=== PATIENT | male | born 1975 | race Caucasian/White ===

== ENCOUNTER 2024-06-19 10:54 | Inpatient (IN) ==
[~2024-06-19 10:54] MED LIST: ETOMIDATE 2 MG/ML 20 ML VIAL IV ONE
[2024-06-19] MEDS: SODIUM BICARB 8.4% INJ 50 MEQ/50 ML SYR IV STA (11:08)
[2024-06-19] MEDS: SODIUM CHLORIDE 0.9% 1,000 ML IV ONE ×2 (11:09→11:20)
[2024-06-19] MEDS: SODIUM BICARB 8.4% INJ 50 MEQ/50 ML SYR IV ONE (11:09)
[2024-06-19 11:14] LABS: iSTAT Blood Urea Nitrogen 48 mg/dl (7-18); iSTAT Carbon Dioxide 7 mmol/L (24-31); iSTAT Chloride 98 mmol/L (101-112); iSTAT Creatinine 2.2 mg/dl (0.6-1.3); iSTAT Glucose > 700 mg/dl (70-99); iSTAT Hematocrit 47 % (42-52); iSTAT Ionized Calcium 1.24 mmol/l (1.12-1.32); iSTAT Sodium 121 mmol/L (135-144)
[2024-06-19 11:16] LABS: Oxygen Saturation VBG 80.7 %; PCO2 VBG 52 mmHg (38-50); PO2 VBG 52 mmHg; pH VBG < 7.00 (7.36-7.41)
[2024-06-19] MEDS: LIDOCAINE 2% JELLY 5 ML TUBE EXT ONE ×2 (11:19→11:20)
[2024-06-19] MEDS ORDERED: PHARMACY GLYCEMIC MGMT CONSULT PRN (11:25)
[2024-06-19] MEDS: CEFEPIME 2000MG 2,000 MG/20 ML SYR IV STA (11:28)
--- NOTE | 2024-06-19 11:28 | XRay Report ---
XR chest 1V portable CLINICAL HISTORY: sob COMPARISON STUDY: None FINDINGS: Single view semierect portable chest demonstrates no acute cardiopulmonary process. There i s no evidence of pneumonia or pleural effusion. There is no pneumothorax or atelectasis. There are va telly nodular opacities projected over the right upper lobe. Consider chest CT the appropriate clinical context. Heart size and pulmonary vascularity are unremarkable. IMPRESSION: Vague right upper lobe nodularity. Consider chest CT correlation. ACT 112: Negative or not required by law. Electronically signed by: Brandy Moise M.D. 06/19/2024 11:27 AM
[2024-06-19 11:44] LABS: INR 1.1 (0.9-1.1); Partial Thromboplastin Time 54 Seconds (21-31); Prothrombin Time 11.5 Seconds (9.0-12.0)
[2024-06-19 11:51] LABS: Albumin Level 4.1 gm/dl (3.4-5.0); BUN Creatinine Ratio 20.6 (10-20); Bilirubin,Total 0.4 mg/dl (0.2-1.0); Calcium 9.3 mg/dl (8.6-10.3); Globulin 4.1 gm/dl (2.5-4.0); Magnesium 3.9 mg/dl (1.7-2.4); Total Protein 8.2 gm/dl (6.0-8.3); Troponin I High Sensitivity 36.1 pg/ml (0-20)
[2024-06-19 11:57] LABS: Basophils # (auto) 0.02 K/uL (0.00-0.20); Basophils % (auto) 0.1 %; Eosinophils # (auto) 0.01 K/uL (0.00-0.50); Hematocrit (blood only) 45.3 % (42.0-52.0); Hemoglobin 14.7 g/dl (14.0-18.0); Immature Granulocytes # (auto) 1.16 K/uL (0.01-0.20); Immature Granulocytes % (auto) 4.6 %; Lymphocytes # (auto) 1.87 K/uL (1.20-3.40); Lymphocytes % (auto) 7.5 %; Mean Corpuscular Hemoglobin 31.2 pg (25.0-34.0); Mean Corpuscular Hgb Conc 32.5 g/dL (32.0-36.0); Mean Corpuscular Volume 96.2 fL (80.0-100.0); Mean Platelet Volume 9.5 fL (9.4-12.4); Monocytes # (auto) 2.96 K/uL (0.11-0.59); Monocytes % (auto) 11.8 %; Neutrophils # (auto) 18.97 K/uL (1.40-6.50); Platelet Count 348 K/uL (130-400); RDW Coefficient of Variation 12.3 % (11.5-14.5); RDW Standard Deviation 43.9 fL (36.4-46.3); Red Blood Count 4.71 M/uL (4.70-6.10); White Blood Count 24.99 K/ul (4.8-10.8)
[2024-06-19 11:58] LABS: Appearance Urine Clear (Clear); Bacteria Urine Automated None Seen (None Seen); Bilirubin Urine Negative (Negative); Blood Urine 2+ (Negative); Color Urine Yellow; Epithelial Cell Urine Auto 0-2 /hpf (0-2); Glucose Urine UA 3+ (Negative); Granular Casts Urine Present /lpf (None Prsent); Ketones Urine 3+ (Negative); Leukocyte Esterase Urine Negative (Negative); Nitrite Urine Negative (Negative); Protein Urine 2+ (Negative); RBC Urine Automated 0-2 /hpf (0-2); Specific Gravity Urine 1.022 (1.000-1.030); Urobilinogen Urine Negative (Negative); WBC Urine Automated 0-5 /hpf (0-5)
[2024-06-19 11:59] LABS: Thyroid Stimulating Hormone 0.693 uIu/ml (0.300-4.500)
[2024-06-19] MEDS: NovoLIN-R BOLUS FROM BAG IV ONE (12:14)
[2024-06-19] MEDS: INSULIN REGULAR 250 UNITS in SODIUM CHLORIDE 0.9% 247.5 ML IV SCH (12:14)
[2024-06-19] MEDS: STAT IV Infusion **Titration per Protocol STA ×2 (12:17→13:57)
[2024-06-19 12:19] LABS: Adenovirus PCR Not Detected (NotDetected); Bordetella parapertussis PCR Not Detected (NotDetected); Bordetella pertussis PCR Not Detected (NotDetected); Chlamydia pneumoniae PCR Not Detected (NotDetected); Coronavirus 229E PCR Not Detected (NotDetected); Coronavirus CoV-2 (COVID19)PCR Not Detected (NotDetected); Coronavirus HKU1 PCR Not Detected (NotDetected); Coronavirus NL63 PCR Not Detected (NotDetected); Coronavirus OC43PCR Not Detected (NotDetected); Human Metapneumovirus PCR Not Detected (NotDetected); Influenza A (H1 2009) PCR DETECTED (NotDetected); Influenza B PCR Not Detected (NotDetected); Mycoplasma pneumoniae PCR Not Detected (NotDetected); Parainfluenza Virus 1 PCR Not Detected (NotDetected); Parainfluenza Virus 2 PCR Not Detected (NotDetected); Parainfluenza Virus 3 PCR Not Detected (NotDetected); Parainfluenza Virus 4 PCR Not Detected (NotDetected); Respiratory Syncytial VirusPCR Not Detected (NotDetected); Rhinovirus/Enterovirus PCR Not Detected (NotDetected)
[2024-06-19] MEDS ORDERED: LORazepam 2 MG/1 ML VIAL IV PRN ×3 (12:19)
[2024-06-19] MEDS ORDERED: Ativan IV Alcohol Withdrawal--Active Protocol IV PRN (12:19)
--- NOTE | 2024-06-19 12:21 | CT Scan Report ---
CT OF THE HEAD WITHOUT CONTRAST CLINICAL HISTORY: Altered mental status. Syncope. COMPARISON STUDY: No previous studies for comparison. CT DOSE: 1250.21 mGy.cm TECHNIQUE: Helical axial images of the head were obtained without IV contrast. Automated exposure con trol was utilized for the study. A dose lowering technique was utilized adhering to the principles o f ALARA. FINDINGS: This exam is mildly compromised by motion artifact. No acute intracranial hemorrhage, midli ne shift or mass effect is present. The ventricular system is unremarkable. The basal cisterns are pa tent. No extra-axial collections are present. There are no findings to suggest acute dural sinus thro mbosis or acute territorial infarct. No significant calvarial abnormalities are present. Visualized p ortions of the sinuses and mastoid air cells are clear. IMPRESSION: No acute intracranial findings. Exam mildly compromised by motion artifact. ACT 112: Negative or not required by law. Electronically signed by: Won Max M.D. 06/19/2024 12:20 PM
[2024-06-19] MEDS: SODIUM CHLORIDE 0.9% 500 ML IV ONE ×2 (12:24→22:36)
[2024-06-19 12:27] LABS: BUN Creatinine Ratio 20.9 (10-20); Calcium 8.7 mg/dl (8.6-10.3); Creatinine Clr Calc Pharmacy 38.5 ml/min; Phosphorus 11.1 mg/dl (2.5-4.9)
[2024-06-19] MEDS: PLASMA-LYTE A 1,000 ML IV ONE ×2 (12:27→17:40)
[2024-06-19 12:29] LABS: Amphetamines+Metham, Urine Neg (Neg); Barbiturates, Urine Neg (Neg); Benzodiazepine, Urine Neg (Neg); Cocaine, Urine Neg (Neg); Fentanyl, Urine Neg (Neg); MDMA (Ecstacy), Urine Neg (Neg); Marijuana, Urine Neg (Neg); Methadone, Urine Neg (Neg); Opiate, Urine Neg (Neg); Phencyclidine, Urine Neg (Neg)
[2024-06-19 12:32] LABS: Potassium 5.1 mmol/L (3.5-5.1)
[2024-06-19] MEDS: PLASMA-LYTE A 500 ML IV ONE (12:37)
--- NOTE | 2024-06-19 12:39 | History & Physical Report ---
Date of Service June 19, 2024 Assessment & Plan (1) HHS (hypothenar hammer syndrome): Plan: 49-year-old male with history of type 2 diabetes recently rationing insulin due to cost, alcohol abuse with high risk for withdrawal who presents with acute respiratory failure due to flu A with possible superimposed pneumonia, suspected HHS, and potential early alcohol withdrawal with last drink 2 days prior due to illness. In the ER is profoundly acidotic, was initially observed for improvement following bicarb infusions however likely worsened and with additional concern for alcohol withdrawal, persistent acidosis, and respiratory failure was intubated and admitted to the ICU Acute respiratory failure Influenza A+, suspected superimposed pneumonia -Flu A positive. Tamiflu 75 mg x 1 then 30 twice daily if able to take p.o. or OG -For secondary pneumonia suspected due to x-ray opacities, leukocytosis with left shift cefepime/vancomycin. MRSA nare pending. VBG less than 7/52/52/HCO3 not able to be performed ABG pH 6.7 //6 High risk for respiratory compromise, also with underlying concerns for severe alcohol withdrawal now 2 days out from last drink.Subsequently intubated for respiratory failure Target tidal volume 500, serial gas measurements Received 2 units of push bicarb, additional 3 units were ordered Fluids per [facility] protocol JAMES, prerenal - Baseline creatinine 1.1. Creatinine acutely elevated 2.5 to on admission. Alcohol abuse Hemoglobin 14.7, no evidence of GI bleed. Alcohol is negative on admission Per collateral from family drinks 8 large can alcoholic beverages "hard Mountain Dew "like drinks, when drinking out with friends will drink up to an additional half 5th of liquor, otherwise 1/5 or handle last around a week. No recent alcohol free days High risk for withdrawal Patient subsequently on reevaluation was intubated, switched to propofol for sedation Admitted to ICU [facility] Type II diabetic, no history of HHS/DKA Insulin gtt. adjust per protocol, goal BSG decrease of no more than around 150 -200/h Urine ketones are present, critical metabolic acidosis, pseudohyponatremia, potassium is 5.0 Per last note review patient had been on Ozempic however on talking to family he is not taking this. He switch back to [id number] Novolin 70/30 which he has been rationing out due to cost. 1 L of saline infused by time of evaluation, 2.5 L a total ordered. Switched to Plasma-Lyte Potassium is normal we will continue initial resuscitation with Plasma-Lyte. Switch to D5 LR at glycemic target per protocol BMP/mag/Phos every 4 hours, BSG hourly. Trend VBG Lactate 4.1, downtrending 3.4 on reassessment Right arterial IV stick Patient did have a right AC IV in place during resuscitation. During evaluation and resuscitation was noted to have pulsatile flow. On further evalu ation pulsatile flow into syringe was confirmed consistent with serial IV. IV was subsequently removed with pressure applied for 5 minutes and then wrapped in a dressing. Medications discussed repeated through IV or IV fluids 2 doses of bicarb DVT prophylaxis: Heparin due to renal dysfunction Diet: N.p.o. CODE STATUS: Full code. Surrogate decision maker would be patient's mother. He has no spouse or children Disposition: ICU (2) Influenza A: (3) T2DM (type 2 diabetes mellitus): (4) Alcohol use disorder: History of Present Illness Primary Care Provider: DO Barrett De La Cruz Celestine is a 49-year-old male with past medical history of type II DM, alcohol use disorder with 4-5 drinks per day generally complaint of on prior counseling visit as outpatient Leukocytosis 24.9 with left shift VBG pH less than 7, pCO2 52, HCO3 not able to be performed Bicarb 7 Anion gap [id number] 22 BSG greater than 700 Lactate 4.1 Total bilirubin normal, AST/ALT/alk phos 131/70/157 suspected shock liver Ammonia 128 High sensitive troponin 36.1 UA is not infected appearing, granular casts with profound volume contraction Flu positive Patient unable to give history due to mental status. Collateral collected from family. Was otherwise well until approximately 1 day ago when he developed chills, cough, and bodyaches. Patient is a diabetic and has been rationing his insulin for several weeks due to cost. No longer takes Ozempic, has not in many months. Also drinks round 8 large hard alcohol beverages a day (Mountain Dew hard to drink type beverages) and in addition to liquor. 1/5 to a handle of liquor might last around a week, but when out with a friend will drink around to half liquor a night "and still be going for more ". No alcohol free days and recent memory of family, although patient last drink was around 2 days ago due to feeling acutely ill. No history of heart disease or lung disease No known history of medication allergies Family is not aware of any recreational drug use Full code. Surrogate decision maker would be patient's mother. He has no living children or spouse Allergies Allergy/AdvReac Type Severity Reaction Status Date / Time No Known Allergies Allergy Verified 09/28/23 11:33 Home Medications Medication Instructions Recorded Confirmed Type multivitamin 1 tab PO QAM 06/08/22 06/19/24 History blood-glucose sensor (FreeStyle #2 ea 12/31/23 12/31/23 Rx Valeri 3 Sensor device) albuterol sulfate 90 mcg/actuation 1 puff inhalation DIRECTED PRN 06/19/24 06/19/24 History aerosol inhaler sob atorvastatin 10 mg tablet 10 mg PO UD 06/19/24 06/19/24 History azithromycin 250 mg tablet 250 mg PO DIRECTED 06/19/24 06/19/24 History semaglutide 0.25 mg or 0.5 mg (2 0.5 mg subcut UD 06/19/24 06/19/24 History mg/3 mL) subcutaneous pen injector (Ozempic) valacyclovir 500 mg tablet 500 mg PO UD PRN Outbreak 06/19/24 06/19/24 History Past Med/Surg History Problem List (Updated 06/19/24 @ 13:44 by Rosendo Wang MD) Influenza A HHS (hypothenar hammer syndrome) Encounter for pre-operative examination Alcohol use disorder T2DM (type 2 diabetes mellitus) Medical History Alcohol use disorder DM type 2 (diabetes mellitus, type 2) History of gastroesophageal reflux (GERD) denies current issues. Suspected sleep apnea Surgical History History of ankle surgery Rt History of wisdom tooth extraction Family History (Updated 07/23/22 @ 10:11 by MÓNICA Gaffney) Mother Benign breast neoplasm Breast cancer Father Heart disease Grandfather (Paternal) Myocardial infarction Other No family history of adverse response to anesthesia Denies family history of Ovarian cancer Prostate cancer Diabetes Lung cancer Colorectal cancer Stroke Social History (Updated 07/23/22 @ 10:09 by MÓNICA Gaffney) Smoking Status: Never smoker Tobacco Type: Cigarettes Age Started Using Tobacco: 14; Age Quit Using Tobacco: 45; Second Hand Exposure: No; Do You Dip or Chew Tobacco: No; Hx Alcohol Use: Yes Alcohol type: beer, wine and hard liquor Alcohol Intake Frequency: 4 or More x per/Week Hx Substance Use: Yes Last Used Substance: Days (ago) Preferred Language: Portuguese Communication Ability: Effective Visual Impairment: No Limitations Hearing Ability: Normal Emergency Department Director Required: No Beliefs That Will Affect Care: None marital status: Single Current Living Situation: Significant Other and Other Current Living Situation Comment: room mate current occupational status: employed 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 Somnolent, gradually improves and opens eyes to names but does not follow command. Kussmaul breathing HEENT: Atraumatic, normocephalic. Pulm: Moderate air movement, Kussmaul breathing. No wheezing or rales Cardiac: Regular, tachycardic Abdominal: Nontender, nondistended, soft. BS present. No contusions Extremities: Dry. No contusions. Slight mottling of the lower extremities on initial exam, improved on reexam post fluids Results & Data Results & Data Vital Signs (Past 12 Hours) Vital Signs Pulse Resp BP Pulse Ox O2 Del Method 06/19/24 11:20 93 H 06/19/24 10:58 94 H 23 120/71 97 Room Air PG Care Time/CCT Total # of Minutes Spent Total Time Spent with Patient: Total time spent is greater than 50% in coordination of care (as documented) at patient's floor/unit and/or counseling patient: Coding Level of Care Code 66199 INT INP/OBS CARE MIN Diagnoses HHS (hypothenar hammer syndrome) I73.89 Influenza A J10.1 T2DM (type 2 diabetes mellitus) E11.9 Alcohol use disorder F19.90
[2024-06-19] MEDS: FOLIC ACID 1 MG in SYRINGE 9.8 ML IV ONE (12:51)
--- NOTE | 2024-06-19 13:02 | Emergency Department Note ---
Impression & Plan Altered mental status, Influenza A, Dehydration, DKA (diabetic ketoacidosis), Acute hyperkalemia, Hyperammonemia, Lactic acidosis, Fall ED Provider Note NAME: JALEN NICOLE III AGE: 49 SEX: M : 1975 ARRIVES VIA: Walk-In INFORMANT: [Patient][ems, family] ED PROVIDER(S): [Ricardo Sahu MD] CHIEF COMPLAINT: Altered mental state HISTORY OF PRESENT ILLNESS: The patient is a 49-year-old male who is diabetic. He has a history of alcohol abuse. Apparently, he has been coughing the last few days and had a televisit yesterday and was prescribed Zithromax. This morning, several hours ago, he was found on the floor and was altered and confused. The family felt his blood sugar may be low and they tried to give him some additional sugary foods but, things did not improve. The family brought him here for evaluation, he was brought from the car to room B1. I was called emergently to see the patient. As per the family, the patient has not been consuming alcohol heavily. Other than the cough, he seemed fine yesterday evening. The patient can provide no history given the altered mental state. PMHx/PSHx/Social Hx: See Below PHYSICAL EXAM: GENERAL: Patient is in mild distress. HEENT: No acute trauma, normocephalic atraumatic, mucous membranes markedly dry, no nasal congestion. NECK: No stridor, no adenopathy, no meningismus, trachea is midline. LUNGS: Lungs appear clear although, he has an increased respiratory rate. HEART: Without murmurs gallops or rubs, regular rate and rhythm. ABDOMEN: Soft, nontender, no peritonitis. No distention. EXTREMITIES: No cyanosis, full range of motion of all the joints without pain or difficulty. NEUROLOGIC: Confused, does move all extremities, awakes to loud voice or pain. SKIN: No jaundice, no diaphoresis. DIFFERENTIAL DIAGNOSIS: Sepsis or bacteremia, DKA, acidosis, intracranial bleeding, alcohol abuse, seizure, among others. EMERGENCY DEPARTMENT PROCEDURES: MEDICAL DECISION MAKING: There is a significant leukocytosis of 25,000, this could be consistent with infection or just the stress of his current condition. There is no anemia. There was a normal platelet count. INR was normal however, the PTT was somewhat elevated. Venous blood gas showed a significant acidosis with a pH of less than 7. pCO2 was elevated as well at 52. Renal panel testing shows a hyponatremia at 121, the patient was acidotic with a CO2 of 6. Blood sugar was quite high at over 1000. There was renal failure with a creatinine of 2.5. Lactic acid level was high at over 4. The lactic acid elevation could be secondary to dehydration or potentially infection/sepsis. Liver enzyme elevation was noted although, the bilirubin was not high. Ammonia level was quite high at over 100. Total CK was not elevated making rhabdomyolysis unlikely. ECG showed a normal sinus rhythm, no ischemia. Cardiac enzyme testing x 1 was slightly elevated, this elevation could be secondary to mismatch from his illness or potentially cardiac injury. Urinalysis showed ketones, glucose and some blood, no true findings of infection. Urine tox was negative. Alcohol level was undetectable. Respiratory bio fire was positive for influenza. Chest x-ray showed some potential congestion to the right upper lung. No CHF. No cardiomegaly. Brain CT showed no acute bleed or mass effect. The patient was brought immediately to one of our large rooms. I was called emergently to evaluate the patient. Patient received 2.5 L of IV saline. This should cover for 30 cc/kg of saline per sepsis protocol based on actual body weight. He was placed on an insulin drip. He was given 2 Amps of IV bicarbonate. He received IV cefepime as antibiotic coverage. A Mims catheter was placed to monitor urine output. The patient had a very large amount of urine in his bladder, almost 2000 cc drained. I did call and speak with the ICU attending right after my initial assessment. The patient was quite ill and was going to require an ICU stay. The patient was maintaining his airway despite his mental status change. Given the severe metabolic acidosis, I was hesitant to perform endotracheal intubation. The patient did seem to be a bit more awake and more responsive after his resuscitation. The patient was seen by the ICU staff, after some discussion and more observation, the patient was intubated by the ICU staff. I did speak with the family, the patient is quite ill, he will require further resuscitation/care here at [facility]. He warrants an ICU admission. The patient has influenza, dehydration, DKA and hyperammonemia. He may be septic. His altered mental status is multifactorial. Prior/Outside records/notes reviewed: None ECG per my interpretation: Indication was altered mental state. The ECG shows a normal sinus rhythm with a rate of 95. There is significant baseline artifact. There is no acute ST elevation. There are some slightly peaked T waves. No PVCs. QTc is 487. Continuous Cardiac Monitoring per my interpretation: An order was placed for continuous cardiac monitoring. The monitor shows a rate of 97 with normal sinus rhythm. Imaging/x-ray results per my interpretation: Chest x-ray some potential patchy congestion to the right upper lung, no CHF or pneumothorax. Chronic Medical/Social conditions affecting care: History of alcohol abuse. Care/Management discussed with: ICU attending-Dr. Garg. Case management and the on-call hospitalist. Level of care consideration(s): After review of the information above and other included data: --I believe the patient requires escalation of care to admission Critical Care Note: I have personally spent 65 minutes of critical care time in the direct management of this patient. This includes bedside care, interpretation of diagnostic studies, and testing, discussion with consultants, patient, and family members, and other required patient management activities. This 65 minutes is in excess of all separately billable procedures. DISPOSITION: Admission Past Med/Surg History Problem List (Updated 06/19/24 @ 16:05 by Ricardo Sahu MD) Fall (Acute) Lactic acidosis (Acute) Hyperammonemia (Acute) Acute hyperkalemia (Acute) DKA (diabetic ketoacidosis) (Acute) Dehydration (Acute) Influenza A (Acute) Altered mental status (Acute) Influenza A HHS (hypothenar hammer syndrome) Encounter for pre-operative examination Alcohol use disorder T2DM (type 2 diabetes mellitus) Medical History Alcohol use disorder DM type 2 (diabetes mellitus, type 2) Suspected sleep apnea History of gastroesophageal reflux (GERD) denies current issues. Surgical History History of ankle surgery Rt History of wisdom tooth extraction Family History Mother Benign breast neoplasm Breast cancer Father Heart disease Grandfather (Paternal) Myocardial infarction Other No family history of adverse response to anesthesia Denies family history of Ovarian cancer Prostate cancer Diabetes Lung cancer Colorectal cancer Stroke Social History Smoking Status: Never smoker Tobacco Type: Cigarettes Age Started Using Tobacco: 14; Age Quit Using Tobacco: 45; Second Hand Exposure: No; Do You Dip or Chew Tobacco: No; Hx Alcohol Use: Yes Alcohol type: beer, wine and hard liquor Alcohol Intake Frequency: 4 or More x per/Week Hx Substance Use: Yes Last Used Substance: Days (ago) Preferred Language: Trinidadian Communication Ability: Effective Visual Impairment: No Limitations Hearing Ability: Normal Assistant Professor Of Criminal Justice Required: No Beliefs That Will Affect Care: None marital status: Single Current Living Situation: Significant Other and Other Current Living Situation Comment: room mate current occupational status: employed 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[employer]) How many Children do You have: 0 Feels Safe at Home: Yes Childhood Exposure to Second-Hand Smoke: Yes Diet: diabetic and regular caffeine: Yes Dental Care, Regularly: No Physical Activity Frequency: Does not Exercise Seatbelt Use: always Sunscreen Use: Yes Assistive Devices: None Allergies Allergies Allergy/AdvReac Type Severity Reaction Status Date / Time No Known Allergies Allergy Verified 09/28/23 11:33 Home Meds Home Medications Medication Instructions Recorded Confirmed multivitamin 1 tab PO QAM 06/08/22 06/19/24 albuterol sulfate 90 mcg/actuation 1 puff inhalation DIRECTED PRN 06/19/24 06/19/24 aerosol inhaler sob atorvastatin 10 mg tablet 10 mg PO UD 06/19/24 06/19/24 azithromycin 250 mg tablet 250 mg PO DIRECTED 06/19/24 06/19/24 semaglutide 0.25 mg or 0.5 mg (2 0.5 mg subcut UD 06/19/24 06/19/24 mg/3 mL) subcutaneous pen injector (Ozempic) valacyclovir 500 mg tablet 500 mg PO UD PRN Outbreak 06/19/24 06/19/24 Previous Rx's Medication Instructions Recorded blood-glucose sensor (FreeStyle #2 ea 12/31/23 Valeri 3 Sensor device) Results & Data (ED) Vital Signs Vital Signs - 24 hr 06/19/24 10:58 06/19/24 11:20 06/19/24 11:20 Pulse Rate 94 H 93 H Pulse Rate from SpO2 Sensor Respiratory Rate 23 Respiratory Effort / Characteristics Labored Respiratory Depth Deep Respiratory Pattern Regular Blood Pressure 120/71 105/58 L Blood Pressure Mean 87 87 Blood Pressure Position Lying Pulse Oximetry 97 Oxygen Delivery Method Room Air Oxygen Flow Rate Sepsis Recent Fever Within 48 Hours No Sepsis New/Unexplained Change in Mental Status No Sepsis Action Taken by Nursing No Action Required End-Tidal CO2 06/19/24 11:27 06/19/24 11:27 06/19/24 11:30 Pulse Rate 96 H Pulse Rate from SpO2 Sensor 95 H Respiratory Rate 19 Respiratory Effort / Characteristics Respiratory Depth Respiratory Pattern Blood Pressure 95/58 L 92/65 L Blood Pressure Mean 65 80 Blood Pressure Position Pulse Oximetry 91 Oxygen Delivery Method Room Air Oxygen Flow Rate Sepsis Recent Fever Within 48 Hours Sepsis New/Unexplained Change in Mental Status Sepsis Action Taken by Nursing End-Tidal CO2 06/19/24 11:35 06/19/24 11:36 06/19/24 11:39 Pulse Rate 94 H 91 H Pulse Rate from SpO2 Sensor 94 H Respiratory Rate 23 24 Respiratory Effort / Characteristics Respiratory Depth Respiratory Pattern Blood Pressure 102/61 Blood Pressure Mean 72 Blood Pressure Position Pulse Oximetry 84 L Oxygen Delivery Method Room Air Oxygen Flow Rate Sepsis Recent Fever Within 48 Hours Sepsis New/Unexplained Change in Mental Status Sepsis Action Taken by Nursing End-Tidal CO2 06/19/24 11:40 06/19/24 11:42 06/19/24 11:45 Pulse Rate 90 88 Pulse Rate from SpO2 Sensor 90 Respiratory Rate 18 24 Respiratory Effort / Characteristics Respiratory Depth Respiratory Pattern Blood Pressure 99/57 L Blood Pressure Mean 70 Blood Pressure Position Pulse Oximetry 85 L Oxygen Delivery Method Room Air Oxygen Flow Rate Sepsis Recent Fever Within 48 Hours Sepsis New/Unexplained Change in Mental Status Sepsis Action Taken by Nursing End-Tidal CO2 06/19/24 11:45 06/19/24 12:21 06/19/24 12:24 Pulse Rate 88 90 Pulse Rate from SpO2 Sensor 88 86 Respiratory Rate 26 H 24 Respiratory Effort / Characteristics Respiratory Depth Respiratory Pattern Blood Pressure 102/60 Blood Pressure Mean 75 Blood Pressure Position Pulse Oximetry 94 92 Oxygen Delivery Method Nasal Cannula Nasal Cannula Oxygen Flow Rate 2 2 Sepsis Recent Fever Within 48 Hours Sepsis New/Unexplained Change in Mental Status Sepsis Action Taken by Nursing End-Tidal CO2 06/19/24 12:30 06/19/24 12:33 06/19/24 12:35 Pulse Rate 91 H Pulse Rate from SpO2 Sensor 91 H Respiratory Rate 25 H Respiratory Effort / Characteristics Respiratory Depth Respiratory Pattern Blood Pressure 99/67 L 99/63 L Blood Pressure Mean 89 74 Blood Pressure Position Pulse Oximetry 91 Oxygen Delivery Method Room Air Oxygen Flow Rate Sepsis Recent Fever Within 48 Hours Sepsis New/Unexplained Change in Mental Status Sepsis Action Taken by Nursing End-Tidal CO2 06/19/24 12:39 06/19/24 12:50 06/19/24 12:51 Pulse Rate 90 90 Pulse Rate from SpO2 Sensor 94 H 87 Respiratory Rate 46 H 26 H Respiratory Effort / Characteristics Respiratory Depth Respiratory Pattern Blood Pressure 98/55 L Blood Pressure Mean 66 Blood Pressure Position Pulse Oximetry 90 92 Oxygen Delivery Method Room Air Room Air Oxygen Flow Rate Sepsis Recent Fever Within 48 Hours Sepsis New/Unexplained Change in Mental Status Sepsis Action Taken by Nursing End-Tidal CO2 06/19/24 12:55 06/19/24 13:00 06/19/24 13:00 Pulse Rate 90 Pulse Rate from SpO2 Sensor 91 H Respiratory Rate 26 H Respiratory Effort / Characteristics Respiratory Depth Respiratory Pattern Blood Pressure 94/72 L 101/57 L Blood Pressure Mean 81 77 Blood Pressure Position Pulse Oximetry 86 L Oxygen Delivery Method Room Air Oxygen Flow Rate Sepsis Recent Fever Within 48 Hours Sepsis New/Unexplained Change in Mental Status Sepsis Action Taken by Nursing End-Tidal CO2 06/19/24 13:03 06/19/24 13:05 06/19/24 13:06 Pulse Rate 89 94 H Pulse Rate from SpO2 Sensor 89 92 H Respiratory Rate 24 22 Respiratory Effort / Characteristics Respiratory Depth Respiratory Pattern Blood Pressure 87/63 L Blood Pressure Mean 67 Blood Pressure Position Pulse Oximetry 87 L 87 L Oxygen Delivery Method Room Air Room Air Oxygen Flow Rate Sepsis Recent Fever Within 48 Hours Sepsis New/Unexplained Change in Mental Status Sepsis Action Taken by Nursing End-Tidal CO2 06/19/24 13:15 06/19/24 13:18 06/19/24 13:20 Pulse Rate 93 H Pulse Rate from SpO2 Sensor 93 H Respiratory Rate 24 Respiratory Effort / Characteristics Respiratory Depth Respiratory Pattern Blood Pressure 95/69 L 99/58 L Blood Pressure Mean 75 72 Blood Pressure Position Pulse Oximetry 100 Oxygen Delivery Method Oxymask Oxygen Flow Rate Sepsis Recent Fever Within 48 Hours Sepsis New/Unexplained Change in Mental Status Sepsis Action Taken by Nursing End-Tidal CO2 06/19/24 13:25 06/19/24 13:30 06/19/24 13:35 Pulse Rate Pulse Rate from SpO2 Sensor Respiratory Rate Respiratory Effort / Characteristics Respiratory Depth Respiratory Pattern Blood Pressure 96/55 L 82/59 L 82/57 L Blood Pressure Mean 64 61 63 Blood Pressure Position Pulse Oximetry Oxygen Delivery Method Oxygen Flow Rate Sepsis Recent Fever Within 48 Hours Sepsis New/Unexplained Change in Mental Status Sepsis Action Taken by Nursing End-Tidal CO2 06/19/24 13:36 06/19/24 13:40 06/19/24 13:45 Pulse Rate 92 H Pulse Rate from SpO2 Sensor 92 H Respiratory Rate Respiratory Effort / Characteristics Respiratory Depth Respiratory Pattern Blood Pressure 87/58 L 88/58 L Blood Pressure Mean 68 67 Blood Pressure Position Pulse Oximetry 99 Oxygen Delivery Method Mechanical Vent Oxygen Flow Rate Sepsis Recent Fever Within 48 Hours Sepsis New/Unexplained Change in Mental Status Sepsis Action Taken by Nursing End-Tidal CO2 06/19/24 13:48 06/19/24 13:50 06/19/24 13:51 Pulse Rate 90 91 H Pulse Rate from SpO2 Sensor 90 91 H Respiratory Rate 28 H 19 Respiratory Effort / Characteristics Respiratory Depth Respiratory Pattern Blood Pressure 91/59 L Blood Pressure Mean 68 Blood Pressure Position Pulse Oximetry 100 100 Oxygen Delivery Method Mechanical Vent Mechanical Vent Oxygen Flow Rate Sepsis Recent Fever Within 48 Hours Sepsis New/Unexplained Change in Mental Status Sepsis Action Taken by Nursing End-Tidal CO2 30 29 Home Medications Current Medication List: was personally reviewed by me Laboratory Data Attestation: I reviewed the patient's lab results. 06/19/24 11:00 06/19/24 11:27 Lab Results 06/19/24 06/19/24 06/19/24 Range/Units 11:00 11:02 11:13 WBC 24.99 H (4.8-10.8) K/ul RBC 4.71 (4.70-6.10) M/uL Hgb 14.7 (14.0-18.0) g/dl POC Hgb 16.0 (14.0-18.0) g/dl Hct 45.3 (42.0-52.0) % POC Hct 47 (42-52) % MCV 96.2 (80.0-100.0) fL MCH 31.2 (25.0-34.0) pg MCHC 32.5 (32.0-36.0) g/dL RDW Std Deviation 43.9 (36.4-46.3) fL RDW Coeff of Cj 12.3 (11.5-14.5) % Plt Count 348 (130-400) K/uL MPV 9.5 (9.4-12.4) fL Immature Gran % (Auto) 4.6 % Neut % (Auto) 76.0 % Lymph % (Auto) 7.5 % [place] % (Auto) 11.8 % Eos % (Auto) 0.0 % Baso % (Auto) 0.1 % Neut # (Auto) 18.97 H (1.40-6.50) K/uL Lymph # (Auto) 1.87 (1.20-3.40) K/uL [place] # (Auto) 2.96 H (0.11-0.59) K/uL Eos # (Auto) 0.01 (0.00-0.50) K/uL Baso # (Auto) 0.02 (0.00-0.20) K/uL Immature Gran # (Auto) 1.16 H (0.01-0.20) K/uL PT 11.5 (9.0-12.0) Seconds INR 1.1 (0.9-1.1) APTT 54 H (21-31) Seconds PTT Ratio 2.0 Specimen Type POC pH (7.35-7.45) POC pCO2 (35-46) mmHg POC pO2 (80-95) mmHg POC HCO3 (19-24) rolo/L POC Base Excess (-9-1.8) rolo/L POC ABG O2 Sat (90-95) % VBG pH < 7.00 L (7.36-7.41) VBG pCO2 52 H (38-50) mmHg VBG pO2 52 mmHg VBG HCO3 TNP VBG O2 Saturation 80.7 % VBG Base Excess TNP POC Sodium 121 L (135-144) mmol/L Sodium 122 L (136-145) mmol/L POC Potassium 5.0 (3.3-5.0) mmol/L Potassium 5.0 (3.5-5.1) mmol/L POC Chloride 98 L (101-112) mmol/L Chloride 85 L (98-107) mmol/L Carbon Dioxide 6 L* (21-32) mmol/L POC Total CO2 7 L* (24-31) mmol/L Anion Gap 31 H (3-11) POC Anion Gap 22.0 (16-25) mmol/L POC BUN 48 H (7-18) mg/dl BUN 52 H (6-23) mg/dl Creatinine 2.52 H (0.6-1.4) mg/dl POC Creatinine 2.2 H (0.6-1.3) mg/dl Est Cr Clr Drug Dosing 38.0 ml/min eGFR 30.24 BUN/Creatinine Ratio 20.6 H (10-20) Glucose 1018 H* (70-99(Fasting)) mg/dl POC Glucose (70-99) mg/dl POC Glucose (other) > 700 H* (70-99) mg/dl Lactate 4.1 H* (0.4-2.0) mmol/L Calcium 9.3 (8.6-10.3) mg/dl POC Ioniz Calcium Arie 1.24 (1.12-1.32) mmol/l Phosphorus (2.5-4.9) mg/dl Magnesium 3.9 H (1.7-2.4) mg/dl Total Bilirubin 0.4 (0.2-1.0) mg/dl AST 131 H (13-39) U/L ALT 72 H (7-52) U/L Alkaline Phosphatase 157 H (34-104) U/L Ammonia 128.0 H (18-72) umol/L Total Creatine Kinase 136 (30-223) U/L Troponin I High Sens 36.1 H (0-20) pg/ml Total Protein 8.2 (6.0-8.3) gm/dl Albumin 4.1 (3.4-5.0) gm/dl Globulin 4.1 H (2.5-4.0) gm/dl Albumin/Globulin Ratio 1.0 (0.9-2) TSH 0.693 (0.300-4.500) uIu/ml Urine Color Urine Appearance (Clear) Urine pH (4.5-7.5) Ur Specific Holcomb (1.000-1.030) Urine Protein (Negative) Urine Glucose (UA) (Negative) Urine Ketones (Negative) Urine Blood (Negative) Urine Nitrite (Negative) Urine Bilirubin (Negative) Urine Urobilinogen (Negative) Ur Leukocyte Esterase (Negative) Urine WBC (Auto) (0-5) /hpf Urine RBC (Auto) (0-2) /hpf U Hyaline Cast (Auto) (0-2) /lpf U Epithel Cells (Auto) (0-2) /hpf Urine Bacteria (Auto) (None Seen) Granular Casts (None Prsent) /lpf Urine Opiates Screen (Neg) Ur Methadone, Qual (Neg) Urine Fentanyl Screen (Neg) Urine Barbiturates (Neg) Ur Phencyclidine (PCP) (Neg) U Amphetamin/Meth Scrn (Neg) MDMA (Ecstasy) Screen (Neg) U Benzodiazepines Scrn (Neg) Ur Cocaine Metabolite (Neg) U Marijuana (THC) Screen (Neg) Ethyl Alcohol mg/dL (<10.0) mg/dl 06/19/24 06/19/24 06/19/24 Range/Units 11:16 11:25 11:27 WBC (4.8-10.8) K/ul RBC (4.70-6.10) M/uL Hgb (14.0-18.0) g/dl POC Hgb (14.0-18.0) g/dl Hct (42.0-52.0) % POC Hct (42-52) % MCV (80.0-100.0) fL MCH (25.0-34.0) pg MCHC (32.0-36.0) g/dL RDW Std Deviation (36.4-46.3) fL RDW Coeff of Cj (11.5-14.5) % Plt Count (130-400) K/uL MPV (9.4-12.4) fL Immature Gran % (Auto) % Neut % (Auto) % Lymph % (Auto) % [place] % (Auto) % Eos % (Auto) % Baso % (Auto) % Neut # (Auto) (1.40-6.50) K/uL Lymph # (Auto) (1.20-3.40) K/uL [place] # (Auto) (0.11-0.59) K/uL Eos # (Auto) (0.00-0.50) K/uL Baso # (Auto) (0.00-0.20) K/uL Immature Gran # (Auto) (0.01-0.20) K/uL PT (9.0-12.0) Seconds INR (0.9-1.1) APTT (21-31) Seconds PTT Ratio Specimen Type POC pH (7.35-7.45) POC pCO2 (35-46) mmHg POC pO2 (80-95) mmHg POC HCO3 (19-24) rolo/L POC Base Excess (-9-1.8) rolo/L POC ABG O2 Sat (90-95) % VBG pH < 7.00 L (7.36-7.41) VBG pCO2 (38-50) mmHg VBG pO2 mmHg VBG HCO3 VBG O2 Saturation % VBG Base Excess POC Sodium (135-144) mmol/L Sodium 125 L (136-145) mmol/L POC Potassium (3.3-5.0) mmol/L Potassium 5.1 (3.5-5.1) mmol/L POC Chloride (101-112) mmol/L Chloride 87 L (98-107) mmol/L Carbon Dioxide 9 L* (21-32) mmol/L POC Total CO2 (24-31) mmol/L Anion Gap 29 H (3-11) POC Anion Gap (16-25) mmol/L POC BUN (7-18) mg/dl BUN 52 H (6-23) mg/dl Creatinine 2.49 H (0.6-1.4) mg/dl POC Creatinine (0.6-1.3) mg/dl Est Cr Clr Drug Dosing 38.5 ml/min eGFR 30.68 BUN/Creatinine Ratio 20.9 H (10-20) Glucose 1008 H* (70-99(Fasting)) mg/dl POC Glucose (70-99) mg/dl POC Glucose (other) (70-99) mg/dl Lactate (0.4-2.0) mmol/L Calcium 8.7 (8.6-10.3) mg/dl POC Ioniz Calcium Arie (1.12-1.32) mmol/l Phosphorus 11.1 H (2.5-4.9) mg/dl Magnesium (1.7-2.4) mg/dl Total Bilirubin (0.2-1.0) mg/dl AST (13-39) U/L ALT (7-52) U/L Alkaline Phosphatase (34-104) U/L Ammonia (18-72) umol/L Total Creatine Kinase (30-223) U/L Troponin I High Sens (0-20) pg/ml Total Protein (6.0-8.3) gm/dl Albumin (3.4-5.0) gm/dl Globulin (2.5-4.0) gm/dl Albumin/Globulin Ratio (0.9-2) TSH (0.300-4.500) uIu/ml Urine Color Yellow Urine Appearance Clear (Clear) Urine pH 5.0 (4.5-7.5) Ur Specific [place] 1.022 (1.000-1.030) Urine Protein 2+ H (Negative) Urine Glucose (UA) 3+ H (Negative) Urine Ketones 3+ H (Negative) Urine Blood 2+ H (Negative) Urine Nitrite Negative (Negative) Urine Bilirubin Negative (Negative) Urine Urobilinogen Negative (Negative) Ur Leukocyte Esterase Negative (Negative) Urine WBC (Auto) 0-5 (0-5) /hpf Urine RBC (Auto) 0-2 (0-2) /hpf U Hyaline Cast (Auto) 6-10 H (0-2) /lpf U Epithel Cells (Auto) 0-2 (0-2) /hpf Urine Bacteria (Auto) None Seen (None Seen) Granular Casts Present A (None Prsent) /lpf Urine Opiates Screen Neg (Neg) Ur Methadone, Qual Neg (Neg) Urine Fentanyl Screen Neg (Neg) Urine Barbiturates Neg (Neg) Ur Phencyclidine (PCP) Neg (Neg) U Amphetamin/Meth Scrn Neg (Neg) MDMA (Ecstasy) Screen Neg (Neg) U Benzodiazepines Scrn Neg (Neg) Ur Cocaine Metabolite Neg (Neg) U Marijuana (THC) Screen Neg (Neg) Ethyl Alcohol mg/dL < 10.0 (<10.0) mg/dl 06/19/24 06/19/24 06/19/24 Range/Units 12:51 13:14 13:20 WBC (4.8-10.8) K/ul RBC (4.70-6.10) M/uL Hgb (14.0-18.0) g/dl POC Hgb 11.9 L (14.0-18.0) g/dl Hct (42.0-52.0) % POC Hct 35 L (42-52) % MCV (80.0-100.0) fL MCH (25.0-34.0) pg MCHC (32.0-36.0) g/dL RDW Std Deviation (36.4-46.3) fL RDW Coeff of Cj (11.5-14.5) % Plt Count (130-400) K/uL MPV (9.4-12.4) fL Immature Gran % (Auto) % Neut % (Auto) % Lymph % (Auto) % [place] % (Auto) % Eos % (Auto) % Baso % (Auto) % Neut # (Auto) (1.40-6.50) K/uL Lymph # (Auto) (1.20-3.40) K/uL [place] # (Auto) (0.11-0.59) K/uL Eos # (Auto) (0.00-0.50) K/uL Baso # (Auto) (0.00-0.20) K/uL Immature Gran # (Auto) (0.01-0.20) K/uL PT (9.0-12.0) Seconds INR (0.9-1.1) APTT (21-31) Seconds PTT Ratio Specimen Type Arterial POC pH 6.76 L* (7.35-7.45) POC pCO2 45 (35-46) mmHg POC pO2 68 L (80-95) mmHg POC HCO3 6 L (19-24) rolo/L POC Base Excess -29.0 L (-9-1.8) rolo/L POC ABG O2 Sat 68.0 L (90-95) % VBG pH (7.36-7.41) VBG pCO2 (38-50) mmHg VBG pO2 mmHg VBG HCO3 VBG O2 Saturation % VBG Base Excess POC Sodium 127 L (135-144) mmol/L Sodium (136-145) mmol/L POC Potassium 4.7 (3.3-5.0) mmol/L Potassium (3.5-5.1) mmol/L POC Chloride (101-112) mmol/L Chloride (98-107) mmol/L Carbon Dioxide (21-32) mmol/L POC Total CO2 8 L* (24-31) mmol/L Anion Gap (3-11) POC Anion Gap (16-25) mmol/L POC BUN (7-18) mg/dl BUN (6-23) mg/dl Creatinine (0.6-1.4) mg/dl POC Creatinine (0.6-1.3) mg/dl Est Cr Clr Drug Dosing ml/min eGFR BUN/Creatinine Ratio (10-20) Glucose (70-99(Fasting)) mg/dl POC Glucose > 600 H* (70-99) mg/dl POC Glucose (other) (70-99) mg/dl Lactate 3.4 H* (0.4-2.0) mmol/L Calcium (8.6-10.3) mg/dl POC Ioniz Calcium Arie (1.12-1.32) mmol/l Phosphorus (2.5-4.9) mg/dl Magnesium (1.7-2.4) mg/dl Total Bilirubin (0.2-1.0) mg/dl AST (13-39) U/L ALT (7-52) U/L Alkaline Phosphatase (34-104) U/L Ammonia (18-72) umol/L Total Creatine Kinase (30-223) U/L Troponin I High Sens 34.9 H (0-20) pg/ml Total Protein (6.0-8.3) gm/dl Albumin (3.4-5.0) gm/dl Globulin (2.5-4.0) gm/dl Albumin/Globulin Ratio (0.9-2) TSH (0.300-4.500) uIu/ml Urine Color Urine Appearance (Clear) Urine pH (4.5-7.5) Ur Specific [place] (1.000-1.030) Urine Protein (Negative) Urine Glucose (UA) (Negative) Urine Ketones (Negative) Urine Blood (Negative) Urine Nitrite (Negative) Urine Bilirubin (Negative) Urine Urobilinogen (Negative) Ur Leukocyte Esterase (Negative) Urine WBC (Auto) (0-5) /hpf Urine RBC (Auto) (0-2) /hpf U Hyaline Cast (Auto) (0-2) /lpf U Epithel Cells (Auto) (0-2) /hpf Urine Bacteria (Auto) (None Seen) Granular Casts (None Prsent) /lpf Urine Opiates Screen (Neg) Ur Methadone, Qual (Neg) Urine Fentanyl Screen (Neg) Urine Barbiturates (Neg) Ur Phencyclidine (PCP) (Neg) U Amphetamin/Meth Scrn (Neg) MDMA (Ecstasy) Screen (Neg) U Benzodiazepines Scrn (Neg) Ur Cocaine Metabolite (Neg) U Marijuana (THC) Screen (Neg) Ethyl Alcohol mg/dL (<10.0) mg/dl 06/19/24 Range/Units 13:52 WBC (4.8-10.8) K/ul RBC (4.70-6.10) M/uL Hgb (14.0-18.0) g/dl POC Hgb 12.6 L (14.0-18.0) g/dl Hct (42.0-52.0) % POC Hct 37 L (42-52) % MCV (80.0-100.0) fL MCH (25.0-34.0) pg MCHC (32.0-36.0) g/dL RDW Std Deviation (36.4-46.3) fL RDW Coeff of Cj (11.5-14.5) % Plt Count (130-400) K/uL MPV (9.4-12.4) fL Immature Gran % (Auto) % Neut % (Auto) % Lymph % (Auto) % [place] % (Auto) % Eos % (Auto) % Baso % (Auto) % Neut # (Auto) (1.40-6.50) K/uL Lymph # (Auto) (1.20-3.40) K/uL [place] # (Auto) (0.11-0.59) K/uL Eos # (Auto) (0.00-0.50) K/uL Baso # (Auto) (0.00-0.20) K/uL Immature Gran # (Auto) (0.01-0.20) K/uL PT (9.0-12.0) Seconds INR (0.9-1.1) APTT (21-31) Seconds PTT Ratio Specimen Type Arterial POC pH 6.94 L* (7.35-7.45) POC pCO2 46 (35-46) mmHg POC pO2 397 H (80-95) mmHg POC HCO3 10 L (19-24) rolo/L POC Base Excess -22.0 L (-9-1.8) rolo/L POC ABG O2 Sat 100.0 H (90-95) % VBG pH (7.36-7.41) VBG pCO2 (38-50) mmHg VBG pO2 mmHg VBG HCO3 VBG O2 Saturation % VBG Base Excess POC Sodium 128 L (135-144) mmol/L Sodium (136-145) mmol/L POC Potassium 4.0 (3.3-5.0) mmol/L Potassium (3.5-5.1) mmol/L POC Chloride (101-112) mmol/L Chloride (98-107) mmol/L Carbon Dioxide (21-32) mmol/L POC Total CO2 11 L (24-31) mmol/L Anion Gap (3-11) POC Anion Gap (16-25) mmol/L POC BUN (7-18) mg/dl BUN (6-23) mg/dl Creatinine (0.6-1.4) mg/dl POC Creatinine (0.6-1.3) mg/dl Est Cr Clr Drug Dosing ml/min eGFR BUN/Creatinine Ratio (10-20) Glucose (70-99(Fasting)) mg/dl POC Glucose (70-99) mg/dl POC Glucose (other) (70-99) mg/dl Lactate (0.4-2.0) mmol/L Calcium (8.6-10.3) mg/dl POC Ioniz Calcium Arie (1.12-1.32) mmol/l Phosphorus (2.5-4.9) mg/dl Magnesium (1.7-2.4) mg/dl Total Bilirubin (0.2-1.0) mg/dl AST (13-39) U/L ALT (7-52) U/L Alkaline Phosphatase (34-104) U/L Ammonia (18-72) umol/L Total Creatine Kinase (30-223) U/L Troponin I High Sens (0-20) pg/ml Total Protein (6.0-8.3) gm/dl Albumin (3.4-5.0) gm/dl Globulin (2.5-4.0) gm/dl Albumin/Globulin Ratio (0.9-2) TSH (0.300-4.500) uIu/ml Urine Color Urine Appearance (Clear) Urine pH (4.5-7.5) Ur Specific [place] (1.000-1.030) Urine Protein (Negative) Urine Glucose (UA) (Negative) Urine Ketones (Negative) Urine Blood (Negative) Urine Nitrite (Negative) Urine Bilirubin (Negative) Urine Urobilinogen (Negative) Ur Leukocyte Esterase (Negative) Urine WBC (Auto) (0-5) /hpf Urine RBC (Auto) (0-2) /hpf U Hyaline Cast (Auto) (0-2) /lpf U Epithel Cells (Auto) (0-2) /hpf Urine Bacteria (Auto) (None Seen) Granular Casts (None Prsent) /lpf Urine Opiates Screen (Neg) Ur Methadone, Qual (Neg) Urine Fentanyl Screen (Neg) Urine Barbiturates (Neg) Ur Phencyclidine (PCP) (Neg) U Amphetamin/Meth Scrn (Neg) MDMA (Ecstasy) Screen (Neg) U Benzodiazepines Scrn (Neg) Ur Cocaine Metabolite (Neg) U Marijuana (THC) Screen (Neg) Ethyl Alcohol mg/dL (<10.0) mg/dl Administered Medications Insulin Human Regular 250 (units/ Sodium Chloride) 250 mls @ 7.6 mls/hr IV .Q24H [facility]; Protocol Stop: 07/19/24 11:29 Last Titration: 06/19/24 14:19 Dose: 7.6 units/hr, 7.6 mls/hr Documented By: HUANG Co-signed By: MALACHI Titration: 06/19/24 13:14 Dose: 7.6 units/hr, 7.6 mls/hr Documented By: HUANG Co-signed By: MALACHI Admin: 06/19/24 12:14 Dose: 7.6 units/hr, 7.6 mls/hr Documented By: HUANG Co-signed By: KULDEEP Propofol (Diprivan) 1,000 mg in 100 mls @ 9.192 mls/hr IV .[id number] [facility]; Protocol Stop: 06/22/24 13:44 Last Admin: 06/19/24 13:23 Dose: 50 mcg/kg/min, 23 mls/hr Documented By: HUANG Discontinued Medications Fentanyl Citrate (Fentanyl Citrate Pf 100 Mcg/2 Ml Vial) Confirm Administered Dose 100 mcg .ROUTE .STK-MED ONE Stop: 06/19/24 13:21 Last Admin: 06/19/24 13:56 Dose: Not Given Documented By: HUANG Fentanyl Citrate (Fentanyl Citrate Pf 100 Mcg/2 Ml Vial) 100 mcg IV NOW STA Stop: 06/19/24 13:44 Last Admin: 06/19/24 13:25 Dose: 100 mcg Documented By: HUANG Sodium Chloride (Nss) 1,000 mls @ 999 mls/hr IV .Q1H1M ONE Stop: 06/19/24 11:59 Last Infusion: 06/19/24 12:31 Dose: Infused Documented By: Admin: 06/19/24 11:09 Dose: 999 mls/hr Documented By: CC Sodium Chloride (Nss) 1,000 mls @ 999 mls/hr IV .Q1H1M ONE Stop: 06/19/24 12:15 Last Infusion: 06/19/24 12:26 Dose: Infused Documented By: Admin: 06/19/24 11:20 Dose: 999 mls/hr Documented By: CC Cefepime HCl (Maxipime 2000mg) 2,000 mg in 20 mls @ 5 mls/min IV NOW STA; Protocol Stop: 06/19/24 11:24 Last Admin: 06/19/24 11:28 Dose: 5 mls/min Documented By: CC Sodium Chloride (Nss) 500 mls @ 999 mls/hr IV .Q31M ONE Stop: 06/19/24 12:41 Last Infusion: 06/19/24 12:31 Dose: Infused Documented By: Admin: 06/19/24 12:24 Dose: 999 mls/hr Documented By: HUANG Thiamine HCl 500 mg/ Sodium (Chloride) 55 mls @ 210 mls/hr IV ONE ONE Stop: 06/19/24 12:45 Last Infusion: 06/19/24 13:27 Dose: 0 mls/hr Documented By: Admin: 06/19/24 13:18 Dose: 210 mls/hr Documented By: HUANG Folic Acid 1 mg/ Syringe 10 mls @ 5 mls/min IV ONE ONE Stop: 06/19/24 12:31 Last Admin: 06/19/24 12:51 Dose: 5 mls/min Documented By: HUANG Parenteral Electrolytes (Plasma-Lyte A Ph 7.4) 1,000 mls @ 999 mls/hr IV .Q1H1M ONE Stop: 06/19/24 13:33 Last Admin: 06/19/24 12:27 Dose: 999 mls/hr Documented By: HUANG Parenteral Electrolytes (Plasma-Lyte A Ph 7.4) 500 mls @ 999 mls/hr IV .Q31M ONE Stop: 06/19/24 13:03 Last Admin: 06/19/24 12:37 Dose: 999 mls/hr Documented By: HAUNG Insulin Aspart (Insulin Aspart Per Unit Charge) 0 units SC ACHS PERNELL Stop: 07/19/24 11:29 Last Admin: 06/19/24 13:26 Dose: Not Given Documented By: HUANG Co-signed By: MALACHI Insulin Human Regular (Novolin-R Bolus From Bag) 7.6 units IV ONE ONE Stop: 06/19/24 11:31 Last Admin: 06/19/24 12:14 Dose: 7.6 units Documented By: HUANG Co-signed By: KULDEEP Lidocaine HCl (Lidocaine 2% Jelly 5 Ml Tube) Confirm Administered Dose 5 ml EXT .STK-MED ONE Stop: 06/19/24 11:14 Last Admin: 06/19/24 11:20 Dose: Not Given Documented By: MALACHI Lidocaine HCl (Lidocaine 2% Jelly 5 Ml Tube) 5 ml EXT NOW ONE Stop: 06/19/24 11:16 Last Admin: 06/19/24 11:19 Dose: 5 ml Documented By: MALACHI Greenecellaneous (Stat Iv Infusion Titration Per Protocol) 1 each N/A NOW STA Stop: 06/19/24 11:26 Last Admin: 06/19/24 12:17 Dose: Not Given Documented By: HUANG [place] (Dka Goal Range 150-250 Mg/Dl) 1 each N/A ONE ONE Stop: 06/19/24 11:26 Last Admin: 06/19/24 14:00 Dose: Not Given Documented By: HUANG [place] (Stat Iv Infusion Titration Per Protocol) 1 each N/A NOW STA Stop: 06/19/24 13:32 Last Admin: 06/19/24 13:57 Dose: Not Given Documented By: HUANG Propofol (Propofol Iv Emulsion 10 Mg/Ml 100 Ml Vial) Confirm Administered Dose 1,000 mg IV .STK-MED ONE Stop: 06/19/24 12:54 Last Admin: 06/19/24 13:56 Dose: Not Given Documented By: HUANG Propofol (Propofol Iv Emulsion 10 Mg/Ml 20 Ml Vial) 20 mg IV NOW STA Stop: 06/19/24 13:43 Last Admin: 06/19/24 13:22 Dose: 20 mg Documented By: HUANG Co-signed By: MALACHI Sodium Bicarbonate (Sodium Bicarb 8.4% Inj 50 Meq/50 Ml Syr) Confirm Administered Dose 100 meq IV .STK-MED ONE Stop: 06/19/24 11:06 Last Admin: 06/19/24 11:09 Dose: Not Given Documented By: CC Sodium Bicarbonate (Sodium Bicarb 8.4% Inj 50 Meq/50 Ml Syr) 100 meq IV NOW STA Stop: 06/19/24 11:06 Last Admin: 06/19/24 11:08 Dose: 100 meq Documented By: CC Imaging Data Radiologist's Impression: Chest X-Ray 06/19/24 10:59 XR chest 1V portable CLINICAL HISTORY: sob COMPARISON STUDY: None FINDINGS: Single view semierect portable chest demonstrates no acute cardiopulmonary process. There is no evidence of pneumonia or pleural effusion. There is no pneumothorax or atelectasis. There are vague nodular opacities projected over the right upper lobe. Consider chest CT the appropriate clinical context. Heart size and pulmonary vascularity are unremarkable. IMPRESSION: Vague right upper lobe nodularity. Consider chest CT correlation. ACT 112: Negative or not required by law. Electronically signed by: Brandy Moise M.D. 06/19/2024 11:[address] 06/19/24 11:38 CT OF THE HEAD WITHOUT CONTRAST CLINICAL HISTORY: Altered mental status. Syncope. COMPARISON STUDY: No previous studies for comparison. CT DOSE: 1250.21 mGy.cm TECHNIQUE: Helical axial images of the head were obtained without IV contrast. Automated exposure control was utilized for the study. A dose lowering technique was utilized adhering to the principles of ALARA. FINDINGS: This exam is mildly compromised by motion artifact. No acute intracranial hemorrhage, midline shift or mass effect is present. The ventricular system is unremarkable. The basal cisterns are patent. No extra- axial collections are present. There are no findings to suggest acute dural sinus thrombosis or acute territorial infarct. No significant calvarial abnormalities are present. Visualized portions of the sinuses and mastoid air cells are clear. IMPRESSION: No acute intracranial findings. Exam mildly compromised by motion artifact. ACT 112: Negative or not required by law. Electronically signed by: Won Max M.D. 06/19/2024 12:20 PM Chest X-Ray 06/19/24 13:50 XR chest 1V portable CLINICAL HISTORY: ET tube placement COMPARISON STUDY: Portable chest same date FINDINGS: An endotracheal tube is been inserted and the tip is approximately 5 there is no pneumothorax or pulmonary infiltrate. There is no pleural effusion. The vague nodular densities in the right upper lobe are persistent. Cm above the neha. IMPRESSION: Endotracheal tube tip approximately 5 cm above the neha. ACT 112: Negative or not required by law. Electronically signed by: Brandy Moise M.D. 06/19/2024 2:06 PM Discharge Plan Visit Data Chief Complaint: Syncope Stated Complaint: SYNCOPE, DIABETIC, ASTHMA, DEHYDRATED, LOW SUGAR ED Provider: Ricardo Sahu Discharge Problem: Altered mental status, Influenza A, Dehydration, DKA (diabetic ketoacidosis), Acute hyperkalemia, Hyperammonemia, Lactic acidosis, Fall Patient Disposition: Admitted As Inpatient Condition: Serious Discharge Problem: Altered mental status Qualifiers: Altered mental status type: stupor Qualified Code(s): R40.1 - Stupor DKA (diabetic ketoacidosis) Qualifiers: Diabetes mellitus type: type 2 Diabetes mellitus complication detail: with coma Qualified Code(s): E11.11 - Type 2 diabetes mellitus with ketoacidosis with coma Fall Qualifiers: Encounter type: initial encounter Qualified Code(s): W19.XXXA - Unspecified fall, initial encounter
[2024-06-19] MEDS: THIAMINE HCL 500 MG in SODIUM CHLORIDE 0.9% 50 ML IV ONE (13:18)
[2024-06-19 13:20] LABS: iSTAT Arterial Blood Gas HCO3 6 meg/L (19-24); iSTAT Arterial Blood Gas pCO2 45 mmHg (35-46); iSTAT Arterial Blood Gas pH 6.76 (7.35-7.45); iSTAT Arterial Blood Gas pO2 68 mmHg (80-95); iSTAT Carbon Dioxide 8 mmol/L (24-31); iSTAT Hematocrit 35 % (42-52); iSTAT Hemoglobin 11.9 g/dl (14.0-18.0); iSTAT Potassium 4.7 mmol/L (3.3-5.0); iSTAT Sample Type Arterial; iSTAT Sodium 127 mmol/L (135-144)
[2024-06-19] MEDS: PROPOFOL IV EMULSION 10 MG/ML 20 ML VIAL IV STA (13:22)
[2024-06-19] MEDS: propofoL 1,000 MG/100 ML VIAL IV SCH (13:23)
[2024-06-19] MEDS: fentaNYL citrate PF 100 MCG/2 ML VIAL IV STA (13:25)
[2024-06-19] MEDS: INSULIN ASPART PER UNIT CHARGE SC SCH (13:26)
[2024-06-19] MEDS ORDERED: PROPOFOL BOLUS FROM BAG IV PRN (13:31)
--- NOTE | 2024-06-19 13:48 | Critical Care Consultation ---
Date of Consultation June 19, 2024 Assessment & Plan (1) Lactic acidosis: Reason Critically Ill: 49-year-old male significant DKA at high risk for acute alcohol withdraw PLAN: Neuro: Acute encephalopathy: Likely metabolic -Propofol fentanyl for sedation Resp: Possible pneumonia -Sputum specimen sent CV: Tachycardia -Compensatory Fluids/Renal: High gap metabolic acidosis related to underlying diabetic ketoacidosis -Aggressive volume repletion Acute kidney injury ID: Possible pneumonia -Cefepime GI/Nutrition: N.p.o. Heme:Leukocytosis Suspect reactionary DVT prophylaxis: Heparin 5000 every 8 Endocrine: ICU hyperglycemia protocol Diabetic ketoacidosis -Insulin drip Vascular access: Peripheral IV Code Status: Full code Disposition: ICU (2) DKA (diabetic ketoacidosis): (3) Influenza A: (4) Alcohol use disorder: (5) Alcohol dependence: Supervising Physician Co-Signing Physician Notes I have personally spent 70 minutes of critical care time in the direct management of this patient. This is a life/limb threatening event. This includes time spent evaluating patient, direct bedside care, chart review, placing orders, interpretation of diagnostic studies, discussion with consultants, patient, and/or family members regarding treatment decisions, as well as other required patient management activities. This time is exclusive of all separately billable procedures, and teaching time and separate from and in addition to any other critical care service time. History of Present Illness Reason for Consultation: Diabetic ketoacidosis acute encephalopathy History of Present Illness Patient is a 49-year-old male who is reported to be a type II diabetic whose had several days of feeling unwell, he also has a history of heavy alcohol use per family and friend reports. Patient brought to the emergency department today an d found to be significantly acidotic. He was also profoundly encephalopathic and not able to follow commands. It is estimated that he has not consumed alcohol in 2 days since feeling ill. Given significant encephalopathy decision was made to intubate the patient for airway protection and sedative administration. Allergies Allergy/AdvReac Type Severity Reaction Status Date / Time No Known Allergies Allergy Verified 09/28/23 11:33 Home Medications Medication Instructions Recorded Confirmed Type multivitamin 1 tab PO QAM 06/08/22 06/19/24 History blood-glucose sensor (FreeStyle #2 ea 12/31/23 12/31/23 Rx Valeri 3 Sensor device) albuterol sulfate 90 mcg/actuation 1 puff inhalation DIRECTED PRN 06/19/24 06/19/24 History aerosol inhaler sob atorvastatin 10 mg tablet 10 mg PO UD 06/19/24 06/19/24 History azithromycin 250 mg tablet 250 mg PO DIRECTED 06/19/24 06/19/24 History semaglutide 0.25 mg or 0.5 mg (2 0.5 mg subcut UD 06/19/24 06/19/24 History mg/3 mL) subcutaneous pen injector (Ozempic) valacyclovir 500 mg tablet 500 mg PO UD PRN Outbreak 06/19/24 06/19/24 History Patient History Medical History Alcohol use disorder DM type 2 (diabetes mellitus, type 2) Suspected sleep apnea History of gastroesophageal reflux (GERD) denies current issues. Surgical History History of wisdom tooth extraction History of ankle surgery Rt Family History Mother Benign breast neoplasm Breast cancer Father Heart disease Grandfather (Paternal) Myocardial infarction Other No family history of adverse response to anesthesia Denies family history of Ovarian cancer Prostate cancer Diabetes Lung cancer Colorectal cancer Stroke Social History Smoking Status: Never smoker Tobacco Type: Cigarettes Age Started Using Tobacco: 14; Age Quit Using Tobacco: 45; Second Hand Exposure: No; Do You Dip or Chew Tobacco: No; Hx Alcohol Use: Yes Alcohol type: beer, wine and hard liquor Alcohol Intake Frequency: 4 or More x per/Week Hx Substance Use: Yes Last Used Substance: Days (ago) Preferred Language: Honduran Communication Ability: Effective Visual Impairment: No Limitations Hearing Ability: Normal Rifle Case Repairer Required: No Beliefs That Will Affect Care: None marital status: Single Current Living Situation: Significant Other and Other Current Living Situation Comment: room mate current occupational status: employed current occupation: [employer] ([employer]) How many Children do You have: 0 Feels Safe at Home: Yes Childhood Exposure to Second-Hand Smoke: Yes Diet: diabetic and regular caffeine: Yes Dental Care, Regularly: No Physical Activity Frequency: Does not Exercise Seatbelt Use: always Sunscreen Use: Yes Assistive Devices: None Physical Exam Physical Exam: General: Glascow Coma Scale: Eyes: 3, Verbal 2, Motor 5, Total 10 Skin: Warm, dry, Head: Atraumatic Ears, nose, mouth and throat: Dry lips Cardiovascular: Normal peripheral perfusion Respiratory: Rhonchi bilaterally Gastrointestinal: Non distended Musculoskeletal: No deformity Results & Data Results & Data Vital Signs (Past 12 Hours) Vital Signs Pulse Resp BP Pulse Ox O2 Del Method 06/19/24 11:20 93 H 06/19/24 10:58 94 H 23 120/71 97 Room Air Critical Care Results & Data Vital Signs (Past 12 Hours) Vital Signs Temp Pulse Pulse Resp BP BP Pulse Ox 06/19/24 16:10 24 06/19/24 15:43 84 28 H 97 06/19/24 15:15 76 22 100 06/19/24 15:13 93/56 L 06/19/24 15:13 06/19/24 15:13 33.8 C L 82 17 93/56 L 100 06/19/24 15:12 82 18 98 06/19/24 14:40 83/57 L 06/19/24 14:36 87 28 H 96 06/19/24 14:35 82/59 L 06/19/24 14:31 33.4 C L 06/19/24 14:30 85 19 97 06/19/24 14:30 89/59 L 06/19/24 14:21 88 23 97 06/19/24 14:20 06/19/24 14:20 89/56 L 06/19/24 14:09 89 26 H 98 06/19/24 14:06 88 27 H 99 06/19/24 14:05 92/49 L 06/19/24 13:51 91 H 19 100 06/19/24 13:50 91/59 L 06/19/24 13:48 90 28 H 100 06/19/24 13:45 88/58 L 06/19/24 13:40 87/58 L 06/19/24 13:36 92 H 99 06/19/24 13:35 82/57 L 06/19/24 13:30 82/59 L 06/19/24 13:25 91 H 27 H 99 06/19/24 13:25 96/55 L 06/19/24 13:20 99/58 L 06/19/24 13:18 93 H 24 100 06/19/24 13:15 95/69 L 06/19/24 13:06 94 H 22 87 L 06/19/24 13:05 87/63 L 06/19/24 13:03 89 24 87 L 06/19/24 13:00 90 26 H 86 L 06/19/24 13:00 101/57 L 06/19/24 12:55 94/72 L 06/19/24 12:51 90 26 H 92 06/19/24 12:50 98/55 L 06/19/24 12:39 90 46 H 90 06/19/24 12:35 99/63 L 06/19/24 12:33 91 H 25 H 91 06/19/24 12:30 99/67 L 06/19/24 12:24 90 24 92 06/19/24 12:21 88 26 H 94 06/19/24 11:45 102/60 06/19/24 11:45 88 24 06/19/24 11:42 90 18 85 L 06/19/24 11:40 99/57 L 06/19/24 11:39 91 H 24 84 L 06/19/24 11:36 94 H 23 06/19/24 11:35 102/61 06/19/24 11:30 92/65 L 06/19/24 11:27 95/58 L 06/19/24 11:27 96 H 19 91 06/19/24 11:20 105/58 L 06/19/24 11:20 93 H 06/19/24 10:58 94 H 23 120/71 97 O2 Del Method O2 Flow Rate FiO2 06/19/24 16:10 30 06/19/24 15:43 30 06/19/24 15:15 Mechanical Vent 06/19/24 15:13 06/19/24 15:13 Mechanical Vent 30 06/19/24 15:13 Mechanical Vent 30 06/19/24 15:12 Mechanical Vent 06/19/24 14:40 06/19/24 14:36 Mechanical Vent 06/19/24 14:35 06/19/24 14:31 06/19/24 14:30 Mechanical Vent 06/19/24 14:30 06/19/24 14:21 Mechanical Vent 06/19/24 14:20 Mechanical Vent 06/19/24 14:20 06/19/24 14:09 Mechanical Vent 06/19/24 14:06 Mechanical Vent 06/19/24 14:05 06/19/24 13:51 Mechanical Vent 06/19/24 13:50 06/19/24 13:48 Mechanical Vent 06/19/24 13:45 06/19/24 13:40 06/19/24 13:36 Mechanical Vent 06/19/24 13:35 06/19/24 13:30 06/19/24 13:25 70 06/19/24 13:25 06/19/24 13:20 06/19/24 13:18 Oxymask 06/19/24 13:15 06/19/24 13:06 Room Air 06/19/24 13:05 06/19/24 13:03 Room Air 06/19/24 13:00 Room Air 06/19/24 13:00 06/19/24 12:55 06/19/24 12:51 Room Air 06/19/24 12:50 06/19/24 12:39 Room Air 06/19/24 12:35 06/19/24 12:33 Room Air 06/19/24 12:30 06/19/24 12:24 Nasal Cannula 2 06/19/24 12:21 Nasal Cannula 2 06/19/24 11:45 06/19/24 11:45 06/19/24 11:42 Room Air 06/19/24 11:40 06/19/24 11:39 Room Air 06/19/24 11:36 06/19/24 11:35 06/19/24 11:30 06/19/24 11:27 06/19/24 11:27 Room Air 06/19/24 11:20 06/19/24 11:20 06/19/24 10:58 Room Air Lab & Micro Results (Past 24 Hours) RBC 4.71 M/uL (4.70-6.10) 06/19/24 WBC 24.99 K/ul (4.8-10.8) H 06/19/24 Hgb 14.7 g/dl (14.0-18.0) 06/19/24 Hct 45.3 % (42.0-52.0) 06/19/24 MCV 96.2 fL (80.0-100.0) 06/19/24 MCH 31.2 pg (25.0-34.0) 06/19/24 MCHC 32.5 g/dL (32.0-36.0) 06/19/24 RDW Standard Deviation 43.9 fL (36.4-46.3) 06/19/24 RDW Coefficient of Variation 12.3 % (11.5-14.5) 06/19/24 Plt Count 348 K/uL (130-400) 06/19/24 MPV 9.5 fL (9.4-12.4) 06/19/24 Neutrophils (%) (Auto) 76.0 % 06/19/24 Lymphocytes (%) (Auto) 7.5 % 06/19/24 Monocytes # (Auto) 2.96 K/uL (0.11-0.59) H 06/19/24 Eosinophils # (Auto) 0.01 K/uL (0.00-0.50) 06/19/24 Immature Granulocyte % (Auto) 4.6 % 06/19/24 Neutrophils # (Auto) 18.97 K/uL (1.40-6.50) H 06/19/24 Lymphocytes # (Auto) 1.87 K/uL (1.20-3.40) 06/19/24 Monocytes # (Auto) 2.96 K/uL (0.11-0.59) H 06/19/24 Eosinophils # (Auto) 0.01 K/uL (0.00-0.50) 06/19/24 Basophils # (Auto) 0.02 K/uL (0.00-0.20) 06/19/24 Immature Granulocyte # (Auto) 1.16 K/uL (0.01-0.20) H 06/19 Na 127 mmol/L (136-145) L 06/19/24 K 4.0 mmol/L (3.5-5.1) 06/19/24 Cl 90 mmol/L (98-107) L 06/19/24 CO2 11 mmol/L (21-32) L 06/19/24 Anion Gap 26 (3-11) H 06/19/24 BUN 53 mg/dl (6-23) H 06/19/24 Creatinine 2.43 mg/dl (0.6-1.4) H 06/19/24 BUN/Creatinine Ratio 21.8 (10-20) H 06/19/24 Glu 792 mg/dl (70-99(Fasting)) H* 06/19/24 Ca 7.3 mg/dl (8.6-10.3) L 06/19/24 Phosphorus Level 5.4 mg/dl (2.5-4.9) H 06/19/24 Total Bilirubin 0.4 mg/dl (0.2-1.0) 06/19/24 AST 131 U/L (13-39) H 06/19/24 ALT 72 U/L (7-52) H 06/19/24 Alkaline Phosphatase 157 U/L (34-104) H 06/19/24 TP 8.2 gm/dl (6.0-8.3) 06/19/24 Albumin 4.1 gm/dl (3.4-5.0) 06/19/24 Globulin 4.1 gm/dl (2.5-4.0) H 06/19/24 Albumin/Globulin Ratio 1.0 (0.9-2) 06/19/24 Mg 3.9 mg/dl (1.7-2.4) H 06/19/24 11:00 Calcium Level 7.3 mg/dl (8.6-10.3) L 06/19/24 15:25 Prothromb Time International Ratio 1.1 (0.9-1.1) 06/19/24 11:0 0 Venous Blood pH 7.07 (7.36-7.41) L 06/19/24 16:33 Venous Blood Partial Pressure CO2 32 mmHg (38-50) L 06/19/24 16 :33 Venous Blood Partial Pressure O2 42 mmHg 06/19/24 16:33 Venous Blood HCO3 9 mmol/L 06/19/24 16:33 Venous Blood Base Excess -19.8 mEq/L 06/19/24 16:33 Venous Blood Oxygen Saturation 78.7 % 06/19/24 16:33 Diagnostic Findings (Past 24 Hours) Chest X-Ray 06/19/24 10:59 XR chest 1V portable CLINICAL HISTORY: sob COMPARISON STUDY: None FINDINGS: Single view semierect portable chest demonstrates no acute cardiopulmonary process. There is no evidence of pneumonia or pleural effusion. There is no pneumothorax or atelectasis. There are vague nodular opacities projected over the right upper lobe. Consider chest CT the appropriate clinical context. Heart size and pulmonary vascularity are unremarkable. IMPRESSION: Vague right upper lobe nodularity. Consider chest CT correlation. ACT 112: Negative or not required by law. Electronically signed by: Brandy Moise M.D. 06/19/2024 11:[address] 06/19/24 11:38 CT OF THE HEAD WITHOUT CONTRAST CLINICAL HISTORY: Altered mental status. Syncope. COMPARISON STUDY: No previous studies for comparison. CT DOSE: 1250.21 mGy.cm TECHNIQUE: Helical axial images of the head were obtained without IV contrast. Automated exposure control was utilized for the study. A dose lowering technique was utilized adhering to the principles of ALARA. FINDINGS: This exam is mildly compromised by motion artifact. No acute intracranial hemorrhage, midline shift or mass effect is present. The ve ntricular system is unremarkable. The basal cisterns are patent. No extra-axial collections are present. There are no findings to suggest acute dural sinus thrombosis or acute territorial infarct. No significant calvarial abnormalities are present. Visualized portions of the sinuses and mastoid air cells are clear. IMPRESSION: No acute intracranial findings. Exam mildly compromised by motion artifact. ACT 112: Negative or not required by law. Electronically signed by: Won Max M.D. 06/19/2024 12:20 PM Chest X-Ray 06/19/24 13:50 XR chest 1V portable CLINICAL HISTORY: ET tube placement COMPARISON STUDY: Portable chest same date FINDINGS: An endotracheal tube is been inserted and the tip is approximately 5 there is no pneumothorax or pulmonary infiltrate. There is no pleural effusion. The vague nodular densities in the right upper lobe are persistent. Cm above the neha. IMPRESSION: Endotracheal tube tip approximately 5 cm above the neha. ACT 112: Negative or not required by law. Electronically signed by: Brandy Moise M.D. 06/19/2024 2:06 PM I & O Totals 24 Hours 06/18/24 06/19/24 06/20/24 06:59 06:59 06:59 Intake Total 2831.510 / 2831.510 Output Total 1200 / 1200 Balance 1631.510 / 1631.510 Cumulative 06/19/24 10:54 thru 06/19/24 16:40 Intake Total 2831.510 Output Total 1200 Balance 1631.510 RT Ventilator Mngmt (Last Documented) Ventilator Ordered Settings Ventilator Support Mode Assist Control 06/19/24 16:10 Respiratory Rate 24 06/19/24 16:10 Ventilator Tidal Volume 600 06/19/24 16:10 Setting Minute Ventilation 12.1 06/19/24 15:43 Positive End Expiratory 5 06/19/24 16:10 Pressure Fraction of Inspired Oxygen 30 06/19/24 16:10 Machine Comment settings adjusted per 06/19/24 16:10 Forest Ventilator - PT Measurements Respiratory Rate 24 Exhaled Tidal Volume 548 Minute Ventilation 12.1 Peak Inspiratory Airway 34 Pressure Plateau Pressure 19.6 Respiratory Cycle Inspiratory: 1:3.2 Expiratory Ratio Inspiratory Phase Time 0.60 End-Tidal CO2 16 Static Lung Compliance 37.53 Dynamic Lung Compliance 18.90 Normal Static Lung Compliance 45.00 Patient Measurements Comment RT assisted Dr. Garg w/ intubation at this time. ETT 8.0mm placed 26cm@lip by Dr. Garg. Placement confirmed w/ +EzCAP color change, B/S present equal bilaterally, no sounds heard over stomach. Pt placed on vent settings per Dr. Garg. CXR and ABG pending. Moderate amount of creamy fernandez secretions suctioned from airway. Sputum sample collected per Dr. Garg. Coding Level of Care Code 90743 CRITICAL CARE 1ST 30-74M Diagnoses Lactic acidosis E87.20 DKA (diabetic ketoacidosis) E11.11 Diabetes mellitus complication detail: with coma Diabetes mellitus type: type 2 Influenza A J10.1 Alcohol use disorder F19.90 Alcohol dependence F10.20 (2) DKA (diabetic ketoacidosis) Diabetes mellitus complication detail: with coma Diabetes mellitus type: type 2 Qualified Code(s): E11.11 - Type 2 diabetes mellitus with ketoacidosis with coma
--- NOTE | 2024-06-19 13:51 | Billing Data ---
Date of Service June 19, 2024 Coding Level of Care Code 43619 CRITICAL CARE
[2024-06-19] MEDS: PROPOFOL IV EMULSION 10 MG/ML 100 ML VIAL IV ONE (13:56)
[2024-06-19] MEDS: fentaNYL citrate PF 100 MCG/2 ML VIAL ONE (13:56)
[2024-06-19] MEDS: DKA GOAL RANGE 150-250 mg/dl ONE (14:00)
[2024-06-19 14:05] LABS: iSTAT Arterial Blood Gas HCO3 10 meg/L (19-24); iSTAT Arterial Blood Gas pCO2 46 mmHg (35-46); iSTAT Arterial Blood Gas pH 6.94 (7.35-7.45); iSTAT Arterial Blood Gas pO2 397 mmHg (80-95); iSTAT Carbon Dioxide 11 mmol/L (24-31); iSTAT Hematocrit 37 % (42-52); iSTAT Hemoglobin 12.6 g/dl (14.0-18.0); iSTAT Sample Type Arterial; iSTAT Sodium 128 mmol/L (135-144)
--- NOTE | 2024-06-19 14:08 | XRay Report ---
XR chest 1V portable CLINICAL HISTORY: ET tube placement COMPARISON STUDY: Portable chest same date FINDINGS: An endotracheal tube is been inserted and the tip is approximately 5 there is no pneumothor ax or pulmonary infiltrate. There is no pleural effusion. The vague nodular densities in the right up per lobe are persistent. Cm above the neha. IMPRESSION: Endotracheal tube tip approximately 5 cm above the neha. ACT 112: Negative or not required by law. Electronically signed by: Brandy Moise M.D. 06/19/2024 2:06 PM
[2024-06-19 14:48] LABS: iSTAT Arterial Blood Gas HCO3 10 meg/L (19-24); iSTAT Arterial Blood Gas pCO2 47 mmHg (35-46); iSTAT Arterial Blood Gas pH 6.94 (7.35-7.45); iSTAT Arterial Blood Gas pO2 44 mmHg (80-95); iSTAT Carbon Dioxide 11 mmol/L (24-31); iSTAT Hematocrit 35 % (42-52); iSTAT Hemoglobin 11.9 g/dl (14.0-18.0); iSTAT Potassium 4.1 mmol/L (3.3-5.0); iSTAT Sample Type VEN; iSTAT Sodium 129 mmol/L (135-144)
[2024-06-19] MEDS ORDERED: STAT IV Infusion **Titration per Protocol STA (15:33)
[2024-06-19] MEDS ORDERED: fentaNYL BOLUS from BAG IV PRN (15:33)
[2024-06-19] MEDS: SODIUM CHLOR 0.45% + 20MEQ KCL 20 MEQ/1,000 ML BAG IV SCH (15:49)
[2024-06-19] MEDS: fentaNYL citrate 2,500 MCG/250 ML BAG IV SCH (16:13)
[2024-06-19] MEDS ORDERED: SODIUM BICARB 8.4% INJ 50 MEQ/50 ML SYR IV STA (16:22)
[2024-06-19 16:31] LABS: BUN Creatinine Ratio 21.8 (10-20); Calcium 7.3 mg/dl (8.6-10.3); Creatinine Clr Calc Pharmacy 39.4 ml/min; Phosphorus 5.4 mg/dl (2.5-4.9)
[2024-06-19 16:48] LABS: Base Excess VBG -19.8 mEq/L; HCO3 VBG 9 mmol/L; Oxygen Saturation VBG 78.7 %; PCO2 VBG 32 mmHg (38-50); PO2 VBG 42 mmHg; pH VBG 7.07 (7.36-7.41)
[2024-06-19] MEDS: PENDING D5 1/2NS+20mEq KCL IVF SCH (17:49)
[2024-06-19] MEDS: RAPID SEQUENCE INDUCTION BAG ONE (17:49)
[2024-06-19 20:28] LABS: Anion Gap 24 (3-11); BUN Creatinine Ratio 23.6 (10-20); Blood Urea Nitrogen 59 mg/dl (6-23); Calcium 7.6 mg/dl (8.6-10.3); Carbon Dioxide 13 mmol/L (21-32); Chloride 94 mmol/L (98-107); Creatinine Clr Calc Pharmacy 38.3 ml/min; Glucose 672 mg/dl (70-99(Fasting)); Phosphorus < 1.0 mg/dl (2.5-4.9); Potassium 3.6 mmol/L (3.5-5.1); Sodium 131 mmol/L (136-145)
[2024-06-19] MEDS: PLASMA-LYTE A 1,000 ML IV SCH (20:43)
[2024-06-19] MEDS ORDERED: POTASSIUM PHOS 3 MMOL/1 ML INFUSION IV STA (20:44)
[2024-06-19] MEDS: POTASSIUM PHOSPHATE 18 MMOL in SODIUM CHLORIDE 0.9% 500 ML IV ONE (21:49)
[2024-06-19] MEDS: CEFEPIME 2000MG 2,000 MG/20 ML SYR IV SCH (21:49)
[2024-06-19] MEDS: HEPARIN SOD 5,000 UNIT/0.5 ML VIAL SQ SCH (21:59)
[2024-06-19] MEDS: POTASSIUM CHLORIDE 20 MEQ/15 ML UDC PO STA (22:38)
[2024-06-20] MEDS: Nursing to Pharmacy Communication SCH (00:11)
[2024-06-20 00:12] LABS: Base Excess VBG -7.1 mEq/L; HCO3 VBG 16 mmol/L; Oxygen Saturation VBG 96.5 %; PCO2 VBG 27 mmHg (38-50); PO2 VBG 67 mmHg; pH VBG 7.39 (7.36-7.41)
[2024-06-20 00:25] LABS: Anion Gap 15 (3-11); Blood Urea Nitrogen 60 mg/dl (6-23); Calcium 7.5 mg/dl (8.6-10.3); Carbon Dioxide 18 mmol/L (21-32); Chloride 100 mmol/L (98-107); Creatinine Clr Calc Pharmacy 35.1 ml/min; Glucose 491 mg/dl (70-99(Fasting)); Phosphorus < 1.0 mg/dl (2.5-4.9); Potassium 3.3 mmol/L (3.5-5.1); Sodium 133 mmol/L (136-145)
[2024-06-20] MEDS: POTASSIUM CHLORIDE / WTR 10 MEQ/100 ML PLCT IV SCH ×2 (00:41→06:19)
[2024-06-20] MEDS: POTASSIUM CHLORIDE 20 MEQ/15 ML UDC PO STA (00:41)
--- NOTE | 2024-06-20 01:22 | XRay Report ---
EXAM: XR KUB/Abdomen 1 view CLINICAL HISTORY: eval placement of OGT TECHNIQUE: X-ray images of the abdomen were obtained in supine position. COMPARISON: No prior studies available for comparison. FINDINGS: A nasogastric tube is noted, passing via the esophagus to the gastric region.The fenestra and tip are in good position. Gas Pattern: Gas pattern within the abdomen is normal. No evidence of bowel obstruction or distention. Soft Tissues: Soft tissues of the abdomen appear normal without evidence of masses or calcifications. Liver, spleen, and kidneys are of normal size and position. IMPRESSION: 1. A nasogastric tube is in place. 2. No acute abnormalities identified. Electronically signed by Keith Walters 06-20-2024 01:22 AM
[2024-06-20 04:54] LABS: Prothrombin Time 10.9 Seconds (9.0-12.0)
[2024-06-20 05:07] LABS: Anion Gap 7 (3-11); BUN Creatinine Ratio 20.1 (10-20); Blood Urea Nitrogen 61 mg/dl (6-23); Calcium 7.9 mg/dl (8.6-10.3); Carbon Dioxide 21 mmol/L (21-32); Chloride 107 mmol/L (98-107); Creatinine Clr Calc Pharmacy 31.6 ml/min; Glucose 269 mg/dl (70-99(Fasting)); Potassium 3.9 mmol/L (3.5-5.1); Sodium 135 mmol/L (136-145)
[2024-06-20 05:14] LABS: Bilirubin Direct 0.1 mg/dl (0-0.2); Bilirubin,Total 0.4 mg/dl (0.2-1.0); Total Protein 5.8 gm/dl (6.0-8.3)
[2024-06-20] MEDS ORDERED: Nursing to Pharmacy Communication SCH (05:15)
[2024-06-20 05:17] LABS: Phosphorus < 1.0 mg/dl (2.5-4.9)
[2024-06-20] MEDS ORDERED: SODIUM PHOSPHATE 3 MMOL/1 ML INFUSION IV STA (05:25)
[2024-06-20] MEDS: D5W AND 1/2NSS + 20MEQ KCL 20 MEQ/1,000 ML BAG IV SCH (05:27)
[2024-06-20 06:00] LABS: Magnesium 2.4 mg/dl (1.7-2.4)
[2024-06-20] MEDS: SODIUM PHOSPHATE 21 MMOL in SODIUM CHLORIDE 0.9% 500 ML IV ONE (06:20)
[2024-06-20 07:18] LABS: Hematocrit (blood only) 33.5 % (42.0-52.0); Hemoglobin 12.5 g/dl (14.0-18.0); Mean Corpuscular Hemoglobin 30.9 pg (25.0-34.0); Mean Corpuscular Hgb Conc 37.3 g/dL (32.0-36.0); Mean Corpuscular Volume 82.7 fL (80.0-100.0); Mean Platelet Volume 9.6 fL (9.4-12.4); Platelet Count 183 K/uL (130-400); RDW Standard Deviation 36.7 fL (36.4-46.3); Red Blood Count 4.05 M/uL (4.70-6.10); White Blood Count 9.68 K/ul (4.8-10.8)
[2024-06-20 07:24] LABS: Basophils # (auto) 0.03 K/uL (0.00-0.20); Basophils % (auto) 0.3 %; Echinocytes 2+; Immature Granulocytes # (auto) 0.48 K/uL (0.01-0.20); Lymphocytes # (auto) 0.51 K/uL (1.20-3.40); Lymphocytes % (auto) 5.3 %; Monocytes # (auto) 1.14 K/uL (0.11-0.59); Monocytes % (auto) 11.8 %; Neutrophils # (auto) 7.52 K/uL (1.40-6.50); Neutrophils % (auto) 77.6 %
[2024-06-20 08:18] LABS: Anion Gap 6 (3-11); BUN Creatinine Ratio 18.5 (10-20); Blood Urea Nitrogen 60 mg/dl (6-23); Calcium 7.9 mg/dl (8.6-10.3); Carbon Dioxide 23 mmol/L (21-32); Chloride 109 mmol/L (98-107); Creatinine Clr Calc Pharmacy 30.7 ml/min; Glucose 139 mg/dl (70-99(Fasting)); Potassium 4.1 mmol/L (3.5-5.1); Sodium 138 mmol/L (136-145)
[2024-06-20 08:20] LABS: Phosphorus < 1.0 mg/dl (2.5-4.9)
[2024-06-20 08:42] LABS: Estimated Average Glucose 217 mg/dl; Hemoglobin A1C 9.2 % (4.5-5.6)
--- NOTE | 2024-06-20 10:04 | Critical Care Progress Note ---
Date of Service June 20, 2024 Assessment & Plan (1) Lactic acidosis: Plan: Reason Critically Ill: 49-year-old male significant DKA at high risk for acute alcohol withdraw PLAN: Neuro: Acute encephalopathy: Likely metabolic -Improved mentation, able to follow simple commands At risk for acute alcohol withdraw -Empiric/high risk Ativan: Continue alcohol withdrawal severity scoring Resp: Possible pneumonia -Sputum specimen sent -At risk for aspiration pneumonia given altered mentation history of alcoholism -Unasyn and azithromycin Patient liberated from ventilator this morning CV: Tachycardia -Compensatory Fluids/Renal: High gap metabolic acidosis: Resolved -Aggressive volume repletion Acute kidney injury: Worsening: Adequate urine output -Obtaining renal ultrasound: Unremarkable sonographic appearance of kidneys ID: Possible pneumonia -Unasyn and Zithromax GI/Nutrition: N.p.o. -Bedside swallow did not pass coughing attempts with drinking fluids will obtain speech consult Heme:Leukocytosis Suspect reactionary DVT prophylaxis: Heparin 5000 every 8 Endocrine: ICU hyperglycemia protocol Diabetic ketoacidosis: Resolved -Transition to subcutaneous insulin Vascular access: Peripheral IV Code Status: Full code Disposition: ICU (2) DKA (diabetic ketoacidosis): (3) Influenza A: (4) Alcohol use disorder: (5) Alcohol dependence: Admission and Anticipated Discharge Date Admission Date: June 19, 2024 Subjective No overnight events. Significant improvement in blood glucoses Physical Exam Physical Exam: General: Glascow Coma Scale: Eyes: 4, Verbal 1T, Motor 6, Total 10T: Following simple commands Skin: Warm, dry, Head: Atraumatic Ears, nose, mouth and throat: Moist mucous membranes Cardiovascular: Normal peripheral perfusion Respiratory: Rhonchi bilaterally Gastrointestinal: Non distended Musculoskeletal: No deformity Results & Data Results & Data Vital Signs (Past 12 Hours) Vital Signs Temp Pulse Resp BP Pulse Ox Pulse Ox O2 Del Method 06/20/24 09:03 37.4 C 108 H 19 97 Nasal Cannula 06/20/24 09:00 111/68 06/20/24 08:54 37.4 C 108 H 19 97 06/20/24 08:30 120/75 06/20/24 08:24 37.6 C H 110 H 21 97 06/20/24 08:00 124/65 06/20/24 08:00 37.7 C H 114 H 24 96 Nasal Cannula 06/20/24 08:00 110 H 06/20/24 07:23 110 H 21 95 06/20/24 07:00 06/20/24 07:00 37.7 C H 110 H 20 95 Mechanical Vent 06/20/24 06:36 37.7 C H 111 H 20 95 06/20/24 06:30 116/64 06/20/24 06:27 37.8 C H 110 H 20 96 06/20/24 06:15 37.8 C H 111 H 20 95 06/20/24 06:06 37.8 C H 112 H 20 96 06/20/24 06:00 117/66 06/20/24 06:00 117/66 06/20/24 05:42 37.8 C H 110 H 22 96 06/20/24 05:30 116/66 06/20/24 05:30 37.8 C H 108 H 20 95 06/20/24 05:15 37.8 C H 110 H 22 95 06/20/24 05:12 37.8 C H 110 H 23 95 06/20/24 05:00 106/68 06/20/24 04:48 37.8 C H 110 H 20 96 06/20/24 04:45 37.8 C H 112 H 20 96 06/20/24 04:21 37.8 C H 111 H 20 95 06/20/24 04:08 20 06/20/24 04:00 116/65 06/20/24 04:00 116/65 06/20/24 04:00 06/20/24 04:00 96 06/20/24 03:45 37.8 C H 111 H 20 95 06/20/24 03:30 116/71 06/20/24 03:30 37.8 C H 111 H 20 95 06/20/24 03:15 37.8 C H 111 H 20 95 06/20/24 03:06 37.8 C H 112 H 20 96 06/20/24 03:00 115/72 06/20/24 02:51 37.8 C H 112 H 20 95 06/20/24 02:45 37.8 C H 112 H 20 95 06/20/24 02:30 37.8 C H 113 H 20 94 06/20/24 02:30 116/73 06/20/24 02:00 114/70 06/20/24 02:00 114/70 06/20/24 02:00 37.8 C H 113 H 21 06/20/24 01:45 37.8 C H 116 H 21 94 06/20/24 01:33 37.8 C H 115 H 21 95 06/20/24 01:30 122/69 06/20/24 01:30 122/69 06/20/24 01:30 122/69 06/20/24 01:09 37.8 C H 114 H 21 95 06/20/24 01:06 37.8 C H 113 H 21 95 06/20/24 01:00 124/73 06/20/24 01:00 124/73 06/20/24 01:00 124/73 06/20/24 00:54 37.8 C H 110 H 21 95 06/20/24 00:45 37.8 C H 109 H 21 95 06/20/24 00:42 21 06/20/24 00:33 37.8 C H 108 H 21 96 06/20/24 00:30 114/75 06/20/24 00:30 114/75 06/20/24 00:27 37.8 C H 108 H 21 96 06/20/24 00:21 37.8 C H 110 H 24 97 06/20/24 00:10 24 06/20/24 00:00 06/20/24 00:00 96 06/20/24 00:00 109 H 06/19/24 23:51 37.7 C H 110 H 24 96 06/19/24 23:30 116/69 06/19/24 23:30 116/69 06/19/24 23:30 37.7 C H 108 H 24 06/19/24 23:24 37.6 C H 109 H 26 H 97 06/19/24 23:00 37.8 C H 109 H 24 95 06/19/24 23:00 115/70 06/19/24 22:57 37.8 C H 110 H 24 97 06/19/24 22:30 37.9 C H 113 H 24 06/19/24 22:30 113/69 06/19/24 22:30 113/69 06/19/24 22:06 37.9 C H 113 H 24 96 O2 Del Method O2 Flow Rate FiO2 06/20/24 09:03 2 06/20/24 09:00 06/20/24 08:54 06/20/24 08:30 06/20/24 08:24 06/20/24 08:00 06/20/24 08:00 2 06/20/24 08:00 06/20/24 07:23 35 06/20/24 07:00 30 06/20/24 07:00 30 06/20/24 06:36 06/20/24 06:30 06/20/24 06:27 06/20/24 06:15 06/20/24 06:06 06/20/24 06:00 06/20/24 06:00 06/20/24 05:42 06/20/24 05:30 06/20/24 05:30 06/20/24 05:15 06/20/24 05:12 06/20/24 05:00 06/20/24 04:48 06/20/24 04:45 06/20/24 04:21 06/20/24 04:08 30 06/20/24 04:00 06/20/24 04:00 06/20/24 04:00 30 06/20/24 04:00 Mechanical Vent 06/20/24 03:45 06/20/24 03:30 06/20/24 03:30 06/20/24 03:15 06/20/24 03:06 06/20/24 03:00 06/20/24 02:51 06/20/24 02:45 06/20/24 02:30 06/20/24 02:30 06/20/24 02:00 06/20/24 02:00 06/20/24 02:00 06/20/24 01:45 06/20/24 01:33 06/20/24 01:30 06/20/24 01:30 06/20/24 01:30 06/20/24 01:09 06/20/24 01:06 06/20/24 01:00 06/20/24 01:00 06/20/24 01:00 06/20/24 00:54 06/20/24 00:45 06/20/24 00:42 06/20/24 00:33 06/20/24 00:30 06/20/24 00:30 06/20/24 00:27 06/20/24 00:21 06/20/24 00:10 30 06/20/24 00:00 30 06/20/24 00:00 Mechanical Vent 06/20/24 00:00 06/19/24 23:51 06/19/24 23:30 06/19/24 23:30 06/19/24 23:30 06/19/24 23:24 06/19/24 23:00 06/19/24 23:00 06/19/24 22:57 06/19/24 22:30 06/19/24 22:30 06/19/24 22:30 06/19/24 22:06 Critical Care Results & Data Vital Signs (Past 12 Hours) Vital Signs Temp Pulse Resp BP Pulse Ox Pulse Ox Pulse Ox 06/20/24 12:06 37.4 C 100 H 16 100 06/20/24 12:00 99 06/20/24 12:00 118/82 06/20/24 12:00 118/82 06/20/24 11:48 37.4 C 105 H 21 99 06/20/24 11:00 111/79 06/20/24 11:00 111/79 06/20/24 11:00 37.3 C 105 H 24 97 06/20/24 10:57 123/77 06/20/24 10:48 37.4 C 105 H 21 99 06/20/24 10:06 37.4 C 106 H 21 97 06/20/24 09:30 122/69 06/20/24 09:21 37.3 C 107 H 21 98 06/20/24 09:03 37.4 C 108 H 19 97 06/20/24 09:00 111/68 06/20/24 08:54 37.4 C 108 H 19 97 06/20/24 08:30 06/20/24 08:30 120/75 06/20/24 08:24 37.6 C H 110 H 21 97 06/20/24 08:00 99 06/20/24 08:00 124/65 06/20/24 08:00 37.7 C H 114 H 24 96 06/20/24 08:00 110 H 06/20/24 07:23 110 H 21 95 06/20/24 07:00 06/20/24 07:00 37.7 C H 110 H 20 95 06/20/24 06:36 37.7 C H 111 H 20 95 02/18/25 06:30 116/64 06/20/24 06:27 37.8 C H 110 H 20 96 06/20/24 06:15 37.8 C H 111 H 20 95 06/20/24 06:06 37.8 C H 112 H 20 96 06/20/24 06:00 117/66 06/20/24 06:00 117/66 06/20/24 05:42 37.8 C H 110 H 22 96 06/20/24 05:30 116/66 06/20/24 05:30 37.8 C H 108 H 20 95 06/20/24 05:15 37.8 C H 110 H 22 95 06/20/24 05:12 37.8 C H 110 H 23 95 06/20/24 05:00 106/68 06/20/24 04:48 37.8 C H 110 H 20 96 06/20/24 04:45 37.8 C H 112 H 20 96 06/20/24 04:21 37.8 C H 111 H 20 95 06/20/24 04:08 20 06/20/24 04:00 116/65 06/20/24 04:00 116/65 06/20/24 04:00 06/20/24 04:00 96 06/20/24 03:45 37.8 C H 111 H 20 95 06/20/24 03:30 116/71 06/20/24 03:30 37.8 C H 111 H 20 95 06/20/24 03:15 37.8 C H 111 H 20 95 06/20/24 03:06 37.8 C H 112 H 20 96 06/20/24 03:00 115/72 06/20/24 02:51 37.8 C H 112 H 20 95 06/20/24 02:45 37.8 C H 112 H 20 95 06/20/24 02:30 37.8 C H 113 H 20 94 06/20/24 02:30 116/73 06/20/24 02:00 114/70 06/20/24 02:00 114/70 06/20/24 02:00 37.8 C H 113 H 21 06/20/24 01:45 37.8 C H 116 H 21 94 06/20/24 01:33 37.8 C H 115 H 21 95 06/20/24 01:30 122/69 06/20/24 01:30 122/69 06/20/24 01:30 122/69 O2 Del Method O2 Del Method O2 Del Method O2 Flow Rate FiO2 06/20/24 12:06 Nasal Cannula 2 06/20/24 12:00 Nasal Cannula 06/20/24 12:00 06/20/24 12:00 06/20/24 11:48 06/20/24 11:00 06/20/24 11:00 06/20/24 11:00 06/20/24 10:57 06/20/24 10:48 06/20/24 10:06 06/20/24 09:30 06/20/24 09:21 06/20/24 09:03 Nasal Cannula 2 06/20/24 09:00 06/20/24 08:54 06/20/24 08:30 Nasal Cannula 2 06/20/24 08:30 06/20/24 08:24 06/20/24 08:00 Nasal Cannula 06/20/24 08:00 06/20/24 08:00 Nasal Cannula 2 06/20/24 08:00 06/20/24 07:23 35 06/20/24 07:00 30 06/20/24 07:00 Mechanical Vent 30 06/20/24 06:36 06/20/24 06:30 06/20/24 06:27 06/20/24 06:15 06/20/24 06:06 06/20/24 06:00 06/20/24 06:00 06/20/24 05:42 06/20/24 05:30 06/20/24 05:30 06/20/24 05:15 06/20/24 05:12 06/20/24 05:00 06/20/24 04:48 06/20/24 04:45 06/20/24 04:21 06/20/24 04:08 30 06/20/24 04:00 06/20/24 04:00 06/20/24 04:00 30 06/20/24 04:00 Mechanical Vent 06/20/24 03:45 06/20/24 03:30 06/20/24 03:30 06/20/24 03:15 06/20/24 03:06 06/20/24 03:00 06/20/24 02:51 06/20/24 02:45 06/20/24 02:30 06/20/24 02:30 06/20/24 02:00 06/20/24 02:00 06/20/24 02:00 06/20/24 01:45 06/20/24 01:33 06/20/24 01:30 06/20/24 01:30 06/20/24 01:30 Lab & Micro Results (Past 24 Hours) RBC 4.05 M/uL (4.70-6.10) L 06/20/24 WBC 9.68 K/ul (4.8-10.8) 06/20/24 Hgb 12.5 g/dl (14.0-18.0) L 06/20/24 Hct 33.5 % (42.0-52.0) L 06/20/24 MCV 82.7 fL (80.0-100.0) 06/20/24 MCH 30.9 pg (25.0-34.0) 06/20/24 MCHC 37.3 g/dL (32.0-36.0) H 06/20/24 RDW Standard Deviation 36.7 fL (36.4-46.3) 06/20/24 RDW Coefficient of Variation 12.0 % (11.5-14.5) 06/20/24 Plt Count 183 K/uL (130-400) 06/20/24 MPV 9.6 fL (9.4-12.4) 06/20/24 Neutrophils (%) (Auto) 77.6 % 06/20/24 Lymphocytes (%) (Auto) 5.3 % 06/20/24 Monocytes # (Auto) 1.14 K/uL (0.11-0.59) H 06/20/24 Eosinophils # (Auto) 0.00 K/uL (0.00-0.50) 06/20/24 Immature Granulocyte % (Auto) 5.0 % 06/20/24 Neutrophils # (Auto) 7.52 K/uL (1.40-6.50) H 06/20/24 Lymphocytes # (Auto) 0.51 K/uL (1.20-3.40) L 06/20/24 Monocytes # (Auto) 1.14 K/uL (0.11-0.59) H 06/20/24 Eosinophils # (Auto) 0.00 K/uL (0.00-0.50) 06/20/24 Basophils # (Auto) 0.03 K/uL (0.00-0.20) 06/20/24 Immature Granulocyte # (Auto) 0.48 K/uL (0.01-0.20) H 06/20 Echinocytes 2+ 06/20/24 Na 138 mmol/L (136-145) 06/20/24 K 4.8 mmol/L (3.5-5.1) 06/20/24 Cl 107 mmol/L (98-107) 06/20/24 CO2 20 mmol/L (21-32) L 06/20/24 Anion Gap 11 (3-11) 06/20/24 BUN 62 mg/dl (6-23) H 06/20/24 Creatinine 3.38 mg/dl (0.6-1.4) H 06/20/24 BUN/Creatinine Ratio 18.3 (10-20) 06/20/24 Glu 183 mg/dl (70-99(Fasting)) H 06/20/24 Ca 7.9 mg/dl (8.6-10.3) L 06/20/24 Phosphorus Level < 1.0 mg/dl (2.5-4.9) L* 06/20/24 Total Bilirubin 0.4 mg/dl (0.2-1.0) 06/20/24 Direct Bilirubin 0.1 mg/dl (0-0.2) 06/20/24 AST 73 U/L (13-39) H 06/20/24 ALT 56 U/L (7-52) H 06/20/24 Alkaline Phosphatase 95 U/L (34-104) 06/20/24 TP 5.8 gm/dl (6.0-8.3) L 06/20/24 Albumin 3.0 gm/dl (3.4-5.0) L 06/20/24 Mg 2.4 mg/dl (1.7-2.4) 06/20/24 04:15 Calcium Level 7.9 mg/dl (8.6-10.3) L 06/20/24 10:26 Prothromb Time International Ratio 1.0 (0.9-1.1) 06/20/24 04:1 5 Venous Blood pH 7.34 (7.36-7.41) L 06/20/24 07:28 Venous Blood Partial Pressure CO2 27 mmHg (38-50) L 06/20/24 00 :03 Venous Blood Partial Pressure O2 67 mmHg 06/20/24 00:03 Venous Blood HCO3 16 mmol/L 06/20/24 00:03 Venous Blood Base Excess -7.1 mEq/L 06/20/24 00:03 Venous Blood Oxygen Saturation 96.5 % 06/20/24 00:03 Microbiology 06/19/24 11:27 Aerobic Blood Culture - Preliminary Blood No growth in Aerobic bottle after 24 hours. Anaerobic Blood Culture - Preliminary No growth in Anaerobic bottle after 24 hours. 06/19/24 11:27 Aerobic Blood Culture - Preliminary Blood No growth in Aerobic bottle after 24 hours. Anaerobic Blood Culture - Preliminary No growth in Anaerobic bottle after 24 hours. 06/19/24 13:40 Gram Stain - Final Sputum,Vent Suction Sputum Culture - Preliminary Pin-point growth present, reincubating. Diagnostic Findings (Past 24 Hours) Chest X-Ray 06/19/24 13:50 XR chest 1V portable CLINICAL HISTORY: ET tube placement COMPARISON STUDY: Portable chest same date FINDINGS: An endotracheal tube is been inserted and the tip is approximately 5 there is no pneumothorax or pulmonary infiltrate. There is no pleural effusion. The vague nodular densities in the right upper lobe are persistent. Cm above the neha. IMPRESSION: Endotracheal tube tip approximately 5 cm above the neha. ACT 112: Negative or not required by law. Electronically signed by: Brandy Moise M.D. 06/19/2024 2:06 PM KUB X-Ray 06/20/24 00:29 EXAM: XR KUB/Abdomen 1 view CLINICAL HISTORY: eval placement of OGT TECHNIQUE: X-ray images of the abdomen were obtained in supine position. COMPARISON: No prior studies available for comparison. FINDINGS: A nasogastric tube is noted, passing via the esophagus to the gastric region.The fenestra and tip are in good position. Gas Pattern: Gas pattern within the abdomen is normal. No evidence of bowel obstruction or distention. Soft Tissues: Soft tissues of the abdomen appear normal without evidence of masses or calcifications. Liver, spleen, and kidneys are of normal size and position. IMPRESSION: 1. A nasogastric tube is in place. 2. No acute abnormalities identified. Electronically signed by Keith Walters 06-20-2024 01:22 AM Renal Ultrasound 06/20/24 10:03 RENAL ULTRASOUND CLINICAL HISTORY: Acute kidney injury. COMPARISON STUDY: None. TECHNIQUE: Sonography of the kidneys and the urinary bladder was performed. FINDINGS: The right kidney measures 11.3 x 5.2 x 5.9 cm and the left kidney measures 13.6 x 5.9 x 6.5 cm. Renal size, cortical thickness and echogenicity are normal. There is no hydronephrosis. The bladder is collapsed, containing a Mims. IMPRESSION: Unremarkable sonographic appearance of the kidneys. No hydronephrosis. ACT 112: Negative or not required by law. Electronically signed by: Won Max M.D. 06/20/2024 12:43 PM I & O Totals 24 Hours 06/19/24 06/20/24 06/21/24 06:59 06:59 06:59 Intake Total 7202.678 / 7202.678 1618.030 / 1618.030 Output Total 1979 / 1979 225 / 225 Balance 5222.678 / 5222.678 1393.030 / 1393.030 Cumulative 06/19/24 10:54 thru 06/20/24 12:27 Intake Total 8820.708 Output Total 2205 Balance 6615.708 RT Ventilator Mngmt (Last Documented) Ventilator Ordered Settings Ventilator Support Mode CPAP 06/20/24 07:23 Respiratory Rate 16 06/20/24 12:06 Ventilator Tidal Volume 400 06/20/24 07:00 Setting Minute Ventilation 8.2 06/20/24 07:23 Ventilator Positive Pressure 5 06/19/24 20:00 Support Setting Positive End Expiratory 5 06/20/24 07:23 Pressure Fraction of Inspired Oxygen 2 06/20/24 08:30 Machine Comment Vt and RR changed 06/20/24 00:42 Ventilator - PT Measurements Respiratory Rate 16 Exhaled Tidal Volume 385 Minute Ventilation 8.2 Peak Inspiratory Airway 7 Pressure Mean Airway Pressure 20 Plateau Pressure 15 Respiratory Cycle Inspiratory: 1:4.0 Expiratory Ratio Inspiratory Phase Time 0.6 End-Tidal CO2 39 Static Lung Compliance 50.40 Dynamic Lung Compliance 192.50 Normal Static Lung Compliance 50.00 Patient Measurements Comment RT assisted Dr. Garg w/ intubation at this time. ETT 8.0mm placed 26cm@lip by Dr. Garg. Placement confirmed w/ +EzCAP color change, B/S present equal bilaterally, no sounds heard over stomach. Pt placed on vent settings per Dr. Garg. CXR and ABG pending. Moderate amount of creamy fernandez secretions suctioned from airway. Sputum sample collected per Dr. Garg. Coding Level of Care Code 18976 SUB INP/OBS CARE 3/50MIN Diagnoses Lactic acidosis E87.20 DKA (diabetic ketoacidosis) E11.11 Diabetes mellitus complication detail: with coma Diabetes mellitus type: type 2 Influenza A J10.1 Alcohol use disorder F19.90 Alcohol dependence F10.20 (2) DKA (diabetic ketoacidosis) Diabetes mellitus complication detail: with coma Diabetes mellitus type: type 2 Qualified Code(s): E11.11 - Type 2 diabetes mellitus with ketoacidosis with coma
[2024-06-20] MEDS: PLASMA-LYTE A 1,000 ML IV SCH (10:51)
[2024-06-20] MEDS: LANTUS PER UNIT CHARGE SC STA (10:53)
[2024-06-20] MEDS: FOLIC ACID 1 MG TAB PO SCH (11:01)
[2024-06-20] MEDS: THIAMINE HCL 100 MG TAB PO SCH (11:01)
[2024-06-20] MEDS: MULTIVITAMIN TAB PO SCH (11:01)
[2024-06-20 11:11] LABS: BUN Creatinine Ratio 18.3 (10-20); Calcium 7.9 mg/dl (8.6-10.3); Creatinine Clr Calc Pharmacy 29.5 ml/min; Potassium 4.8 mmol/L (3.5-5.1)
[2024-06-20] MEDS ORDERED: GLUCOSE 40% GEL 15 GM TUBE PO PRN (11:15)
[2024-06-20] MEDS ORDERED: CARBOHYDRATES FOR HYPOGLYCEMIA PO PRN (11:15)
[2024-06-20] MEDS ORDERED: GLUCAGON FOR INJ 1 MG VIAL SQ PRN (11:15)
[2024-06-20] MEDS ORDERED: GLUCOSE 10 TAB/TUBE PO PRN (11:15)
[2024-06-20] MEDS ORDERED: DEXTROSE 50% 50 ML SYRINGE IV PRN (11:15)
--- NOTE | 2024-06-20 11:29 | Pharmacy Report ---
Pharmacy Glycemic Short Note 2 - Date of Service June 20, 2024 - Glycemic Short BSG Results (Last 24 hours): 06/19/24 06/19/24 06/19/24 11:00 11:27 13:20 Glucose 1018 H* 1008 H* POC Glucose > 600 H* 06/19/24 06/19/24 06/19/24 14:00 15:14 15:25 Glucose 829 H* POC Glucose > 600 H* > 600 H* 06/19/24 06/19/24 06/19/24 16:20 16:33 17:22 Glucose 792 H* POC Glucose > 600 H* > 600 H* 06/19/24 06/19/24 06/19/24 17:34 19:15 19:39 Glucose 756 H* 672 H* POC Glucose > 600 H* 06/19/24 06/19/24 06/19/24 21:06 22:32 22:51 Glucose 615 H* POC Glucose 529 H* 482 H* 06/19/24 06/19/24 06/20/24 23:22 23:50 00:48 Glucose 491 H* POC Glucose 461 H* 468 H* 06/20/24 06/20/24 06/20/24 01:48 02:54 04:01 Glucose POC Glucose 376 H* 340 H* 277 H 06/20/24 06/20/24 06/20/24 04:15 04:59 07:10 Glucose 269 H POC Glucose 236 H 152 H 06/20/24 06/20/24 06/20/24 07:28 07:55 09:01 Glucose 139 H POC Glucose 124 H 119 H 06/20/24 06/20/24 06/20/24 09:55 10:26 11:00 Glucose 183 H POC Glucose 137 H 186 H OUTPATIENT ANTIDIABETIC REGIMEN: * Semaglutide 0.5 mg SC weekly (per provider note- patient has not taken in many months * Insulin- no fill history/med rec available but per RN possibly takes 70/30. Provider note indicates patient had been rationing for several weeks due to cost * A1c: 9.2% 06/20/24 ASSESSMENT: * 49 yo male with T2DM presenting with respiratory failure in the setting of influenza A, JAMES, and HHS (noncompliance with home regimen). Patient also at risk for alcohol withdrawal as typically drinks ~8 alcoholic drinks a day and last drink was 2 days prior to admission. * Patient was intubated upon and admission but was successfully extubated this morning. Patient is still somewhat lethargic/confused per RN and has not yet been cleared for PO intake due to aspiration concerns. * Insulin infusion was started on admission and continued at very high rates (~18 units/hr) overnight. BSGs downtrended this morning and at that time, the insulin infusion and dextrose containing fluids were held per protocol. Plan was discussed on multidisciplinary rounds and as AG and CO2 normalized, will attempt to fully transition off the drip and start basal/bolus insulin. I anticipate this transition could be challenging given previously very high d rip rate requirements prior to d/c, unknown outpatient insulin needs, and tenuous NPO status. Will utilize weight based/moderate stress dosing as a conservative starting point. PLAN FOR INPATIENT GLYCEMIC CONTROL: * Hold outpatient oral diabetes medications * Basal insulin * Lantus 13 units SQ X 1 this morning * Lantus scale this evening based on BS,7,13 units * Bolus insulin * NovoLog per scale ACHS or Q4hrs while NPO * Goal Range: Low 110 mg/dL - High 140 mg/dL * Correction Factor: 25 mg/dL/unit * Nutritional / Prandial insulin per carb ratio of 1 unit per 10 grams CHO consumed
[2024-06-20] MEDS ORDERED: INSULIN ASPART PER UNIT CHARGE SC SCH (11:30)
[2024-06-20] MEDS: INSULIN ASPART PER UNIT CHARGE SC SCH (12:21)
--- NOTE | 2024-06-20 12:44 | Ultrasound Report ---
RENAL ULTRASOUND CLINICAL HISTORY: Acute kidney injury. COMPARISON STUDY: None. TECHNIQUE: Sonography of the kidneys and the urinary bladder was performed. FINDINGS: The right kidney measures 11.3 x 5.2 x 5.9 cm and the left kidney measures 13.6 x 5.9 x 6.5 cm. Renal size, cortical thickness and echogenicity are normal. There is no hydronephrosis. The blad elmer is collapsed, containing a Mims. IMPRESSION: Unremarkable sonographic appearance of the kidneys. No hydronephrosis. ACT 112: Negative or not required by law. Electronically signed by: Won Max M.D. 06/20/2024 12:43 PM
--- NOTE | 2024-06-20 13:03 | Procedure Note ---
Procedure Note Date of Service June 19, 2024 Procedure Date: Noted above Procedure: Endotracheal intubation Pre-procedure Diagnosis: Altered mental status, possible/probable aspiration, respiratory insufficiency Post-procedure Diagnosis: same as above Prior to Procedure: Informed Consent: emergent, discussed with patient's mother at bedside understanding risks and benefits verbal consent given Attending Staff: Marion Garg DO The identity of the patient was confirmed and a bedside time out was performed. Description of Procedure: Patient was evaluated and required intubation for impending respiratory failure. The patient was prepared in the usual fashion. A video laryngoscope was used. A 8 mm inner diameter endotrachial tube was placed endotracheally to 26 cm at the teeth. A grade 1 view was obtained. The endotracheal tube was noted to pass through the vocal cords. Chest rise was bilateral. Bilateral breath sounds were heard without air sounds in the abdomen. Mist was noted in the endotracheal tube. End-tidal CO2 measurement was positive. Chest x-ray shows proper endotracheal tube placement. Complications: None Findings: Not applicable Specimens: Not applicable Estimated blood loss: Zero [facility] Procedure Codes (Charges) Resuscitation Resuscitation: 66127 Endotracheal Intubation, emergency Coding CPT Codes Resuscitation - Resuscitation: 00988 Endotracheal Intubation, emergency ([id number]) Additional Codes Date of Service ([email or web address])
[2024-06-20] MEDS: INSULIN HUMAN REGULAR PER UNIT 7 UNITS in SYRINGE 7 ML IV ONE (18:05)
[2024-06-20 18:39] LABS: BUN Creatinine Ratio 17.2 (10-20); Calcium 7.8 mg/dl (8.6-10.3); Creatinine Clr Calc Pharmacy 25.3 ml/min; Potassium 4.3 mmol/L (3.5-5.1)
[2024-06-20 19:38] LABS: Magnesium 2.5 mg/dl (1.7-2.4); Phosphorus 2.1 mg/dl (2.5-4.9)
[2024-06-20] MEDS: LANTUS PER UNIT CHARGE SC SCH (20:29)
[2024-06-20] MEDS: LORazepam 2 MG/1 ML VIAL--Active Protocol IV PRN (20:29)
[2024-06-20] MEDS: cefTRIAXone SODIUM 2,000 MG/50 ML BAG IV SCH (22:07)
--- NOTE | 2024-06-20 22:28 | Hospitalist Progress Note ---
Date of Service June 20, 2024 Assessment & Plan (1) DKA (diabetic ketoacidosis): (2) Influenza A: (3) T2DM (type 2 diabetes mellitus): (4) Alcohol use disorder: Plan 49-year-old male with history of type 2 diabetes recently rationing insulin due to cost, alcohol abuse with high risk for withdrawal who presents with acute respiratory failure due to flu A with possible superimposed pneumonia, suspected HHS, and potential early alcohol withdrawal with last drink 2 days prior due to illness. In the ER is profoundly acidotic, was initially observed for improvement following bicarb infusions however likely worsened and with additional concern for alcohol withdrawal, persistent acidosis, and respiratory failure was intubated and admitted to the ICU Acute respiratory failure Influenza A+, suspected superimposed pneumonia -Flu A positive. Tamiflu 75 mg x 1 then 30 twice daily if able to take p.o. or OG -For secondary pneumonia suspected due to x-ray opacities, leukocytosis with left shift cefepime/vancomycin. MRSA nare pending. VBG less than 7/52/52/HCO3 not able to be performed ABG pH 6.7 645/68/6 High risk for respiratory compromise, also with underlying concerns for severe alcohol withdrawal now 2 days out from last drink.Subsequently intubated for respiratory failure Target tidal volume 500, serial gas measurements Received 2 units of push bicarb, additional 3 units were ordered Fluids per [facility] protocol currently on 2 liters. continue cefepime JAMES, prerenal - Baseline creatinine 1.1. Creatinine acutely elevated 2.5 to on admission. Alcohol abuse Hemoglobin 14.7, no evidence of GI bleed. Alcohol is negative on admission Per collateral from family drinks 8 large can alcoholic beverages "hard Mountain Dew "like drinks, when drinking out with friends will drink up to an additional half 5th of liquor, otherwise 1/5 or handle last around a week. No recent alcohol free days High risk for withdrawal Patient subsequently on reevaluation was intubated, switched to propofol for sedation not showing signs of withdrawal currently HHS Type II diabetic, no history of HHS/DKA Insulin gtt. adjust per protocol, goal BSG decrease of no more than around 150-200/h Urine ketones are present, critical metabolic acidosis, pseudohyponatremia, potassium is 5.0 Per last note review patient had been on Ozempic however on talking to family he is not taking this. He switch back to [id number] Novolin 70/30 which he has been rationing out due to cost. anion gap closed. continue aggressive fluids. Right arterial IV stick Patient did have a right AC IV in place during resuscitation. During evaluation and resuscitation was noted to have pulsatile flow. On further evaluation pulsatile flow into syringe was confirmed consistent with serial IV. IV was subsequently removed with pressure applied for 5 minutes and then wrapped in a dressing. Medications discussed repeated through IV or IV fluids 2 doses of bicarb DVT prophylaxis: Heparin due to renal dysfunction Diet: N.p.o. CODE STATUS: Full code. Surrogate decision maker would be patient's mother. He has no spouse or children Disposition: ICU (2) Influenza A: (3) T2DM (type 2 diabetes mellitus): (4) Alcohol use disorder: Admission and Anticipated Discharge Date Admission Date: June 19, 2024 Subjective Patient is lethargic Physical Exam Physical Exam: General: Critically ill-appearing. Somnolent, HEENT: Atraumatic, normocephalic. Pulm: Moderate air movement, Kussmaul breathing. No wheezing or rales Cardiac: Regular, tachycardic Abdominal: Nontender, nondistended, soft. BS present. No contusions Extremities: Dry. No contusions. Results & Data Results & Data Vital Signs (Past 12 Hours) Vital Signs Temp Pulse Resp BP Pulse Ox Pulse Ox O2 Del Method 06/20/24 20:00 06/20/24 19:25 Room Air 06/20/24 19:03 37.6 C H 105 H 22 136/82 96 06/20/24 19:00 136/82 06/20/24 16:03 37.5 C 98 H 24 98 Nasal Cannula 06/20/24 16:00 104 H 06/20/24 16:00 137/79 06/20/24 16:00 137/79 06/20/24 16:00 99 06/20/24 15:57 37.5 C 102 H 24 97 06/20/24 15:00 124/78 06/20/24 15:00 124/78 06/20/24 15:00 37.4 C 101 H 22 100 06/20/24 14:06 37.6 C H 104 H 20 97 06/20/24 13:03 37.5 C 104 H 20 98 06/20/24 13:00 116/81 06/20/24 12:51 37.5 C 101 H 19 97 06/20/24 12:06 37.4 C 100 H 16 100 Nasal Cannula 06/20/24 12:00 99 06/20/24 12:00 118/82 06/20/24 12:00 118/82 06/20/24 11:48 37.4 C 105 H 21 99 06/20/24 11:00 111/79 06/20/24 11:00 111/79 06/20/24 11:00 37.3 C 105 H 24 97 06/20/24 10:57 123/77 06/20/24 10:48 37.4 C 105 H 21 99 O2 Del Method O2 Del Method O2 Flow Rate O2 Flow Rate 06/20/24 20:00 Nasal Cannula 06/20/24 19:25 06/20/24 19:03 06/20/24 19:00 06/20/24 16:03 2 06/20/24 16:00 06/20/24 16:00 06/20/24 16:00 06/20/24 16:00 Nasal Cannula Nasal Cannula 2 06/20/24 15:57 06/20/24 15:00 06/20/24 15:00 06/20/24 15:00 06/20/24 14:06 06/20/24 13:03 06/20/24 13:00 06/20/24 12:51 06/20/24 12:06 2 06/20/24 12:00 Nasal Cannula 06/20/24 12:00 06/20/24 12:00 06/20/24 11:48 06/20/24 11:00 06/20/24 11:00 06/20/24 11:00 06/20/24 10:57 06/20/24 10:48 PG Care Time/CCT Total # of Minutes Spent Total Time Spent with Patient: Total time spent is greater than 50% in coordination of care (as documented) at patient's floor/unit and/or counseling patient: Coding Level of Care Code 77908 SUB INP/OBS CARE 3/50MIN Diagnoses DKA (diabetic ketoacidosis) E11.11 Diabetes mellitus complication detail: with coma Diabetes mellitus type: type 2 Influenza A J10.1 T2DM (type 2 diabetes mellitus) E11.9 Alcohol use disorder F19.90 (1) DKA (diabetic ketoacidosis) Diabetes mellitus complication detail: with coma Diabetes mellitus type: type 2 Qualified Code(s): E11.11 - Type 2 diabetes mellitus with ketoacidosis with coma
[2024-06-21] MEDS: LORazepam 2 MG/1 ML VIAL--Active Protocol IV PRN ×2 (02:18→04:16)
[2024-06-21] MEDS: ACETAMINOPHEN 1,000 MG/100 ML VIAL IV STA (02:35)
[2024-06-21 04:29] LABS: Hematocrit (blood only) 29.6 % (42.0-52.0); Hemoglobin 11.1 g/dl (14.0-18.0); Mean Corpuscular Hemoglobin 31.4 pg (25.0-34.0); Mean Corpuscular Hgb Conc 37.5 g/dL (32.0-36.0); Mean Corpuscular Volume 83.9 fL (80.0-100.0); Mean Platelet Volume 9.3 fL (9.4-12.4); Platelet Count 173 K/uL (130-400); RDW Coefficient of Variation 13.2 % (11.5-14.5); RDW Standard Deviation 40.4 fL (36.4-46.3); Red Blood Count 3.53 M/uL (4.70-6.10); White Blood Count 13.25 K/ul (4.8-10.8)
[2024-06-21 05:13] LABS: ALC (manual) 0.53 K/uL (1.2-3.4); ANC (manual) 12.19 K/uL (1.4-6.5); Dohle Bodies 1+; Echinocytes 1+; Lymphocytes # (manual) 0.53 K/uL (1.2-3.4); Lymphocytes % (manual) 4 %; Monocytes # (manual) 0.53 K/uL (0.11-0.59); Monocytes % (manual) 4 %; Neutrophils # (manual) 12.19 K/uL (1.40-6.50); Neutrophils % (manual) 92 %
[2024-06-21 07:30] LABS: BUN Creatinine Ratio 16.2 (10-20); Calcium 7.9 mg/dl (8.6-10.3); Creatinine Clr Calc Pharmacy 22.2 ml/min; Potassium 3.9 mmol/L (3.5-5.1)
--- NOTE | 2024-06-21 08:05 | XRay Report ---
EXAM: XR chest 1V portable CLINICAL HISTORY: eval lung roger for any opacities/infection TECHNIQUE: An X-ray image of the chest is obtained in AP projection.Not centralized. COMPARISON: Compared to the prior chest x-ray dated 06/19/2024 FINDINGS: Pulmonary Parenchyma: Lungs are infiltrated bilaterally with air spaces shadowing more to the lower lobes and right lung. No evidence of pleural effusion or pleural thickening. Removal of EET Heart and Mediastinum: Heart size and shape are normal. No mediastinal widening or masses. No hilar or mediastinal lymphadenopathy. Bony Thorax: The bony thorax appears intact without fractures or deformities. Soft Tissues: Soft tissues overlying the chest wall are unremarkable. IMPRESSION: - Bilateral air space shadowing suggests clinical assessment.(new) Electronically signed by Keith Walters 06-21-2024 08:05 AM
[2024-06-21] MEDS: LANTUS PER UNIT CHARGE SC SCH ×2 (08:17→20:58)
--- NOTE | 2024-06-21 08:53 | Critical Care Progress Note ---
Date of Service June 21, 2024 Assessment & Plan (1) Lactic acidosis: Plan: Reason Critically Ill: 49-year-old male significant DKA at high risk for acute alcohol withdraw PLAN: Neuro: Acute encephalopathy: Likely metabolic: Recent DKA, influenza A, acute renal failure/azotemia -Improved mentation, now most consistent with hypoactive delirium At risk for acute alcohol withdraw -Empiric/high risk Ativan: Continue alcohol withdrawal severity scoring -Consider phenobarbital Resp: Possible secondary bacterial pneumonia in the setting of influenza A -Sputum specimen sent -At risk for aspiration pneumonia given altered mentation history of alcoholism -Unasyn and azithromycin Patient liberated from ventilator 06/20 CV: Tachycardia: Improved -Compensatory Fluids/Renal: High gap metabolic acidosis: Resolved -Aggressive volume repletion Acute kidney injury: Worsening: Adequate urine output -Unremarkable renal ultrasound -Nephrology consultation ID: Possible pneumonia -Ceftriaxone 5 days for possible community-acquired pneumonia and Zithromax GI/Nutrition: N.p.o. -Bedside swallow did not pass coughing attempts with drinking fluids will obtain speech consult Heme:Leukocytosis Suspect reactionary DVT prophylaxis: Heparin 5000 every 8 Endocrine: ICU hyperglycemia protocol Diabetic ketoacidosis: Resolved -Transition to subcutaneous insulin Vascular access: Peripheral IV Code Status: Full code Disposition: Critical care needs have resolved, stable for downgrade out of ICU status Clinical update: 1300: Increased restlessness but decreased mentation. When I evaluated the patient he had a GCS of Glascow Coma Scale: Eyes: 3, Verbal 2, Motor 5, Total 10. I believe the predominant factor is alcohol withdrawal given hypertension and tachycardia will treat with 1 dose of IV phenobarbital, placing end-tidal CO2 and checking ABG I feel there is compounded encephalopathy secondary to renal dysfunction and azotemia; however, I feel it more appropriate to treat with SHAHIDA channel agonists and closely monitor for oversedation. Patient remains critically ill secondary to requirement of IV sedatives and significant altered mental status cannot exclude delirium tremens. I have personally spent 45 minutes of critical care time in the direct management of this patient. This is a life/limb threatening event. This includes time spent evaluating patient, direct bedside care, chart review, placing orders, interpretation of diagnostic studies, discussion with consultants, patient, and/or family members regarding treatment decisions, as well as other required patient management activities. This time is exclusive of all separately billable procedures, and teaching time and separate from and in addition to any other critical care service time. (2) DKA (diabetic ketoacidosis): (3) Influenza A: (4) Alcohol use disorder: (5) Alcohol dependence: (6) Injury of brachial artery: Plan: Patient had IV placed presumptively by EMS. In emergency department there was an attempt to instill medication into right brachial IV however was immediately recognized that there was significant flashback and it was recognized that the IV was placed in the artery. The IV was removed and pressure held, the patient has not had any evidence of vascular compromise of the right hand. Admission and Anticipated Discharge Date Admission Date: June 19, 2024 Subjective No overnight events Physical Exam Physical Exam: General: Somnolent but arousable. nontoxic. Skin: Warm, dry, Head: Atraumatic Ears, nose, mouth and throat: airway patent Cardiovascular: Normal peripheral perfusion Respiratory: no respiratory distress Gastrointestinal: Non distended Musculoskeletal: No deformity, mild unequal swelling right upper extremity compared to left obtained venous duplex -No evidence of vascular compromise. Results & Data Results & Data Vital Signs (Past 12 Hours) Vital Signs Temp Pulse Pulse Resp BP BP Pulse Ox 06/21/24 08:00 06/21/24 08:00 06/21/24 08:00 96 H 06/21/24 07:00 37.3 C 96 H 18 130/97 98 06/21/24 06:03 37.0 C 96 H 19 106/72 97 06/21/24 05:36 37.1 C 98 H 19 95 06/21/24 05:00 37.4 C 103 H 19 135/85 94 06/21/24 04:39 120/93 06/21/24 04:21 37.7 C H 105 H 24 97 06/21/24 04:00 37.7 C H 105 H 21 119/88 96 06/21/24 04:00 06/21/24 03:03 38.1 C H 109 H 22 129/83 96 06/21/24 02:57 38.2 C H 112 H 26 H 93 06/21/24 02:03 38.2 C H 105 H 22 142/84 H 92 06/21/24 01:57 38.2 C H 107 H 25 H 95 06/21/24 01:15 38.1 C H 106 H 21 133/90 97 06/21/24 00:45 38.1 C H 107 H 22 96 06/21/24 00:03 38.0 C H 106 H 21 136/89 96 06/21/24 00:00 103 H 06/21/24 00:00 06/20/24 23:30 37.8 C H 104 H 25 H 96 06/20/24 23:03 37.8 C H 106 H 22 147/87 H 95 06/20/24 22:57 37.8 C H 107 H 20 95 06/20/24 22:18 37.6 C H 100 H 22 92 06/20/24 21:09 37.6 C H 110 H 20 137/92 92 O2 Del Method O2 Del Method O2 Flow Rate O2 Flow Rate 06/21/24 08:00 Nasal Cannula 2 06/21/24 08:00 Nasal Cannula 06/21/24 08:00 06/21/24 07:00 Nasal Cannula 2 06/21/24 06:03 06/21/24 05:36 06/21/24 05:00 06/21/24 04:39 06/21/24 04:21 06/21/24 04:00 06/21/24 04:00 Nasal Cannula 2 06/21/24 03:03 06/21/24 02:57 06/21/24 02:03 06/21/24 01:57 06/21/24 01:15 06/21/24 00:45 06/21/24 00:03 06/21/24 00:00 06/21/24 00:00 Nasal Cannula 06/20/24 23:30 06/20/24 23:03 06/20/24 22:57 06/20/24 22:18 06/20/24 21:09 Critical Care Results & Data Vital Signs (Past 12 Hours) Vital Signs Temp Pulse Pulse Resp BP BP Pulse Ox 06/21/24 08:00 06/21/24 08:00 06/21/24 08:00 96 H 06/21/24 07:00 37.3 C 96 H 18 130/97 98 06/21/24 06:03 37.0 C 96 H 19 106/72 97 06/21/24 05:36 37.1 C 98 H 19 95 06/21/24 05:00 37.4 C 103 H 19 135/85 94 06/21/24 04:39 120/93 06/21/24 04:21 37.7 C H 105 H 24 97 06/21/24 04:00 37.7 C H 105 H 21 119/88 96 06/21/24 04:00 06/21/24 03:03 38.1 C H 109 H 22 129/83 96 06/21/24 02:57 38.2 C H 112 H 26 H 93 06/21/24 02:03 38.2 C H 105 H 22 142/84 H 92 06/21/24 01:57 38.2 C H 107 H 25 H 95 06/21/24 01:15 38.1 C H 106 H 21 133/90 97 06/21/24 00:45 38.1 C H 107 H 22 96 06/21/24 00:03 38.0 C H 106 H 21 136/89 96 06/21/24 00:00 103 H 06/21/24 00:00 06/20/24 23:30 37.8 C H 104 H 25 H 96 06/20/24 23:03 37.8 C H 106 H 22 147/87 H 95 06/20/24 22:57 37.8 C H 107 H 20 95 06/20/24 22:18 37.6 C H 100 H 22 92 06/20/24 21:09 37.6 C H 110 H 20 137/92 92 O2 Del Method O2 Del Method O2 Flow Rate O2 Flow Rate 06/21/24 08:00 Nasal Cannula 2 06/21/24 08:00 Nasal Cannula 06/21/24 08:00 06/21/24 07:00 Nasal Cannula 2 06/21/24 06:03 06/21/24 05:36 06/21/24 05:00 06/21/24 04:39 06/21/24 04:21 06/21/24 04:00 06/21/24 04:00 Nasal Cannula 2 06/21/24 03:03 06/21/24 02:57 06/21/24 02:03 06/21/24 01:57 06/21/24 01:15 06/21/24 00:45 06/21/24 00:03 06/21/24 00:00 06/21/24 00:00 Nasal Cannula 06/20/24 23:30 06/20/24 23:03 06/20/24 22:57 06/20/24 22:18 06/20/24 21:09 Lab & Micro Results (Past 24 Hours) RBC 3.53 M/uL (4.70-6.10) L 06/21/24 WBC 13.25 K/ul (4.8-10.8) H 06/21/24 Hgb 11.1 g/dl (14.0-18.0) L 06/21/24 Hct 29.6 % (42.0-52.0) L 06/21/24 MCV 83.9 fL (80.0-100.0) 06/21/24 MCH 31.4 pg (25.0-34.0) 06/21/24 MCHC 37.5 g/dL (32.0-36.0) H 06/21/24 RDW Standard Deviation 40.4 fL (36.4-46.3) 06/21/24 RDW Coefficient of Variation 13.2 % (11.5-14.5) 06/21/24 Plt Count 173 K/uL (130-400) 06/21/24 MPV 9.3 fL (9.4-12.4) L 06/21/24 ANC 12.19 K/uL (1.4-6.5) H 06/21/24 ALC 0.53 K/uL (1.2-3.4) L 06/21/24 Neutrophils % (Manual) 92 % 06/21/24 Lymphocytes % (Manual) 4 % 06/21/24 Monocytes % (Manual) 4 % 06/21/24 Neutrophils # (Manual) 12.19 K/uL (1.40-6.50) H 06/21/24 Lymphocytes # (Manual) 0.53 K/uL (1.2-3.4) L 06/21/24 Monocytes # (Manual) 0.53 K/uL (0.11-0.59) 06/21/24 Echinocytes 1+ 06/21/24 Dohle Bodies 1+ 06/21/24 Na 139 mmol/L (136-145) 06/21/24 K 3.9 mmol/L (3.5-5.1) 06/21/24 Cl 109 mmol/L (98-107) H 06/21/24 CO2 25 mmol/L (21-32) 06/21/24 Anion Gap 5 (3-11) 06/21/24 BUN 73 mg/dl (6-23) H 06/21/24 Creatinine 4.50 mg/dl (0.6-1.4) H 06/21/24 BUN/Creatinine Ratio 16.2 (10-20) 06/21/24 Glu 115 mg/dl (70-99(Fasting)) H 06/21/24 Ca 7.9 mg/dl (8.6-10.3) L 06/21/24 Phosphorus Level 3.0 mg/dl (2.5-4.9) 06/21/24 Mg 2.6 mg/dl (1.7-2.4) H 06/21/24 04:17 Calcium Level 7.9 mg/dl (8.6-10.3) L 06/21/24 06:52 Microbiology 06/19/24 13:40 Gram Stain - Final Sputum,Vent Suction Sputum Culture - Preliminary Streptococcus pneumoniae 06/19/24 11:27 Aerobic Blood Culture - Preliminary Blood No growth in Aerobic bottle after 24 hours. Anaerobic Blood Culture - Preliminary No growth in Anaerobic bottle after 24 hours. 06/19/24 11:27 Aerobic Blood Culture - Preliminary Blood No growth in Aerobic bottle after 24 hours. Anaerobic Blood Culture - Preliminary No growth in Anaerobic bottle after 24 hours. Diagnostic Findings (Past 24 Hours) Renal Ultrasound 06/20/24 10:03 RENAL ULTRASOUND CLINICAL HISTORY: Acute kidney injury. COMPARISON STUDY: None. TECHNIQUE: Sonography of the kidneys and the urinary bladder was performed. FINDINGS: The right kidney measures 11.3 x 5.2 x 5.9 cm and the left kidney measures 13.6 x 5.9 x 6.5 cm. Renal size, cortical thickness and echogenicity are normal. There is no hydronephrosis. The bladder is collapsed, containing a Mims. IMPRESSION: Unremarkable sonographic appearance of the kidneys. No hydronephrosis. ACT 112: Negative or not required by law. Electronically signed by: Won Max M.D. 06/20/2024 12:43 PM Chest X-Ray 06/21/24 06:00 EXAM: XR chest 1V portable CLINICAL HISTORY: eval lung roger for any opacities/infection TECHNIQUE: An X-ray image of the chest is obtained in AP projection.Not centralized. COMPARISON: Compared to the prior chest x-ray dated 06/19/2024 FINDINGS: Pulmonary Parenchyma: Lungs are infiltrated bilaterally with air spaces shadowing more to the lower lobes and right lung. No evidence of pleural effusion or pleural thickening. Removal of EET Heart and Mediastinum: Heart size and shape are normal. No mediastinal widening or masses. No hilar or mediastinal lymphadenopathy. Bony Thorax: The bony thorax appears intact without fractures or deformities. Soft Tissues: Soft tissues overlying the chest wall are unremarkable. IMPRESSION: - Bilateral air space shadowing suggests clinical assessment.(new) Electronically signed by Keith Walters 06-21-2024 08:05 AM I & O Totals 24 Hours 06/20/24 06/21/24 06/22/24 06:59 06:59 06:59 Intake Total 7202.678 / 7202.678 2731.363 / 2731.363 1000 / 1000 Output Total 1979 1180 / 1180 125 / 125 Balance 5222.678 / 5222.678 1551.363 / 1551.363 875 / 875 Cumulative 06/19/24 10:54 thru 06/21/24 08:00 Intake Total 50759.041 Output Total 3285 Balance 7649.041 RT Ventilator Mngmt (Last Documented) Ventilator Ordered Settings Ventilator Support Mode CPAP 06/20/24 07:23 Respiratory Rate 18 06/21/24 07:00 Ventilator Tidal Volume 400 06/20/24 07:00 Setting Minute Ventilation 8.2 06/20/24 07:23 Ventilator Positive Pressure 5 06/19/24 20:00 Support Setting Positive End Expiratory 5 06/20/24 07:23 Pressure Fraction of Inspired Oxygen 2 06/20/24 08:30 Machine Comment Vt and RR changed 06/20/24 00:42 Ventilator - PT Measurements Respiratory Rate 18 Exhaled Tidal Volume 385 Minute Ventilation 8.2 Peak Inspiratory Airway 7 Pressure Mean Airway Pressure 20 Plateau Pressure 15 Respiratory Cycle Inspiratory: 1:4.0 Expiratory Ratio Inspiratory Phase Time 0.6 End-Tidal CO2 39 Static Lung Compliance 50.40 Dynamic Lung Compliance 192.50 Normal Static Lung Compliance 50.00 Patient Measurements Comment RT assisted Dr. Garg w/ intubation at this time. ETT 8.0mm placed 26cm@lip by Dr. Garg. Placement confirmed w/ +EzCAP color change, B/S present equal bilaterally, no sounds heard over stomach. Pt placed on vent settings per Dr. Garg. CXR and ABG pending. Moderate amount of creamy fernandez secretions suctioned from airway. Sputum sample collected per Dr. Garg. Coding Level of Care Code 76190 CRITICAL CARE 1ST 30-74M Diagnoses Lactic acidosis E87.20 DKA (diabetic ketoacidosis) E11.11 Diabetes mellitus complication detail: with coma Diabetes mellitus type: type 2 Influenza A J10.1 Alcohol use disorder F19.90 Alcohol dependence F10.20 Injury of right brachial artery, initial encounter S45.101A Encounter type: initial encounter Laterality: right (2) DKA (diabetic ketoacidosis) Diabetes mellitus complication detail: with coma Diabetes mellitus type: type 2 Qualified Code(s): E11.11 - Type 2 diabetes mellitus with ketoacidosis with coma (6) Injury of brachial artery Encounter type: initial encounter Laterality: right Qualified Code(s): S45.101A - Unspecified injury of brachial artery, right side, initial encounter
--- NOTE | 2024-06-21 09:22 | Ultrasound Report ---
ULTRASOUND RIGHT UPPER EXTREMITY VENOUS CLINICAL HISTORY: Right upper extremity swelling. COMPARISON STUDY: None. TECHNIQUE: Real-time, grayscale, and color Doppler sonography of the deep veins of the right upper ex tremity is performed. Compression and augmentation were utilized. FINDINGS: The major deep venous channels in the right upper extremity are patent. There is no product luh process identified. There is no intraluminal filling defects. IMPRESSION: No evidence of right upper extremity DVT. ACT 112: Negative or not required by law. Electronically signed by: Brandy Moise M.D. 06/21/2024 9:20 AM
--- NOTE | 2024-06-21 10:35 | Nephrology Consultation ---
Date of Consultation June 21, 2024 Assessment & Plan (1) Acute kidney injury: (2) Altered mental status: (3) DKA (diabetic ketoacidosis): (4) Dehydration: (5) Alcohol use disorder: (6) Metabolic acidosis: (7) Proteinuria: Plan 49-year-old gentleman with baseline normal kidney function, baseline creatinine 1.1 mg/dl, history of poorly controlled type 2 diabetes and alcohol dependence, admitted with altered mental status, DKA, volume depletion, JAMES and multiple electrolyte abnormality. Urinalysis with proteinuria, glycosuria and 3+ ketone. No hematuria or UTI. Renal ultrasound otherwise unremarkable. Has been nonoliguric. Was profoundly hypotensive on admission requiring pressor support but blood pressure improved. On admission notable lab was notable for JAMES, creatinine 2.5 which rapidly worsen over last 2 days and creatinine now up to 4.5 this morning. JAMES most likely secondary to ATN with hypotension and volume depletion in the setting of DKA and poor p.o. intake. --Continue to monitor on kidney function, electrolyte and volume status. Annalise nue to monitor intake and output. As blood pressure improved, has been off of pressor, hopefully creatinine will plateau and start improved. --Dose medications for EGFR less than 10 Thank you for allowing me to participate in your patient's care. - History of Present Illness Reason for Consultation: JAMES, Proteinuria, Hyponatremia Attending Physician: Clarence Nuñez History of Present Illness Barrett Sprague is a 49-year-old gentleman with past medical history significant for poorly controlled type 2 diabetes, alcohol abuse disorder admitted to the hospital with , DKA, possible pneumonia, hyponatremia and JAMES. Nephrology consult was requested for management of above. EMR records were reviewed in detail during patient's visit. Barrett was brought to ER on 06/19/2024 with altered mental status, confusion and found lying on floor by family member. According to the history has been having cough for few days and recently started on Zithromax by his PCP after he telehealth visit the day prior to admission. On the day of admission he was found by his family with significant confusion, change in mental status. He has history of heavy alcohol abuse but according to the report he was not drinking much for 2 days prior to admission. Also he has been rationing his insulin recently because of the cost. On admission lab was notable for blood sugar more than 600, sodium was 122, bicarb 6 with high anion gap metabolic acidosis, acute kidney injury creatinine 2.5 mg/dl Urinalysis showed 2+ proteinuria, 3+ glucose, 3+ ketone, 2+ but blood but no RBCs. Hemoglobin A1c was 9.2. Hemoglobin was 11.1. Respiratory BioFire was negative. He was profoundly hypotensive, initially requiring pressor support, lowest blood pressure was 82/57. Currently he is off of pressor and blood pressures staying around 110-15 systolic. He was treated with DKA protocol and alcohol withdrawal protocol. Started empirically on ceftriaxone. Currently continuing on Plasma-Lyte 100 mL/h. Has been having decent urine output, net positive, urine output was 1.2 L over last 24 hours. Blood sugar normalized. Sodium improved to 135, metabolic acidosis resolved. However, kidney function has been rapidly worsening over last 2 days and creatinine up to 4.5 this morning. Renal ultrasound was negative for postrenal obstruction. Has history of heavy alcohol abuse. Has long history of smoking, quit smoking just 2 years ago. No known family history of CKD or ESKD. No prior history of CKD, baseline creatinine has been 0.9-1.0. History of type 2 diabetes for years, historically seems to be poorly controlled with A1c around 9-10. He was restless and agitated during visit, did not answer any questions. Allergies Allergy/AdvReac Type Severity Reaction Status Date / Time No Known Allergies Allergy Verified 09/28/23 11:33 Home Medications Medication Instructions Recorded Confirmed Type multivitamin 1 tab PO QAM 06/08/22 06/19/24 History blood-glucose sensor (FreeStyle #2 ea 12/31/23 12/31/23 Rx Valeri 3 Sensor device) albuterol sulfate 90 mcg/actuation 1 puff inhalation DIRECTED PRN 06/19/24 06/19/24 History aerosol inhaler sob atorvastatin 10 mg tablet 10 mg PO UD 06/19/24 06/19/24 History azithromycin 250 mg tablet 250 mg PO DIRECTED 06/19/24 06/19/24 History semaglutide 0.25 mg or 0.5 mg (2 0.5 mg subcut UD 06/19/24 06/19/24 History mg/3 mL) subcutaneous pen injector (Ozempic) valacyclovir 500 mg tablet 500 mg PO UD PRN Outbreak 06/19/24 06/19/24 History Patient History Medical History Alcohol use disorder DM type 2 (diabetes mellitus, type 2) Suspected sleep apnea History of gastroesophageal reflux (GERD) denies current issues. Surgical History History of wisdom tooth extraction History of ankle surgery Rt Family History Mother Benign breast neoplasm Breast cancer Father Heart disease Grandfather (Paternal) Myocardial infarction Other No family history of adverse response to anesthesia Denies family history of Ovarian cancer Prostate cancer Diabetes Lung cancer Colorectal cancer Stroke Social History Smoking Status: Former smoker Tobacco Type: Cigarettes Age Started Using Tobacco: 14; Age Quit Using Tobacco: 45; Smoking End Date: 2 years ago; Second Hand Exposure: Yes; Do You Dip or Chew Tobacco: No; Tobacco Cessation Education Requested by Patient: No Hx Alcohol Use: Yes Alcohol type: hard liquor Alcohol Intake Frequency: 4 or More x per/Week Hx Substance Use: Yes Last Used Substance: Days (ago) Last Used Substance Other:: 6 months ago Substance Use Type Other:: prescription marijuan on occasion Preferred Language: Persian Communication Ability: Effective Visual Impairment: No Limitations Hearing Ability: Normal Garland Machine Operator Required: No Beliefs That Will Affect Care: None marital status: Single Current Living Situation: Other Current Living Situation Comment: friend current occupational status: employed 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[employer]) How many Children do You have: 0 Other Information That Helps Us Care for You: No Feels Safe at Home: Yes Safety Concerns: Feels Safe At This Time Childhood Exposure to Second-Hand Smoke: Yes Diet: diabetic and regular caffeine: Yes Dental Care, Regularly: No Physical Activity Frequency: Does not Exercise Seatbelt Use: always Sunscreen Use: Yes Assistive Devices: None Assistive Devices Comment: reading glasses Review of Systems Review of Systems: Unobtainable due to mental health condition Physical Exam Constitutional: WD/WN, vitals as above no acute distress Neck: normal visual inspection Respiratory: Auscultation: + diminished lung sounds; no wheezes Cardiovascular: RRR, no murmur, no edema Gastrointestinal (Abdomen): Inspection/Auscultation: abdomen normal to inspection Percussion/Palpation: abdomen soft; abdomen nontender Musculoskeletal: Extremities: extremities normal to inspection Skin: no rashes Neurologic: restless, moving all extremities Psychiatric: was not possible Results & Data Vital Signs (Past 12 Hours) Vital Signs Temp Pulse Pulse Resp BP BP Pulse Ox 06/21/24 10:05 37.5 C 100 H 20 95 06/21/24 10:00 142/80 H 06/21/24 09:57 37.5 C 102 H 24 96 06/21/24 09:06 37.4 C 99 H 25 H 98 06/21/24 09:01 136/95 06/21/24 09:01 136/95 06/21/24 08:54 37.3 C 98 H 28 H 98 06/21/24 08:06 37.3 C 97 H 19 98 06/21/24 08:00 107/79 06/21/24 08:00 06/21/24 08:00 06/21/24 08:00 96 H 06/21/24 07:54 37.3 C 99 H 20 98 06/21/24 07:00 37.1 C 96 H 20 97 06/21/24 07:00 130/97 06/21/24 07:00 130/97 06/21/24 07:00 130/97 06/21/24 07:00 37.3 C 96 H 18 130/97 98 06/21/24 06:03 37.0 C 96 H 19 106/72 97 06/21/24 05:36 37.1 C 98 H 19 95 06/21/24 05:00 37.4 C 103 H 19 135/85 94 06/21/24 04:39 120/93 06/21/24 04:21 37.7 C H 105 H 24 97 06/21/24 04:00 37.7 C H 105 H 21 119/88 96 06/21/24 04:00 06/21/24 03:03 38.1 C H 109 H 22 129/83 96 06/21/24 02:57 38.2 C H 112 H 26 H 93 06/21/24 02:03 38.2 C H 105 H 22 142/84 H 92 06/21/24 01:57 38.2 C H 107 H 25 H 95 06/21/24 01:15 38.1 C H 106 H 21 133/90 97 06/21/24 00:45 38.1 C H 107 H 22 96 06/21/24 00:03 38.0 C H 106 H 21 136/89 96 06/21/24 00:00 103 H 06/21/24 00:00 06/20/24 23:30 37.8 C H 104 H 25 H 96 06/20/24 23:03 37.8 C H 106 H 22 147/87 H 95 06/20/24 22:57 37.8 C H 107 H 20 95 O2 Del Method O2 Del Method O2 Flow Rate O2 Flow Rate 06/21/24 10:05 06/21/24 10:00 06/21/24 09:57 06/21/24 09:06 06/21/24 09:01 06/21/24 09:01 06/21/24 08:54 06/21/24 08:06 06/21/24 08:00 06/21/24 08:00 Nasal Cannula 2 06/21/24 08:00 Nasal Cannula 06/21/24 08:00 06/21/24 07:54 06/21/24 07:00 06/21/24 07:00 06/21/24 07:00 06/21/24 07:00 06/21/24 07:00 Nasal Cannula 2 06/21/24 06:03 06/21/24 05:36 06/21/24 05:00 06/21/24 04:39 06/21/24 04:21 06/21/24 04:00 06/21/24 04:00 Nasal Cannula 2 06/21/24 03:03 06/21/24 02:57 06/21/24 02:03 06/21/24 01:57 06/21/24 01:15 06/21/24 00:45 06/21/24 00:03 06/21/24 00:00 06/21/24 00:00 Nasal Cannula 06/20/24 23:30 06/20/24 23:03 06/20/24 22:57 PG Care Time/CCT Total # of Minutes Spent Total Time Spent with Patient: Total time spent is greater than 50% in coordination of care (as documented) at patient's floor/unit and/or counseling patient: Coding Level of Care Code 83817 INT INP/OBS CARE MIN Diagnoses Acute kidney injury N17.9 Altered mental status R40.1 Altered mental status type: stupor DKA (diabetic ketoacidosis) E11.11 Diabetes mellitus complication detail: with coma Diabetes mellitus type: type 2 Dehydration E86.0 Alcohol use disorder F19.90 Metabolic acidosis E87.20 Proteinuria R80.9 (2) Altered mental status Altered mental status type: stupor Qualified Code(s): R40.1 - Stupor (3) DKA (diabetic ketoacidosis) Diabetes mellitus complication detail: with coma Diabetes mellitus type: type 2 Qualified Code(s): E11.11 - Type 2 diabetes mellitus with ketoacidosis with coma
[2024-06-21] MEDS: THIAMINE HCL 100 MG TAB PO SCH (10:50)
--- NOTE | 2024-06-21 13:05 | Pharmacy Report ---
Pharmacy Glycemic Short Note 2 - Date of Service June 21, 2024 - Glycemic Short BSG Results (Last 24 hours): 06/20/24 06/20/24 06/20/24 16:18 18:06 18:08 Glucose 273 H POC Glucose 327 H* 268 H 06/20/24 06/21/24 06/21/24 20:20 00:21 04:09 Glucose POC Glucose 202 H 208 H 128 H 06/21/24 06/21/24 06/21/24 06:52 07:10 11:16 Glucose 115 H POC Glucose 136 H 147 H OUTPATIENT ANTIDIABETIC REGIMEN: * Semaglutide 0.5 mg SC weekly (per provider note- patient has not taken in many months * Insulin- no fill history/med rec available but per RN possibly takes 70/30. Provider note indicates patient had been rationing for several weeks due to cost * A1c: 9.2% 06/20/24 ASSESSMENT: 06/21 * Patient transitioned off of insulin infusion yesterday with some rebound- received 7 unit IV dose and an additional 15 units of lantus yesterday with downward trend overnight * BSG this AM 136 mg/dL- will trial 13 units BID of basal (weight based stress of 2)- will need to be cautious d/t increasing renal function * Patient with limited intake although clears ordered- keeping BSG checks as q4H for now * Novolog parameters were tightened last night- will continue with same for now 06/20 * 49 yo male with T2DM presenting with respiratory failure in the setting of influenza A, JAMES, and HHS (noncompliance with home regimen). Patient also at risk for alcohol withdrawal as typically drinks ~8 alcoholic drinks a day and last drink was 2 days prior to admission. * Patient was intubated upon and admission but was successfully extubated this morning. Patient is still somewhat lethargic/confused per RN and has not yet been cleared for PO intake due to aspiration concerns. * Insulin infusion was started on admission and continued at very high rates (~18 units/hr) overnight. BSGs downtrended this morning and at that time, the insulin infusion and dextrose containing fluids were held per protocol. Plan was discussed on multidisciplinary rounds and as AG and CO2 normalized, will attempt to fully transition off the drip and start basal/bolus insulin. I anticipate this transition could be challenging given previously very high drip rate requirements prior to d/c, unknown outpatient insulin needs, and tenuous NPO status. Will utilize weight based/moderate stress dosing as a conservative starting point. PLAN FOR INPATIENT GLYCEMIC CONTROL: * Hold outpatient oral diabetes medications * Basal insulin * Lantus 13 units SQ BID * Bolus insulin * NovoLog per scale ACHS or Q4hrs while NPO * Goal Range: Low 110 mg/dL - High 140 mg/dL * Correction Factor: 15 mg/dL/unit * Nutritional / Prandial insulin per carb ratio of 1 unit per 7 grams CHO consumed
[2024-06-21] MEDS: PHENobarbital sodium 65 MG/ML VIAL IV STA (13:17)
[2024-06-21 13:38] LABS: iSTAT Allen Test Pass; iSTAT Art Bld Gas pCO2 Correct 45 mmHg (35-46); iSTAT Art Bld Gas pH Corrected 7.282 (7.35-7.45); iSTAT Arterial Blood Gas HCO3 21 meg/L (19-24); iSTAT Arterial Blood Gas pCO2 44 mmHg (35-46); iSTAT Arterial Blood Gas pH 7.29 (7.35-7.45); iSTAT Arterial Blood Gas pO2 76 mmHg (80-95); iSTAT Arterial Blood Gas pO2 C 78; iSTAT Carbon Dioxide 23 mmol/L (24-31); iSTAT Hematocrit 30 % (42-52); iSTAT Hemoglobin 10.2 g/dl (14.0-18.0); iSTAT Sample Type Arterial; iSTAT Site L Radial; iSTAT Sodium 141 mmol/L (135-144); iSTAT SpO2 96
[2024-06-21 19:24] LABS: BUN Creatinine Ratio 17.1 (10-20); Calcium 8.3 mg/dl (8.6-10.3); Creatinine Clr Calc Pharmacy 21.7 ml/min; Magnesium 2.9 mg/dl (1.7-2.4); Phosphorus 3.9 mg/dl (2.5-4.9); Potassium 4.2 mmol/L (3.5-5.1)
--- NOTE | 2024-06-21 22:48 | Hospitalist Progress Note ---
Date of Service June 21, 2024 Assessment & Plan (1) DKA (diabetic ketoacidosis): (2) Influenza A: (3) T2DM (type 2 diabetes mellitus): (4) Alcohol use disorder: Plan 49-year-old male with history of type 2 diabetes recently rationing insulin due to cost, alcohol abuse with high risk for withdrawal who presents with acute respiratory failure due to flu A with possible superimposed pneumonia, suspected HHS, and potential early alcohol withdrawal with last drink 2 days prior due to illness. In the ER is profoundly acidotic, was initially observed for improvement following bicarb infusions however likely worsened and with additional concern for alcohol withdrawal, persistent acidosis, and respiratory failure was intubated and admitted to the ICU Acute respiratory failure Influenza A+, suspected superimposed pneumonia -Flu A positive. Tamiflu 75 mg x 1 then 30 twice daily if able to take p.o. or OG -For secondary pneumonia suspected due to x-ray opacities, leukocytosis with left shift cefepime/vancomycin. MRSA nare pending. VBG less than 7/52/52/HCO3 not able to be performed ABG pH 6.7 45/68/6 High risk for respiratory compromise, also with underlying concerns for severe alcohol withdrawal now 2 days out from last drink.Subsequently intubated for respiratory failure Target tidal volume 500, serial gas measurements Received 2 units of push bicarb, additional 3 units were ordered Fluids per [facility] protocol currently on 2 liters. now on rocephin JAMES, prerenal - Baseline creatinine 1.1. Creatinine acutely elevated above 4. currently with metabolic acidosis Alcohol abuse Hemoglobin 14.7, no evidence of GI bleed. Alcohol is negative on admission Per collateral from family drinks 8 large can alcoholic beverages "hard Mountain Dew "like drinks, when drinking out with friends will drink up to an additional half 5th of liquor, otherwise 1/5 or handle last around a week. No recent alcohol free days High risk for withdrawal Patient subsequently on reevaluation was intubated, switched to propofol for sedation not showing signs of withdrawal currently HHS Type II diabetic, no history of HHS/DKA Insulin gtt. adjust per protocol, goal BSG decrease of no more than around 150-200/h Urine ketones are present, critical metabolic acidosis, pseudohyponatremia, potassium is 5.0 Per last note review patient had been on Ozempic however on talking to family he is not taking this. He switch back to [id number] Novolin 70/30 which he has been rationing out due to cost. anion gap closed. continue aggressive fluids. Right arterial IV stick Patient did have a right AC IV in place during resuscitation. During evaluati on and resuscitation was noted to have pulsatile flow. On further evaluation pulsatile flow into syringe was confirmed consistent with serial IV. IV was subsequently removed with pressure applied for 5 minutes and then wrapped in a dressing. Medications discussed repeated through IV or IV fluids 2 doses of bicarb DVT prophylaxis: Heparin due to renal dysfunction Diet: N.p.o. CODE STATUS: Full code. Surrogate decision maker would be patient's mother. He has no spouse or children Disposition: ICU (2) Influenza A: (3) T2DM (type 2 diabetes mellitus): (4) Alcohol use disorder remain in the ICU Admission and Anticipated Discharge Date Admission Date: June 19, 2024 Subjective Patient off the ventilator. Somnolent Physical Exam Physical Exam: General: Critically ill-appearing. Somnolent, HEENT: Atraumatic, normocephalic. Pulm: Moderate air movement, Kussmaul breathing. No wheezing or rales Cardiac: Regular, tachycardic Abdominal: Nontender, nondistended, soft. BS present. No contusions Extremities: Dry. No contusions. Results & Data Results & Data Vital Signs (Past 12 Hours) Vital Signs Temp Pulse Pulse Resp BP BP Pulse Ox 06/21/24 22:01 132/89 06/21/24 22:00 38.2 C H 100 H 20 95 06/21/24 21:00 163/110 H 06/21/24 21:00 163/110 H 06/21/24 21:00 163/110 H 06/21/24 21:00 38.0 C H 101 H 0 L 95 06/21/24 20:30 181/102 H 06/21/24 20:30 181/102 H 06/21/24 20:30 181/102 H 06/21/24 20:30 181/102 H 06/21/24 20:30 181/102 H 06/21/24 20:24 38.0 C H 99 H 0 L 94 06/21/24 20:03 38.0 C H 102 H 0 L 97 06/21/24 20:00 160/99 H 06/21/24 19:54 38.0 C H 100 H 0 L 93 06/21/24 19:33 38.0 C H 100 H 0 L 96 06/21/24 19:30 174/97 H 06/21/24 19:30 174/97 H 06/21/24 19:30 174/97 H 06/21/24 19:00 173/98 H 06/21/24 18:48 37.9 C H 107 H 14 93 06/21/24 17:30 155/106 H 06/21/24 17:30 155/106 H 06/21/24 17:30 37.7 C H 105 H 22 95 06/21/24 17:24 37.7 C H 107 H 22 94 06/21/24 17:01 180/95 H 06/21/24 16:51 37.6 C H 105 H 22 92 06/21/24 16:18 37.6 C H 106 H 25 H 95 06/21/24 16:00 154/101 H 06/21/24 16:00 37.4 C 100 H 14 141/106 H 93 06/21/24 16:00 06/21/24 16:00 104 H 06/21/24 15:45 37.6 C H 109 H 29 H 90 06/21/24 15:31 161/104 H 06/21/24 15:31 161/104 H 06/21/24 15:24 37.5 C 110 H 22 94 06/21/24 15:03 37.5 C 107 H 24 92 06/21/24 15:00 195/118 H 06/21/24 14:57 37.5 C 105 H 12 90 06/21/24 14:31 172/96 H 06/21/24 14:30 37.5 C 107 H 23 93 06/21/24 14:11 37.4 C 107 H 23 94 06/21/24 14:00 137/94 06/21/24 14:00 137/94 06/21/24 14:00 137/94 06/21/24 13:41 37.5 C 105 H 23 94 06/21/24 13:38 37.1 C 105 H 22 145/107 H 95 06/21/24 13:32 37.4 C 104 H 21 95 06/21/24 13:32 145/107 H 06/21/24 13:26 37.4 C 106 H 22 91 06/21/24 13:17 104 H 22 183/103 H 06/21/24 13:00 183/105 H 06/21/24 12:59 37.4 C 108 H 24 94 06/21/24 12:02 37.4 C 102 H 23 92 06/21/24 12:00 168/105 H 06/21/24 12:00 168/105 H 06/21/24 12:00 168/105 H 06/21/24 12:00 06/21/24 12:00 37.4 C 109 H 20 168/105 H 96 06/21/24 11:59 37.4 C 109 H 27 H 94 06/21/24 11:53 37.4 C 103 H 22 94 06/21/24 11:00 157/83 H O2 Del Method O2 Del Method O2 Flow Rate O2 Flow Rate 06/21/24 22:01 06/21/24 22:00 06/21/24 21:00 06/21/24 21:00 06/21/24 21:00 06/21/24 21:00 06/21/24 20:30 06/21/24 20:30 06/21/24 20:30 06/21/24 20:30 06/21/24 20:30 06/21/24 20:24 06/21/24 20:03 06/21/24 20:00 06/21/24 19:54 06/21/24 19:33 06/21/24 19:30 06/21/24 19:30 06/21/24 19:30 06/21/24 19:00 06/21/24 18:48 06/21/24 17:30 06/21/24 17:30 06/21/24 17:30 06/21/24 17:24 06/21/24 17:01 06/21/24 16:51 06/21/24 16:18 06/21/24 16:00 06/21/24 16:00 Nasal Cannula 3 06/21/24 16:00 Nasal Cannula 2 06/21/24 16:00 06/21/24 15:45 06/21/24 15:31 06/21/24 15:31 06/21/24 15:24 06/21/24 15:03 06/21/24 15:00 06/21/24 14:57 06/21/24 14:31 06/21/24 14:30 06/21/24 14:11 06/21/24 14:00 06/21/24 14:00 06/21/24 14:00 06/21/24 13:41 06/21/24 13:38 Nasal Cannula 3 06/21/24 13:32 06/21/24 13:32 06/21/24 13:26 06/21/24 13:17 06/21/24 13:00 06/21/24 12:59 06/21/24 12:02 06/21/24 12:00 06/21/24 12:00 06/21/24 12:00 06/21/24 12:00 Nasal Cannula 2 06/21/24 12:00 Nasal Cannula 2 06/21/24 11:59 06/21/24 11:53 06/21/24 11:00 PG Care Time/CCT Total # of Minutes Spent Total Time Spent with Patient: Total time spent is greater than 50% in coordination of care (as documented) at patient's floor/unit and/or counseling patient: Coding Level of Care Code 69552 SUB INP/OBS CARE 3/50MIN Diagnoses DKA (diabetic ketoacidosis) E11.11 Diabetes mellitus complication detail: with coma Diabetes mellitus type: type 2 Influenza A J10.1 T2DM (type 2 diabetes mellitus) E11.9 Alcohol use disorder F19.90 (1) DKA (diabetic ketoacidosis) Diabetes mellitus complication detail: with coma Diabetes mellitus type: type 2 Qualified Code(s): E11.11 - Type 2 diabetes mellitus with ketoacidosis with coma
[2024-06-22] MEDS ORDERED: ACETAMINOPHEN 1,000 MG/100 ML VIAL IV PRN (00:03)
[2024-06-22] MEDS: ACETAMINOPHEN 1000 MG/100 ML IV IV ONE (00:51)
[2024-06-22 04:54] LABS: Albumin Level 2.8 gm/dl (3.4-5.0); BUN Creatinine Ratio 17.9 (10-20); Calcium 8.4 mg/dl (8.6-10.3); Creatinine Clr Calc Pharmacy 22.3 ml/min; Magnesium 2.8 mg/dl (1.7-2.4); Phosphorus 4.1 mg/dl (2.5-4.9); Potassium 3.9 mmol/L (3.5-5.1)
[2024-06-22 05:07] LABS: Basophils # (auto) 0.06 K/uL (0.00-0.20); Basophils % (auto) 0.5 %; Hematocrit (blood only) 33.5 % (42.0-52.0); Hemoglobin 11.9 g/dl (14.0-18.0); Immature Granulocytes # (auto) 0.57 K/uL (0.01-0.20); Immature Granulocytes % (auto) 4.8 %; Lymphocytes # (auto) 0.68 K/uL (1.20-3.40); Lymphocytes % (auto) 5.8 %; Mean Corpuscular Hemoglobin 31.2 pg (25.0-34.0); Mean Corpuscular Hgb Conc 35.5 g/dL (32.0-36.0); Mean Corpuscular Volume 87.9 fL (80.0-100.0); Mean Platelet Volume 9.7 fL (9.4-12.4); Monocytes # (auto) 0.78 K/uL (0.11-0.59); Monocytes % (auto) 6.6 %; Neutrophils # (auto) 9.68 K/uL (1.40-6.50); Neutrophils % (auto) 82.3 %; Platelet Count 188 K/uL (130-400); RDW Standard Deviation 45.1 fL (36.4-46.3); Red Blood Count 3.81 M/uL (4.70-6.10); White Blood Count 11.77 K/ul (4.8-10.8)
[2024-06-22] MEDS: LANTUS PER UNIT CHARGE SC SCH (08:35)
--- NOTE | 2024-06-22 09:40 | Critical Care Progress Note ---
Date of Service June 22, 2024 Assessment & Plan (1) Lactic acidosis: Plan: Reason Critically Ill: 49-year-old male with acute renal failure and acute alcohol withdrawal necessitating IV sedative administration PLAN: Neuro: Acute encephalopathy: Likely metabolic: Recent DKA, influenza A, acute renal failure/azotemia -Clinical question remains how much delirium is attributable to azotemia versus alcohol withdraw versus influenza A -Yesterday patient was hypertensive and tachycardic that responded well to SHAHIDA agonist will continue to use those hemodynamic parameters to guide sedative use -Continue alcohol withdrawal severity scoring -Consider phenobarbital (1 dose given yesterday) Resp: Secondary bacterial pneumonia: Strep pneumo in the setting of influenza A -5-day course ceftriaxone Patient liberated from ventilator 06/20 CV: Tachycardia: Improved -Compensatory Fluids/Renal: High gap metabolic acidosis: Mild -Secondary to acute renal failure Acute kidney injury: Worsening: Adequate urine output, creatinine has likely nadired -Unremarkable renal ultrasound -Nephrology consultation ID: Possible pneumonia -Ceftriaxone 5 days for possible community-acquired pneumonia GI/Nutrition: N.p.o. -Secondary to decreased mental status Heme:Leukocytosis DVT prophylaxis: Heparin 5000 every 8 Endocrine: ICU hyperglycemia protocol Diabetic ketoacidosis: Resolved -Given patient's renal dysfunction and type 2 diabetes and inability to take p.o. patient's blood sugar may be variable as we tried to optimize glucose control Vascular access: Peripheral IV Code Status: Full code Disposition: ICU (2) DKA (diabetic ketoacidosis): (3) Influenza A: (4) Alcohol use disorder: (5) Alcohol dependence: (6) Injury of brachial artery: Plan: Patient had IV placed presumptively by EMS. In emergency department there was an attempt to instill medication into right brachial IV however was immediately recognized that there was significant flashback and it was recognized that the IV was placed in the artery. The IV was removed and pressure held, the patient has not had any evidence of vascular compromise of the right hand. Admission and Anticipated Discharge Date Admission Date: June 19, 2024 Supervising Physician Co-Signing Physician Notes I have personally spent 40 minutes of critical care time in the direct management of this patient. This is a life/limb threatening event. This includes time spent evaluating patient, direct bedside care, chart review, placing orders, interpretation of diagnostic studies, discussion with consultants, patient, and/or family members regarding treatment decisions, as well as other required patient management activities. This time is exclusive of all separately billable procedures, and teaching time and separate from and in addition to any other critical care service time. Subjective No overnight events Physical Exam Physical Exam: General: Somnolent but arousable. Redirectable Skin: Warm, dry, Head: Atraumatic Ears, nose, mouth and throat: airway patent Cardiovascular: Normal peripheral perfusion Respiratory: no respiratory distress Gastrointestinal: Non distended Musculoskeletal: No deformity, -No evidence of vascular compromise of right upper extremity Results & Data Results & Data Vital Signs (Past 12 Hours) Vital Signs Temp Pulse Pulse Resp BP BP Pulse Ox 06/22/24 09:24 06/22/24 08:28 36.4 C L 89 18 108/84 95 06/22/24 08:07 91 H 18 108/84 95 06/22/24 08:07 108/84 06/22/24 08:06 92 H 74 L 06/22/24 07:00 118/75 06/22/24 07:00 118/75 06/22/24 07:00 37.6 C H 89 19 98 06/22/24 06:48 84 06/22/24 06:45 37.6 C H 83 15 99 06/22/24 06:30 122/84 06/22/24 06:30 122/84 06/22/24 06:30 122/84 06/22/24 06:27 37.7 C H 84 19 97 06/22/24 06:17 133/85 06/22/24 06:01 89/41 L 06/22/24 06:00 37.7 C H 87 0 L 90 06/22/24 05:30 37.6 C H 84 7 L 97 06/22/24 05:30 136/64 06/22/24 05:06 37.5 C 90 18 98 06/22/24 05:00 132/74 06/22/24 04:48 37.4 C 92 H 18 97 06/22/24 04:15 37.4 C 91 H 17 96 06/22/24 04:00 114/76 06/22/24 04:00 06/22/24 03:54 37.5 C 91 H 18 98 06/22/24 03:00 138/83 06/22/24 03:00 138/83 06/22/24 03:00 138/83 06/22/24 03:00 37.8 C H 94 H 20 94 06/22/24 02:30 123/81 06/22/24 02:30 123/81 06/22/24 02:30 123/81 06/22/24 02:30 123/81 06/22/24 02:21 38.0 C H 91 H 0 L 97 06/22/24 02:12 38.0 C H 92 H 16 97 06/22/24 02:00 122/84 06/22/24 02:00 122/84 06/22/24 01:51 38.1 C H 92 H 9 L 97 06/22/24 01:06 38.4 C H 92 H 5 L 92 06/22/24 01:00 118/95 06/22/24 00:48 38.4 C H 92 H 24 95 06/22/24 00:33 38.4 C H 92 H 21 94 06/22/24 00:31 139/76 06/22/24 00:31 139/76 06/22/24 00:31 139/76 06/22/24 00:24 38.5 C H 101 H 22 93 06/22/24 00:00 06/22/24 00:00 38.6 C H 101 H 26 H 96 06/22/24 00:00 143/75 H 06/22/24 00:00 92 H 06/21/24 23:30 131/87 06/21/24 23:30 37.7 C H 92 H 18 95 06/21/24 23:07 131/85 06/21/24 23:03 37.8 C H 101 H 26 H 95 06/21/24 22:51 38.5 C H 103 H 28 H 94 06/21/24 22:30 130/87 06/21/24 22:30 130/87 06/21/24 22:30 130/87 06/21/24 22:30 130/87 06/21/24 22:21 38.3 C H 103 H 28 H 93 06/21/24 22:03 38.2 C H 106 H 29 H 95 06/21/24 22:01 132/89 06/21/24 22:00 38.2 C H 100 H 20 95 Pulse Ox O2 Del Method O2 Del Method O2 Flow Rate 06/22/24 09:24 97 Room Air 06/22/24 08:28 Room Air 06/22/24 08:07 Room Air 06/22/24 08:07 06/22/24 08:06 06/22/24 07:00 06/22/24 07:00 06/22/24 07:00 06/22/24 06:48 06/22/24 06:45 06/22/24 06:30 06/22/24 06:30 06/22/24 06:30 06/22/24 06:27 06/22/24 06:17 06/22/24 06:01 06/22/24 06:00 06/22/24 05:30 06/22/24 05:30 06/22/24 05:06 06/22/24 05:00 06/22/24 04:48 06/22/24 04:15 06/22/24 04:00 06/22/24 04:00 95 Nasal Cannula 2 06/22/24 03:54 06/22/24 03:00 06/22/24 03:00 06/22/24 03:00 06/22/24 03:00 06/22/24 02:30 06/22/24 02:30 06/22/24 02:30 06/22/24 02:30 06/22/24 02:21 06/22/24 02:12 06/22/24 02:00 06/22/24 02:00 06/22/24 01:51 06/22/24 01:06 06/22/24 01:00 06/22/24 00:48 06/22/24 00:33 06/22/24 00:31 06/22/24 00:31 06/22/24 00:31 06/22/24 00:24 06/22/24 00:00 92 Room Air 06/22/24 00:00 06/22/24 00:00 06/22/24 00:00 06/21/24 23:30 06/21/24 23:30 06/21/24 23:07 06/21/24 23:03 06/21/24 22:51 06/21/24 22:30 06/21/24 22:30 06/21/24 22:30 06/21/24 22:30 06/21/24 22:21 06/21/24 22:03 06/21/24 22:01 06/21/24 22:00 Critical Care Results & Data Vital Signs (Past 12 Hours) Vital Signs Temp Pulse Pulse Resp BP BP Pulse Ox 06/22/24 09:24 06/22/24 08:28 36.4 C L 89 18 108/84 95 06/22/24 08:07 91 H 18 108/84 95 06/22/24 08:07 108/84 06/22/24 08:06 92 H 74 L 06/22/24 07:00 118/75 06/22/24 07:00 118/75 06/22/24 07:00 37.6 C H 89 19 98 06/22/24 06:48 84 06/22/24 06:45 37.6 C H 83 15 99 06/22/24 06:30 122/84 06/22/24 06:30 122/84 06/22/24 06:30 122/84 06/22/24 06:27 37.7 C H 84 19 97 06/22/24 06:17 133/85 06/22/24 06:01 89/41 L 06/22/24 06:00 37.7 C H 87 0 L 90 06/22/24 05:30 37.6 C H 84 7 L 97 06/22/24 05:30 136/64 06/22/24 05:06 37.5 C 90 18 98 06/22/24 05:00 132/74 06/22/24 04:48 37.4 C 92 H 18 97 06/22/24 04:15 37.4 C 91 H 17 96 06/22/24 04:00 114/76 06/22/24 04:00 06/22/24 03:54 37.5 C 91 H 18 98 06/22/24 03:00 138/83 06/22/24 03:00 138/83 06/22/24 03:00 138/83 06/22/24 03:00 37.8 C H 94 H 20 94 06/22/24 02:30 123/81 06/22/24 02:30 123/81 06/22/24 02:30 123/81 06/22/24 02:30 123/81 06/22/24 02:21 38.0 C H 91 H 0 L 97 06/22/24 02:12 38.0 C H 92 H 16 97 06/22/24 02:00 122/84 06/22/24 02:00 122/84 06/22/24 01:51 38.1 C H 92 H 9 L 97 06/22/24 01:06 38.4 C H 92 H 5 L 92 06/22/24 01:00 118/95 06/22/24 00:48 38.4 C H 92 H 24 95 06/22/24 00:33 38.4 C H 92 H 21 94 06/22/24 00:31 139/76 06/22/24 00:31 139/76 06/22/24 00:31 139/76 06/22/24 00:24 38.5 C H 101 H 22 93 06/22/24 00:00 06/22/24 00:00 38.6 C H 101 H 26 H 96 06/22/24 00:00 143/75 H 06/22/24 00:00 92 H 06/21/24 23:30 131/87 06/21/24 23:30 37.7 C H 92 H 18 95 06/21/24 23:07 131/85 06/21/24 23:03 37.8 C H 101 H 26 H 95 06/21/24 22:51 38.5 C H 103 H 28 H 94 06/21/24 22:30 130/87 06/21/24 22:30 130/87 06/21/24 22:30 130/87 06/21/24 22:30 130/87 06/21/24 22:21 38.3 C H 103 H 28 H 93 06/21/24 22:03 38.2 C H 106 H 29 H 95 06/21/24 22:01 132/89 06/21/24 22:00 38.2 C H 100 H 20 95 Pulse Ox O2 Del Method O2 Del Method O2 Flow Rate 06/22/24 09:24 97 Room Air 06/22/24 08:28 Room Air 06/22/24 08:07 Room Air 06/22/24 08:07 06/22/24 08:06 06/22/24 07:00 06/22/24 07:00 06/22/24 07:00 06/22/24 06:48 06/22/24 06:45 06/22/24 06:30 06/22/24 06:30 06/22/24 06:30 06/22/24 06:27 06/22/24 06:17 06/22/24 06:01 06/22/24 06:00 06/22/24 05:30 06/22/24 05:30 06/22/24 05:06 06/22/24 05:00 06/22/24 04:48 06/22/24 04:15 06/22/24 04:00 06/22/24 04:00 95 Nasal Cannula 2 06/22/24 03:54 06/22/24 03:00 06/22/24 03:00 06/22/24 03:00 06/22/24 03:00 06/22/24 02:30 06/22/24 02:30 06/22/24 02:30 06/22/24 02:30 06/22/24 02:21 06/22/24 02:12 06/22/24 02:00 06/22/24 02:00 06/22/24 01:51 06/22/24 01:06 06/22/24 01:00 06/22/24 00:48 06/22/24 00:33 06/22/24 00:31 06/22/24 00:31 06/22/24 00:31 06/22/24 00:24 06/22/24 00:00 92 Room Air 06/22/24 00:00 06/22/24 00:00 06/22/24 00:00 06/21/24 23:30 06/21/24 23:30 06/21/24 23:07 06/21/24 23:03 06/21/24 22:51 06/21/24 22:30 06/21/24 22:30 06/21/24 22:30 06/21/24 22:30 06/21/24 22:21 06/21/24 22:03 06/21/24 22:01 06/21/24 22:00 Lab & Micro Results (Past 24 Hours) RBC 3.81 M/uL (4.70-6.10) L 06/22/24 WBC 11.77 K/ul (4.8-10.8) H 06/22/24 Hgb 11.9 g/dl (14.0-18.0) L 06/22/24 Hct 33.5 % (42.0-52.0) L 06/22/24 MCV 87.9 fL (80.0-100.0) 06/22/24 MCH 31.2 pg (25.0-34.0) 06/22/24 MCHC 35.5 g/dL (32.0-36.0) 06/22/24 RDW Standard Deviation 45.1 fL (36.4-46.3) 06/22/24 RDW Coefficient of Variation 14.0 % (11.5-14.5) 06/22/24 Plt Count 188 K/uL (130-400) 06/22/24 MPV 9.7 fL (9.4-12.4) 06/22/24 Neutrophils (%) (Auto) 82.3 % 06/22/24 Lymphocytes (%) (Auto) 5.8 % 06/22/24 Monocytes # (Auto) 0.78 K/uL (0.11-0.59) H 06/22/24 Eosinophils # (Auto) 0.00 K/uL (0.00-0.50) 06/22/24 Immature Granulocyte % (Auto) 4.8 % 06/22/24 Neutrophils # (Auto) 9.68 K/uL (1.40-6.50) H 06/22/24 Lymphocytes # (Auto) 0.68 K/uL (1.20-3.40) L 06/22/24 Monocytes # (Auto) 0.78 K/uL (0.11-0.59) H 06/22/24 Eosinophils # (Auto) 0.00 K/uL (0.00-0.50) 06/22/24 Basophils # (Auto) 0.06 K/uL (0.00-0.20) 06/22/24 Immature Granulocyte # (Auto) 0.57 K/uL (0.01-0.20) H 06/22 Na 142 mmol/L (136-145) 06/22/24 K 3.9 mmol/L (3.5-5.1) 06/22/24 Cl 109 mmol/L (98-107) H 06/22/24 CO2 21 mmol/L (21-32) 06/22/24 Anion Gap 12 (3-11) H 06/22/24 BUN 80 mg/dl (6-23) H 06/22/24 Creatinine 4.47 mg/dl (0.6-1.4) H 06/22/24 BUN/Creatinine Ratio 17.9 (10-20) 06/22/24 Glu 185 mg/dl (70-99(Fasting)) H 06/22/24 Ca 8.4 mg/dl (8.6-10.3) L 06/22/24 Phosphorus Level 4.1 mg/dl (2.5-4.9) 06/22/24 Albumin 2.8 gm/dl (3.4-5.0) L 06/22/24 Mg 2.8 mg/dl (1.7-2.4) H 06/22/24 03:56 Calcium Level 8.4 mg/dl (8.6-10.3) L 06/22/24 03:56 Venous Blood pH 7.32 (7.36-7.41) L 06/22/24 03:56 Oliverio Test Pass 06/21/24 13:25 Microbiology 06/19/24 13:40 Gram Stain - Final Sputum,Vent Suction Sputum Culture - Final Streptococcus pneumoniae 06/19/24 11:27 Aerobic Blood Culture - Preliminary Blood No growth in Aerobic bottle after 48 hours. Anaerobic Blood Culture - Preliminary No growth in Anaerobic bottle after 48 hours. 06/19/24 11:27 Aerobic Blood Culture - Preliminary Blood No growth in Aerobic bottle after 48 hours. Anaerobic Blood Culture - Preliminary No growth in Anaerobic bottle after 48 hours. I & O Totals 24 Hours 06/21/24 06/22/24 06/23/24 06:59 06:59 06:59 Intake Total 2731.363 / 2731.363 1391.667 / 1391.667 Output Total 1180 / 1180 2336 / 2336 Balance 1551.363 / 1551.363 -944.333 / -944.333 Cumulative 06/19/24 10:54 thru 06/22/24 06:24 Intake Total 04162.708 Output Total 5496 Balance 5829.708 RT Ventilator Mngmt (Last Documented) Ventilator Ordered Settings Ventilator Support Mode CPAP 06/20/24 07:23 Respiratory Rate 18 06/22/24 08:28 Ventilator Tidal Volume 400 06/20/24 07:00 Setting Minute Ventilation 8.2 06/20/24 07:23 Ventilator Positive Pressure 5 06/19/24 20:00 Support Setting Positive End Expiratory 5 06/20/24 07:23 Pressure Fraction of Inspired Oxygen 2 06/20/24 08:30 Machine Comment Vt and RR changed 06/20/24 00:42 Ventilator - PT Measurements Respiratory Rate 18 Exhaled Tidal Volume 385 Minute Ventilation 8.2 Peak Inspiratory Airway 7 Pressure Mean Airway Pressure 20 Plateau Pressure 15 Respiratory Cycle Inspiratory: 1:4.0 Expiratory Ratio Inspiratory Phase Time 0.6 End-Tidal CO2 33 Static Lung Compliance 50.40 Dynamic Lung Compliance 192.50 Normal Static Lung Compliance 50.00 Patient Measurements Comment RT assisted Dr. Garg w/ intubation at this time. ETT 8.0mm placed 26cm@lip by Dr. Garg. Placement confirmed w/ +EzCAP color change, B/S present equal bilaterally, no sounds heard over stomach. Pt placed on vent settings per Dr. Garg. CXR and ABG pending. Moderate amount of creamy fernandez secretions suctioned from airway. Sputum sample collected per Dr. Garg. Coding Level of Care Code 46753 CRITICAL CARE 1ST 30-74M Diagnoses Lactic acidosis E87.20 DKA (diabetic ketoacidosis) E11.11 Diabetes mellitus complication detail: with coma Diabetes mellitus type: type 2 Influenza A J10.1 Alcohol use disorder F19.90 Alcohol dependence F10.20 Injury of right brachial artery, initial encounter S45.101A Encounter type: initial encounter Laterality: right (2) DKA (diabetic ketoacidosis) Diabetes mellitus complication detail: with coma Diabetes mellitus type: type 2 Qualified Code(s): E11.11 - Type 2 diabetes mellitus with ketoacidosis with coma (6) Injury of brachial artery Encounter type: initial encounter Laterality: right Qualified Code(s): S45.101A - Unspecified injury of brachial artery, right side, initial encounter
--- NOTE | 2024-06-22 10:22 | Nephrology Progress Note ---
Date of Service June 22, 2024 Assessment & Plan (1) Acute kidney injury: (2) Altered mental status: (3) DKA (diabetic ketoacidosis): (4) Dehydration: (5) Alcohol use disorder: (6) Metabolic acidosis: (7) Proteinuria: Plan 49-year-old gentleman with baseline normal kidney function, baseline creatinine 1.1 mg/dl, history of poorly controlled type 2 diabetes and alcohol dependence, admitted with altered mental status, DKA, volume depletion, JAMES and multiple electrolyte abnormality. Urinalysis with proteinuria, glycosuria and 3+ ketone. No hematuria or UTI. Renal ultrasound otherwise unremarkable. Has been nonoliguric. Was profoundly hypotensive on admission requiring pressor support but blood pressure improved. On admission notable lab was notable for JAMES, creatinine 2.5 which rapidly worsen over last 2 days and creatinine now up to 4.5 this morning. JAMES most likely secondary to ATN with hypotension and volume depletion in the setting of DKA and poor p.o. intake. Cr peaked, electrolyte acceptable. BP fair. Decent Biopsy-provenUO --Continue to monitor kidney function, electrolyte and volume status, monitor intake and output, aim for net even. If remain NPO and sedated, recommend starting on maintenance IV fluid. --Dose medications for eGFR less than 10 Admission and Anticipated Discharge Date Admission Date: June 19, 2024 Subjective Barrett was seen and evaluated this morning in ICU. He was sedated, not in any distress, vital signs stable. Kidney function relatively stable, creatinine seemed to have peaked, electrolyte acceptable. Decent urine output, net negative. Vital signs stable, has been off of pressor for 2 days. Review of Systems Review of Systems: Unobtainable due to mental health condition Physical Exam Constitutional: WD/WN, vitals as above + ill appearing; no acute distress sedated Respiratory: Auscultation: + diminished lung sounds; no wheezes Cardiovascular: RRR, no murmur, no edema Gastrointestinal (Abdomen): Inspection/Auscultation: abdomen normal to i nspection Percussion/Palpation: abdomen soft; abdomen nontender Musculoskeletal: Extremities: extremities normal to inspection Skin: no rashes Results & Data Vital Signs (Past 12 Hours) Vital Signs Temp Pulse Pulse Resp BP BP Pulse Ox 06/22/24 09:24 06/22/24 08:28 36.4 C L 89 18 108/84 95 06/22/24 08:07 91 H 18 108/84 95 06/22/24 08:07 108/84 06/22/24 08:06 92 H 74 L 06/22/24 08:00 06/22/24 07:00 118/75 06/22/24 07:00 118/75 06/22/24 07:00 37.6 C H 89 19 98 06/22/24 06:48 84 06/22/24 06:45 37.6 C H 83 15 99 06/22/24 06:30 122/84 06/22/24 06:30 122/84 06/22/24 06:30 122/84 06/22/24 06:27 37.7 C H 84 19 97 06/22/24 06:17 133/85 06/22/24 06:01 89/41 L 06/22/24 06:00 37.7 C H 87 0 L 90 06/22/24 05:30 37.6 C H 84 7 L 97 06/22/24 05:30 136/64 06/22/24 05:06 37.5 C 90 18 98 06/22/24 05:00 132/74 06/22/24 04:48 37.4 C 92 H 18 97 06/22/24 04:15 37.4 C 91 H 17 96 06/22/24 04:00 114/76 06/22/24 04:00 06/22/24 03:54 37.5 C 91 H 18 98 06/22/24 03:00 138/83 06/22/24 03:00 138/83 06/22/24 03:00 138/83 06/22/24 03:00 37.8 C H 94 H 20 94 06/22/24 02:30 123/81 06/22/24 02:30 123/81 06/22/24 02:30 123/81 06/22/24 02:30 123/81 06/22/24 02:21 38.0 C H 91 H 0 L 97 06/22/24 02:12 38.0 C H 92 H 16 97 06/22/24 02:00 122/84 06/22/24 02:00 122/84 06/22/24 01:51 38.1 C H 92 H 9 L 97 06/22/24 01:06 38.4 C H 92 H 5 L 92 06/22/24 01:00 118/95 06/22/24 00:48 38.4 C H 92 H 24 95 06/22/24 00:33 38.4 C H 92 H 21 94 06/22/24 00:31 139/76 06/22/24 00:31 139/76 06/22/24 00:31 139/76 06/22/24 00:24 38.5 C H 101 H 22 93 06/22/24 00:00 06/22/24 00:00 38.6 C H 101 H 26 H 96 06/22/24 00:00 143/75 H 06/22/24 00:00 92 H 06/21/24 23:30 131/87 06/21/24 23:30 37.7 C H 92 H 18 95 06/21/24 23:07 131/85 06/21/24 23:03 37.8 C H 101 H 26 H 95 06/21/24 22:51 38.5 C H 103 H 28 H 94 06/21/24 22:30 130/87 06/21/24 22:30 130/87 06/21/24 22:30 130/87 06/21/24 22:30 130/87 06/21/24 22:21 38.3 C H 103 H 28 H 93 Pulse Ox O2 Del Method O2 Del Method O2 Flow Rate 06/22/24 09:24 97 Room Air 06/22/24 08:28 Room Air 06/22/24 08:07 Room Air 06/22/24 08:07 06/22/24 08:06 06/22/24 08:00 Room Air 06/22/24 07:00 06/22/24 07:00 06/22/24 07:00 06/22/24 06:48 06/22/24 06:45 06/22/24 06:30 06/22/24 06:30 06/22/24 06:30 06/22/24 06:27 06/22/24 06:17 06/22/24 06:01 06/22/24 06:00 06/22/24 05:30 06/22/24 05:30 06/22/24 05:06 06/22/24 05:00 06/22/24 04:48 06/22/24 04:15 06/22/24 04:00 06/22/24 04:00 95 Nasal Cannula 2 06/22/24 03:54 06/22/24 03:00 06/22/24 03:00 06/22/24 03:00 06/22/24 03:00 06/22/24 02:30 06/22/24 02:30 06/22/24 02:30 06/22/24 02:30 06/22/24 02:21 06/22/24 02:12 06/22/24 02:00 06/22/24 02:00 06/22/24 01:51 06/22/24 01:06 06/22/24 01:00 06/22/24 00:48 06/22/24 00:33 06/22/24 00:31 06/22/24 00:31 06/22/24 00:31 06/22/24 00:24 06/22/24 00:00 92 Room Air 06/22/24 00:00 06/22/24 00:00 06/22/24 00:00 06/21/24 23:30 06/21/24 23:30 06/21/24 23:07 06/21/24 23:03 06/21/24 22:51 06/21/24 22:30 06/21/24 22:30 06/21/24 22:30 06/21/24 22:30 06/21/24 22:21 PG Care Time/CCT Total # of Minutes Spent Total Time Spent with Patient: Total time spent is greater than 50% in coordination of care (as documented) at patient's floor/unit and/or counseling patient: Coding Level of Care Code 22638 SUB INP/OBS CARE 2/35MIN Diagnoses Acute kidney injury N17.9 Altered mental status R40.1 Altered mental status type: stupor DKA (diabetic ketoacidosis) E11.11 Diabetes mellitus complication detail: with coma Diabetes mellitus type: type 2 Dehydration E86.0 Alcohol use disorder F19.90 Metabolic acidosis E87.20 Proteinuria R80.9 (2) Altered mental status Altered mental status type: stupor Qualified Code(s): R40.1 - Stupor (3) DKA (diabetic ketoacidosis) Diabetes mellitus complication detail: with coma Diabetes mellitus type: type 2 Qualified Code(s): E11.11 - Type 2 diabetes mellitus with ketoacidosis with coma
--- NOTE | 2024-06-22 14:43 | Pharmacy Report ---
Pharmacy Glycemic Short Note 2 - Date of Service June 22, 2024 - Glycemic Short BSG Results (Last 24 hours): 06/21/24 06/21/24 06/21/24 16:48 18:55 20:00 Glucose 180 H POC Glucose 197 H 173 H 06/22/24 06/22/24 06/22/24 00:39 03:56 04:07 Glucose 185 H POC Glucose 161 H 185 H 06/22/24 06/22/24 08:20 11:27 Glucose POC Glucose 179 H 171 H OUTPATIENT ANTIDIABETIC REGIMEN: * Semaglutide 0.5 mg SC weekly (per provider note- patient has not taken in many months * Insulin- no fill history/med rec available but per RN possibly takes 70/30. Provider note indicates patient had been rationing for several weeks due to cost * A1c: 9.2% 06/20/24 ASSESSMENT: 06/22: * BSGs yesterday were [phone] mg/dL and fasting was 179 mg/dL this morning. Patient received a total of 29units of insulin, 20 of which was basal. * Scr did down trend today but given it is still significantly elevated at 4.47 and patient still with no appreciable po intake, will conservatively increase total lantus dosing today. 06/21 * Patient transitioned off of insulin infusion yesterday with some rebound- received 7 unit IV dose and an additional 15 units of lantus yesterday with downward trend overnight * BSG this AM 136 mg/dL- will trial 13 units BID of basal (weight based stress of 2)- will need to be cautious d/t increasing renal function * Patient with limited intake although clears ordered- keeping BSG checks as q4H for now * Novolog parameters were tightened last night- will continue with same for now 06/20 * 49 yo male with T2DM presenting with respiratory failure in the setting of influenza A, JAMES, and HHS (noncompliance with home regimen). Patient also at risk for alcohol withdrawal as typically drinks ~8 alcoholic drinks a day and last drink was 2 days prior to admission. * Patient was intubated upon and admission but was successfully extubated this morning. Patient is still somewhat lethargic/confused per RN and has not yet been cleared for PO intake due to aspiration concerns. * Insulin infusion was started on admission and continued at very high rates (~18 units/hr) overnight. BSGs downtrended this morning and at that time, the insulin infusion and dextrose containing fluids were held per protocol. Plan was discussed on multidisciplinary rounds and as AG and CO2 normalized, will attempt to fully transition off the drip and start basal/bolus insulin. I anticipate this transition could be challenging given previously very high drip rate requirements prior to d/c, unknown outpatient insulin needs, and ten uous NPO status. Will utilize weight based/moderate stress dosing as a conservative starting point. PLAN FOR INPATIENT GLYCEMIC CONTROL: * Hold outpatient oral diabetes medications * Basal insulin * Lantus 15 units SQ this morning * Lantus scale this evening based on BSG- 0, 9 or 13 units * Bolus insulin * NovoLog per scale ACHS or Q4hrs while NPO * Goal Range: Low 110 mg/dL - High 140 mg/dL * Correction Factor: 15 mg/dL/unit * Nutritional / Prandial insulin per carb ratio of 1 unit per 7 grams CHO consumed
--- NOTE | 2024-06-22 23:03 | Hospitalist Progress Note ---
Date of Service June 22, 2024 Assessment & Plan (1) DKA (diabetic ketoacidosis): (2) Influenza A: (3) T2DM (type 2 diabetes mellitus): (4) Alcohol use disorder: Plan 49-year-old male with history of type 2 diabetes recently rationing insulin due to cost, alcohol abuse with high risk for withdrawal who presents with acute respiratory failure due to flu A with possible superimposed pneumonia, suspected HHS, and potential early alcohol withdrawal with last drink 2 days prior due to illness. In the ER is profoundly acidotic, was initially observed for improvement following bicarb infusions however likely worsened and with additional concern for alcohol withdrawal, persistent acidosis, and respiratory failure was intubated and admitted to the ICU Acute respiratory failure Influenza A+, suspected superimposed pneumonia -Flu A positive. Tamiflu 75 mg x 1 then 30 twice daily if able to take p.o. or OG -For secondary pneumonia suspected due to x-ray opacities, leukocytosis with left shift cefepime/vancomycin. MRSA nare pending. VBG less than 7/52/52/HCO3 not able to be performed ABG pH 6.7 45/68/6 High risk for respiratory compromise, also with underlying concerns for severe alcohol withdrawal now 2 days out from last drink.Subsequently intubated for respiratory failure Target tidal volume 500, serial gas measurements Received 2 units of push bicarb, additional 3 units were ordered Fluids per [facility] protocol on room air now on rocephin will remain in the ICU JAMES, prerenal - Baseline creatinine 1.1. Creatinine acutely elevated above 4 but slightly improving. currently with metabolic acidosis Alcohol abuse Hemoglobin 14.7, no evidence of GI bleed. Alcohol is negative on admission Per collateral from family drinks 8 large can alcoholic beverages "hard Mountain Dew "like drinks, when drinking out with friends will drink up to an additional half 5th of liquor, otherwise 1/5 or handle last around a week. No recent alcohol free days High risk for withdrawal Patient subsequently on reevaluation was intubated, switched to propofol for sedation not showing signs of withdrawal currently HHS Type II diabetic, no history of HHS/DKA Insulin gtt. adjust per protocol, goal BSG decrease of no more than around 150-200/h Urine ketones are present, critical metabolic acidosis, pseudohyponatremia, potassium is 5.0 Per last note review patient had been on Ozempic however on talking to family he is not taking this. He switch back to [id number] Novolin 70/30 which he has been rationing out due to cost. anion gap closed. continue aggressive fluids. Right arterial IV stick Patient did have a right AC IV in place during resuscitation. During evaluation and resuscitation was noted to have pulsatile flow. On further evaluation pulsatile flow into syringe was confirmed consistent with serial IV. IV was subsequently removed with pressure applied for 5 minutes and then wrapped in a dressing. Medications discussed repeated through IV or IV fluids 2 doses of bicarb DVT prophylaxis: Heparin due to renal dysfunction Diet: N.p.o. CODE STATUS: Full code. Surrogate decision maker would be patient's mother. He has no spouse or children Disposition: ICU (2) Influenza A: (3) T2DM (type 2 diabetes mellitus): (4) Alcohol use disorder remain in the ICU Admission and Anticipated Discharge Date Admission Date: June 19, 2024 Subjective Patient remains lethargic. Physical Exam Physical Exam: General: Somnolent but arousable. Redirectable Skin: Warm, dry, Head: Atraumatic Ears, nose, mouth and throat: airway patent Cardiovascular: Normal peripheral perfusion Respiratory: no respiratory distress Gastrointestinal: Non distended Musculoskeletal: No deformity, -No evidence of vascular compromise of right upper extremity Results & Data Results & Data Vital Signs (Past 12 Hours) Vital Signs Temp Pulse Pulse Resp BP BP Pulse Ox 06/22/24 22:00 80 12 96 06/22/24 21:01 122/85 06/22/24 21:01 122/85 06/22/24 21:00 77 0 L 06/22/24 20:03 72 0 L 96 06/22/24 20:00 126/78 06/22/24 20:00 126/78 06/22/24 20:00 126/78 06/22/24 20:00 06/22/24 20:00 06/22/24 19:57 72 0 L 97 06/22/24 19:09 81 17 95 06/22/24 17:00 137/73 06/22/24 17:00 137/73 06/22/24 17:00 92 H 95 06/22/24 16:17 37.4 C 06/22/24 16:13 06/22/24 16:06 82 06/22/24 16:03 86 94 06/22/24 16:00 119/80 02/20/25 15:57 78 96 06/22/24 15:29 06/22/24 15:03 84 95 06/22/24 15:00 120/83 06/22/24 14:00 118/87 06/22/24 14:00 89 20 95 06/22/24 13:03 89 21 95 06/22/24 13:00 128/92 06/22/24 12:15 94 H 21 95 06/22/24 12:00 133/91 06/22/24 11:27 86 0 L 97 06/22/24 11:10 36.8 C 92 H 18 138/87 98 Pulse Ox O2 Del Method O2 Del Method O2 Flow Rate 06/22/24 22:00 06/22/24 21:01 06/22/24 21:01 06/22/24 21:00 06/22/24 20:03 06/22/24 20:00 06/22/24 20:00 06/22/24 20:00 06/22/24 20:00 99 Room Air 06/22/24 20:00 Nasal Cannula 2 06/22/24 19:57 06/22/24 19:09 06/22/24 17:00 06/22/24 17:00 06/22/24 17:00 06/22/24 16:17 06/22/24 16:13 92 Room Air 06/22/24 16:06 06/22/24 16:03 06/22/24 16:00 06/22/24 15:57 06/22/24 15:29 95 Room Air 06/22/24 15:03 06/22/24 15:00 06/22/24 14:00 06/22/24 14:00 06/22/24 13:03 06/22/24 13:00 06/22/24 12:15 06/22/24 12:00 06/22/24 11:27 06/22/24 11:10 Room Air PG Care Time/CCT Total # of Minutes Spent Total Time Spent with Patient: Total time spent is greater than 50% in coordination of care (as documented) at patient's floor/unit and/or counseling patient: Coding Level of Care Code 83994 SUB INP/OBS CARE 3/50MIN Diagnoses DKA (diabetic ketoacidosis) E11.11 Diabetes mellitus complication detail: with coma Diabetes mellitus type: type 2 Influenza A J10.1 T2DM (type 2 diabetes mellitus) E11.9 Alcohol use disorder F19.90 (1) DKA (diabetic ketoacidosis) Diabetes mellitus complication detail: with coma Diabetes mellitus type: type 2 Qualified Code(s): E11.11 - Type 2 diabetes mellitus with ketoacidosis with coma
[2024-06-23 05:14] LABS: Hematocrit (blood only) 30.1 % (42.0-52.0); Hemoglobin 10.9 g/dl (14.0-18.0); Mean Corpuscular Hemoglobin 31.3 pg (25.0-34.0); Mean Corpuscular Hgb Conc 36.2 g/dL (32.0-36.0); Mean Corpuscular Volume 86.5 fL (80.0-100.0); Mean Platelet Volume 9.6 fL (9.4-12.4); Platelet Count 245 K/uL (130-400); RDW Coefficient of Variation 14.1 % (11.5-14.5); RDW Standard Deviation 44.4 fL (36.4-46.3); Red Blood Count 3.48 M/uL (4.70-6.10); White Blood Count 12.14 K/ul (4.8-10.8)
[2024-06-23 05:42] LABS: Albumin Level 2.8 gm/dl (3.4-5.0); BUN Creatinine Ratio 23.2 (10-20); Calcium 8.4 mg/dl (8.6-10.3); Creatinine Clr Calc Pharmacy 28.9 ml/min; Magnesium 2.5 mg/dl (1.7-2.4); Phosphorus 3.1 mg/dl (2.5-4.9); Potassium 3.5 mmol/L (3.5-5.1)
[2024-06-23 05:46] LABS: Basophils % (auto) 0.8 %; Eosinophils # (auto) 0.04 K/uL (0.00-0.50); Eosinophils % (auto) 0.3 %; Immature Granulocytes # (auto) 0.98 K/uL (0.01-0.20); Immature Granulocytes % (auto) 8.1 %; Lymphocytes # (auto) 0.65 K/uL (1.20-3.40); Lymphocytes % (auto) 5.4 %; Monocytes # (auto) 1.15 K/uL (0.11-0.59); Monocytes % (auto) 9.5 %; Neutrophils # (auto) 9.22 K/uL (1.40-6.50); Neutrophils % (auto) 75.9 %; Polychromasia 1+; Toxic Granulation 1+
--- NOTE | 2024-06-23 09:07 | Critical Care Progress Note ---
Date of Service June 23, 2024 Assessment & Plan (1) Lactic acidosis: Plan: Reason Critically Ill: 49-year-old male with acute renal failure and acute alcohol withdrawal necessitating IV sedative administration PLAN: Neuro: Acute encephalopathy: Likely metabolic: Recent DKA, influenza A, acute renal failure/azotemia: Resolved Alcohol dependency -Continue alcohol withdrawal severity scoring -Consider phenobarbital (1 dose given yesterday) Resp: Secondary bacterial pneumonia: Strep pneumo in the setting of influenza A -5-day course ceftriaxone Patient liberated from ventilator 06/20 CV: Tachycardia: Improved -Compensatory Fluids/Renal: High gap metabolic acidosis: Mild -Secondary to acute renal failure Acute kidney injury: Improving: Adequate urine output, -Unremarkable renal ultrasound -Nephrology consultation reviewed Discontinue Mims per nurse protocol ID: Possible secondary bacterial pneumonia complicated by influenza A -Ceftriaxone 5 days for possible community-acquired pneumonia GI/Nutrition: Diabetic diet Heme:Leukocytosis DVT prophylaxis: Heparin 5000 every 8 Endocrine: ICU hyperglycemia protocol Diabetic ketoacidosis: Resolved -Pharmacy glycemic control consult Vascular access: Peripheral IV Code Status: Full code Disposition: Stable for downgrade out of ICU (2) DKA (diabetic ketoacidosis): (3) Influenza A: (4) Alcohol use disorder: (5) Alcohol dependence: (6) Injury of brachial artery: Plan: Patient had IV placed presumptively by EMS. In emergency department there was an attempt to instill medication into right brachial IV however was immediately recognized that there was significant flashback and it was recognized that the IV was placed in the artery. The IV was removed and pressure held, the patient has not had any evidence of vascular compromise of the right hand. Admission and Anticipated Discharge Date Admission Date: June 19, 2024 Subjective No overnight events. Patient alert oriented pleasant. No significant c omplaints Physical Exam Physical Exam: General: Alert and oriented to time/place/location Skin: Warm, dry, Head: Atraumatic Ears, nose, mouth and throat: airway patent Cardiovascular: Normal peripheral perfusion Respiratory: no respiratory distress Gastrointestinal: Non distended Musculoskeletal: No deformity, -No evidence of vascular compromise of right upper extremity Results & Data Results & Data Vital Signs (Past 12 Hours) Vital Signs Temp Pulse Resp BP Pulse Ox Pulse Ox O2 Del Method 06/23/24 08:00 37.0 C 06/23/24 07:00 62 14 125/78 96 Room Air 06/23/24 07:00 Room Air 06/23/24 05:00 37.1 C 111/72 06/23/24 05:00 111/72 06/23/24 05:00 65 0 L 88 L 06/23/24 04:18 68 0 L 97 06/23/24 04:00 99 06/23/24 03:33 67 0 L 96 06/23/24 03:00 129/79 06/23/24 03:00 129/79 06/23/24 02:36 72 0 L 98 06/23/24 02:00 120/68 06/23/24 02:00 120/68 06/23/24 02:00 120/68 06/23/24 02:00 120/68 06/23/24 02:00 65 0 L 93 06/23/24 01:09 75 0 L 98 06/23/24 01:00 128/78 06/23/24 00:48 64 0 L 96 06/23/24 00:06 70 0 L 98 06/23/24 00:00 126/79 06/23/24 00:00 97 06/22/24 23:54 70 0 L 96 06/22/24 23:15 74 0 L 95 06/22/24 23:00 123/90 06/22/24 23:00 123/90 06/22/24 22:54 79 0 L 97 06/22/24 22:00 80 12 96 O2 Del Method 06/23/24 08:00 06/23/24 07:00 06/23/24 07:00 06/23/24 05:00 06/23/24 05:00 06/23/24 05:00 06/23/24 04:18 06/23/24 04:00 Room Air 06/23/24 03:33 06/23/24 03:00 06/23/24 03:00 06/23/24 02:36 06/23/24 02:00 06/23/24 02:00 06/23/24 02:00 06/23/24 02:00 06/23/24 02:00 06/23/24 01:09 06/23/24 01:00 06/23/24 00:48 06/23/24 00:06 06/23/24 00:00 06/23/24 00:00 Room Air 06/22/24 23:54 06/22/24 23:15 06/22/24 23:00 06/22/24 23:00 06/22/24 22:54 06/22/24 22:00 Critical Care Results & Data Vital Signs (Past 12 Hours) Vital Signs Temp Pulse Resp BP Pulse Ox Pulse Ox O2 Del Method 06/23/24 08:00 37.0 C 06/23/24 07:00 62 14 125/78 96 Room Air 06/23/24 07:00 Room Air 06/23/24 05:00 37.1 C 111/72 06/23/24 05:00 111/72 06/23/24 05:00 65 0 L 88 L 06/23/24 04:18 68 0 L 97 06/23/24 04:00 99 06/23/24 03:33 67 0 L 96 06/23/24 03:00 129/79 06/23/24 03:00 129/79 06/23/24 02:36 72 0 L 98 06/23/24 02:00 120/68 06/23/24 02:00 120/68 06/23/24 02:00 120/68 06/23/24 02:00 120/68 06/23/24 02:00 65 0 L 93 06/23/24 01:09 75 0 L 98 06/23/24 01:00 128/78 06/23/24 00:48 64 0 L 96 06/23/24 00:06 70 0 L 98 06/23/24 00:00 126/79 06/23/24 00:00 97 06/22/24 23:54 70 0 L 96 06/22/24 23:15 74 0 L 95 06/22/24 23:00 123/90 06/22/24 23:00 123/90 06/22/24 22:54 79 0 L 97 06/22/24 22:00 80 12 96 O2 Del Method 06/23/24 08:00 06/23/24 07:00 06/23/24 07:00 06/23/24 05:00 06/23/24 05:00 06/23/24 05:00 06/23/24 04:18 06/23/24 04:00 Room Air 06/23/24 03:33 06/23/24 03:00 06/23/24 03:00 06/23/24 02:36 06/23/24 02:00 06/23/24 02:00 06/23/24 02:00 06/23/24 02:00 06/23/24 02:00 06/23/24 01:09 06/23/24 01:00 06/23/24 00:48 06/23/24 00:06 06/23/24 00:00 06/23/24 00:00 Room Air 06/22/24 23:54 06/22/24 23:15 06/22/24 23:00 06/22/24 23:00 06/22/24 22:54 06/22/24 22:00 Lab & Micro Results (Past 24 Hours) RBC 3.48 M/uL (4.70-6.10) L 06/23/24 WBC 12.14 K/ul (4.8-10.8) H 06/23/24 Hgb 10.9 g/dl (14.0-18.0) L 06/23/24 Hct 30.1 % (42.0-52.0) L 06/23/24 MCV 86.5 fL (80.0-100.0) 06/23/24 MCH 31.3 pg (25.0-34.0) 06/23/24 MCHC 36.2 g/dL (32.0-36.0) H 06/23/24 RDW Standard Deviation 44.4 fL (36.4-46.3) 06/23/24 RDW Coefficient of Variation 14.1 % (11.5-14.5) 06/23/24 Plt Count 245 K/uL (130-400) 06/23/24 MPV 9.6 fL (9.4-12.4) 06/23/24 Neutrophils (%) (Auto) 75.9 % 06/23/24 Lymphocytes (%) (Auto) 5.4 % 06/23/24 Monocytes # (Auto) 1.15 K/uL (0.11-0.59) H 06/23/24 Eosinophils # (Auto) 0.04 K/uL (0.00-0.50) 06/23/24 Immature Granulocyte % (Auto) 8.1 % 06/23/24 Neutrophils # (Auto) 9.22 K/uL (1.40-6.50) H 06/23/24 Lymphocytes # (Auto) 0.65 K/uL (1.20-3.40) L 06/23/24 Monocytes # (Auto) 1.15 K/uL (0.11-0.59) H 06/23/24 Eosinophils # (Auto) 0.04 K/uL (0.00-0.50) 06/23/24 Basophils # (Auto) 0.10 K/uL (0.00-0.20) 06/23/24 Immature Granulocyte # (Auto) 0.98 K/uL (0.01-0.20) H 06/23 Hyposegmented Neutrophils 1+ 06/23/24 Polychromasia 1+ 06/23/24 Toxic Granulation 1+ 06/23/24 Na 141 mmol/L (136-145) 06/23/24 K 3.5 mmol/L (3.5-5.1) 06/23/24 Cl 106 mmol/L (98-107) 06/23/24 CO2 24 mmol/L (21-32) 06/23/24 Anion Gap 11 (3-11) 06/23/24 BUN 80 mg/dl (6-23) H 06/23/24 Creatinine 3.45 mg/dl (0.6-1.4) H 06/23/24 BUN/Creatinine Ratio 23.2 (10-20) H 06/23/24 Glu 148 mg/dl (70-99(Fasting)) H 06/23/24 Ca 8.4 mg/dl (8.6-10.3) L 06/23/24 Phosphorus Level 3.1 mg/dl (2.5-4.9) 06/23/24 Albumin 2.8 gm/dl (3.4-5.0) L 06/23/24 Mg 2.5 mg/dl (1.7-2.4) H 06/23/24 04:37 Calcium Level 8.4 mg/dl (8.6-10.3) L 06/23/24 04:37 Venous Blood pH 7.41 (7.36-7.41) 06/23/24 04:37 Microbiology 06/19/24 13:40 Gram Stain - Final Sputum,Vent Suction Sputum Culture - Final Streptococcus pneumoniae I & O Totals 24 Hours 06/22/24 06/23/24 06/24/24 06:59 06:59 06:59 Intake Total 1391.667 / 1391.667 890 / 890 Output Total 2336 / 2336 3253 / 3253 Balance -944.333 / -944.333 -2363 / -2363 Cumulative 06/19/24 10:54 thru 06/23/24 06:00 Intake Total 43069.708 Output Total 8749 Balance 3466.708 RT Ventilator Mngmt (Last Documented) Ventilator Ordered Settings Ventilator Support Mode CPAP 06/20/24 07:23 Respiratory Rate 14 06/23/24 07:00 Ventilator Tidal Volume 400 06/20/24 07:00 Setting Minute Ventilation 8.2 06/20/24 07:23 Ventilator Positive Pressure 5 06/19/24 20:00 Support Setting Positive End Expiratory 5 06/20/24 07:23 Pressure Fraction of Inspired Oxygen 2 06/20/24 08:30 Machine Comment Vt and RR changed 06/20/24 00:42 Ventilator - PT Measurements Respiratory Rate 14 Exhaled Tidal Volume 385 Minute Ventilation 8.2 Peak Inspiratory Airway 7 Pressure Mean Airway Pressure 20 Plateau Pressure 15 Respiratory Cycle Inspiratory: 1:4.0 Expiratory Ratio Inspiratory Phase Time 0.6 End-Tidal CO2 27 Static Lung Compliance 50.40 Dynamic Lung Compliance 192.50 Normal Static Lung Compliance 50.00 Patient Measurements Comment RT assisted Dr. Garg w/ intubation at this time. ETT 8.0mm placed 26cm@lip by Dr. Garg. Placement confirmed w/ +EzCAP color change, B/S present equal bilaterally, no sounds heard over stomach. Pt placed on vent settings per Dr. Garg. CXR and ABG pending. Moderate amount of creamy fernandez secretions suctioned from airway. Sputum sample collected per Dr. Garg. Coding Level of Care Code 48683 SUB INP/OBS CARE 2/35MIN Diagnoses Lactic acidosis E87.20 DKA (diabetic ketoacidosis) E11.11 Diabetes mellitus complication detail: with coma Diabetes mellitus type: type 2 Influenza A J10.1 Alcohol use disorder F19.90 Alcohol dependence F10.20 Injury of right brachial artery, initial encounter S45.101A Encounter type: initial encounter Laterality: right (2) DKA (diabetic ketoacidosis) Diabetes mellitus complication detail: with coma Diabetes mellitus type: type 2 Qualified Code(s): E11.11 - Type 2 diabetes mellitus with ketoacidosis with coma (6) Injury of brachial artery Encounter type: initial encounter Laterality: right Qualified Code(s): S45.101A - Unspecified injury of brachial artery, right side, initial encounter
[2024-06-23] MEDS: LANTUS PER UNIT CHARGE SC SCH (09:18)
--- NOTE | 2024-06-23 12:41 | Nephrology Progress Note ---
Date of Service June 23, 2024 Assessment & Plan (1) Acute kidney injury: (2) Altered mental status: (3) DKA (diabetic ketoacidosis): (4) Dehydration: (5) Alcohol use disorder: (6) Metabolic acidosis: (7) Proteinuria: Plan 49-year-old gentleman with baseline normal kidney function, baseline creatinine 1.1 mg/dl, history of poorly controlled type 2 diabetes and alcohol dependence, admitted with altered mental status, DKA, volume depletion, JAMES and multiple electrolyte abnormality. Urinalysis with proteinuria, glycosuria and 3+ ketone. No hematuria or UTI. Renal ultrasound otherwise unremarkable. Has been nonoliguric. Was profoundly hypotensive on admission requiring pressor support but blood pressure improved. On admission notable lab was notable for JAMES, creatinine 2.5 which rapidly worsen over last 2 days and creatinine now up to 4.5 this morning. JAMES most likely secondary to ATN with hypotension and volume depletion in the setting of DKA and poor p.o. intake. Kidney function improving electrolyte acceptable. BP fair. Decent --Continue to monitor kidney function, electrolyte and volume status, Ok to remove Mims catheter, monitor intake and output, encourage po intake. --expect kidney function o continue to improve. will sign off, no further nephrology follow-up needed at this time, advised to monitor kidney function as an outpatient and follow-up with PCP. Thank you for the consult, please contact if any further assistance needed. Admission and Anticipated Discharge Date Admission Date: June 19, 2024 Subjective Barrett was seen and evaluated this morning in ICU. He was awake, alert, not in any distress, vital signs stable. Kidney function continues to improve slowly, creatinine down to 3.5 and electrolyte acceptable. Decent urine output, net negative. Vital signs stable. Physical Exam Constitutional: WD/WN, vitals as above + ill appearing; no acute distress Neck: normal visual inspection Respiratory: Auscultation: + diminished lung sounds; no wheezes Cardiovascular: RRR, no murmur, no edema Musculoskeletal: Extremities: extremities normal to inspection Skin: no rashes Results & Data Vital Signs (Past 12 Hours) Vital Signs Temp Pulse Resp BP Pulse Ox Pulse Ox O2 Del Method 06/23/24 10:00 64 16 135/77 92 Room Air 06/23/24 09:03 87 15 113/76 95 Room Air 06/23/24 08:00 77 16 132/75 97 Room Air 06/23/24 08:00 37.0 C 06/23/24 07:00 62 14 125/78 96 Room Air 06/23/24 07:00 Room Air 06/23/24 05:00 37.1 C 111/72 06/23/24 05:00 111/72 06/23/24 05:00 65 0 L 88 L 06/23/24 04:18 68 0 L 97 06/23/24 04:00 99 06/23/24 03:33 67 0 L 96 06/23/24 03:00 129/79 06/23/24 03:00 129/79 06/23/24 02:36 72 0 L 98 06/23/24 02:00 120/68 06/23/24 02:00 120/68 06/23/24 02:00 120/68 06/23/24 02:00 120/68 06/23/24 02:00 65 0 L 93 06/23/24 01:09 75 0 L 98 06/23/24 01:00 128/78 06/23/24 00:48 64 0 L 96 O2 Del Method 06/23/24 10:00 06/23/24 09:03 06/23/24 08:00 06/23/24 08:00 06/23/24 07:00 06/23/24 07:00 06/23/24 05:00 06/23/24 05:00 06/23/24 05:00 06/23/24 04:18 06/23/24 04:00 Room Air 06/23/24 03:33 06/23/24 03:00 06/23/24 03:00 06/23/24 02:36 06/23/24 02:00 06/23/24 02:00 06/23/24 02:00 06/23/24 02:00 06/23/24 02:00 06/23/24 01:09 06/23/24 01:00 06/23/24 00:48 PG Care Time/CCT Total # of Minutes Spent Total Time Spent with Patient: Total time spent is greater than 50% in coordination of care (as documented) at patient's floor/unit and/or counseling patient: Coding Level of Care Code 27692 SUB INP/OBS CARE 2/35MIN Diagnoses Acute kidney injury N17.9 Altered mental status R40.1 Altered mental status type: stupor DKA (diabetic ketoacidosis) E11.11 Diabetes mellitus complication detail: with coma Diabetes mellitus type: type 2 Dehydration E86.0 Alcohol use disorder F19.90 Metabolic acidosis E87.20 Proteinuria R80.9 (2) Altered mental status Altered mental status type: stupor Qualified Code(s): R40.1 - Stupor (3) DKA (diabetic ketoacidosis) Diabetes mellitus complication detail: with coma Diabetes mellitus type: type 2 Qualified Code(s): E11.11 - Type 2 diabetes mellitus with ketoacidosis with coma
--- NOTE | 2024-06-23 13:10 | Pharmacy Report ---
Pharmacy Glycemic Short Note 2 - Date of Service June 23, 2024 - Glycemic Short BSG Results (Last 24 hours): 06/22/24 06/22/24 06/23/24 16:15 20:18 00:34 Glucose POC Glucose 165 H 219 H 129 H 06/23/24 06/23/24 06/23/24 04:14 04:37 07:16 Glucose 148 H POC Glucose 153 H 125 H 06/23/24 11:23 Glucose POC Glucose 206 H OUTPATIENT ANTIDIABETIC REGIMEN: * Semaglutide 0.5 mg SC weekly (per provider note- patient has not taken in many months * Insulin- no fill history/med rec available but per RN possibly takes 70/30. Provider note indicates patient had been rationing for several weeks due to cost * A1c: 9.2% 06/20/24 ASSESSMENT: 06/23: * BSGs yesterday [phone] mg/dL. Fasting 125 mg/dL this morning. Patient received 20 units of prandial/correctional and 28 units of basal. * Will schedule 13 units BID of basal, this is weight based stress of 2. SCr is downtrending. * Patient is now A&O and stable for downgrade out of ICU. Diet is being upgraded with dinner. Patient ate 45 grams of CHO with lunch. Will continue current novolog parameters but may need adjusted now that patient is eating. * Overnight checks 06/22: * BSGs yesterday were [phone] mg/dL and fasting was 179 mg/dL this morning. Patient received a total of 29units of insulin, 20 of which was basal. * Scr did down trend today but given it is still significantly elevated at 4.47 and patient still with no appreciable po intake, will conservatively increase total lantus dosing today. 06/21 * Patient transitioned off of insulin infusion yesterday with some rebound- received 7 unit IV dose and an additional 15 units of lantus yesterday with downward trend overnight * BSG this AM 136 mg/dL- will trial 13 units BID of basal (weight based stress of 2)- will need to be cautious d/t increasing renal function * Patient with limited intake although clears ordered- keeping BSG checks as q4H for now * Novolog parameters were tightened last night- will continue with same for now 06/20 * 49 yo male with T2DM presenting with respiratory failure in the setting of influenza A, JAMES, and HHS (noncompliance with home regimen). Patient also at risk for alcohol withdrawal as typically drinks ~8 alcoholic drinks a day and last drink was 2 days prior to admission. * Patient was intubated upon and admission but was successfully extubated this morning. Patient is still somewhat lethargic/confused per RN and has not yet been cleared for PO intake due to aspiration concerns. * Insulin infusion was started on admission and continued at very high rates (~18 units/hr) overnight. BSGs downtrended this morning and at that time, the insulin infusion and dextrose containing fluids were held per protocol. Plan was discussed on multidisciplinary rounds and as AG and CO2 normalized, will attempt to fully transition off the drip and start basal/bolus insulin. I anticipate this transition could be challenging given previously very high drip rate requirements prior to d/c, unknown outpatient insulin needs, and tenuous NPO status. Will utilize weight based/moderate stress dosing as a conservative starting point. PLAN FOR INPATIENT GLYCEMIC CONTROL: * Hold outpatient oral diabetes medications * Basal insulin * Lantus 13 units SQ BID * Bolus insulin * NovoLog per scale ACHS or Q4hrs while NPO * Goal Range: Low 110 mg/dL - High 140 mg/dL * Correction Factor: 15 mg/dL/unit * Nutritional / Prandial insulin per carb ratio of 1 unit per 7 grams CHO consumed
[2024-06-23] MEDS: INSULIN ASPART PER UNIT CHARGE SC SCH (16:46)
--- NOTE | 2024-06-23 23:49 | Hospitalist Progress Note ---
Date of Service June 23, 2024 Assessment & Plan (1) DKA (diabetic ketoacidosis): (2) Influenza A: (3) T2DM (type 2 diabetes mellitus): (4) Alcohol use disorder: Plan 49-year-old male with history of type 2 diabetes recently rationing insulin due to cost, alcohol abuse with high risk for withdrawal who presents with acute respiratory failure due to flu A with possible superimposed pneumonia, suspected HHS, and potential early alcohol withdrawal with last drink 2 days prior due to illness. In the ER is profoundly acidotic, was initially observed for improvement following bicarb infusions however likely worsened and with additional concern for alcohol withdrawal, persistent acidosis, and respiratory failure was intubated and admitted to the ICU Acute respiratory failure Influenza A+, suspected superimposed pneumonia -Flu A positive. Tamiflu 75 mg x 1 then 30 twice daily if able to take p.o. or OG -For secondary pneumonia suspected due to x-ray opacities, leukocytosis with left shift cefepime/vancomycin. MRSA nare pending. acidosis is resolving JAMES, prerenal - Baseline creatinine 1.1. Creatinine now resolving at 3.4 currently with metabolic acidosis Alcohol abuse Hemoglobin 14.7, no evidence of GI bleed. Alcohol is negative on admission Per collateral from family drinks 8 large can alcoholic beverages "hard Mountain Dew "like drinks, when drinking out with friends will drink up to an additional half 5th of liquor, otherwise 1/5 or handle last around a week. No recent alcohol free days High risk for withdrawal Patient subsequently on reevaluation was intubated, switched to propofol for sedation not showing signs of withdrawal currently HHS Type II diabetic, no history of HHS/DKA Insulin gtt. adjust per protocol, goal BSG decrease of no more than around 150-200/h Urine ketones are present, critical metabolic acidosis, pseudohyponatremia, potassium is 5.0 Per last note review patient had been on Ozempic however on talking to family he is not taking this. He switch back to [id number] Novolin 70/30 which he has been rationing out due to cost. anion gap closed. continue aggressive fluids. Right arterial IV stick Patient did have a right AC IV in place during resuscitation. During evaluation and resuscitation was noted to have pulsatile flow. On further evaluation pulsatile flow into syringe was confirmed consistent with serial IV. IV was subsequently removed with pressure applied for 5 minutes and then wrapped in a dressing. Medications discussed repeated through IV or IV fluids 2 doses of bicarb DVT prophylaxis: Heparin due to renal dysfunction CODE STATUS: Full code. Surrogate decision maker would be patient's mother. He has no spouse or children Disposition: ICU (2) Influenza A: (3) T2DM (type 2 diabetes mellitus): (4) Alcohol use disorder will downgrade form ICU. As patient has been bed confined, will obtain PT/OT evals Admission and Anticipated Discharge Date Admission Date: June 19, 2024 Subjective Patient reports no new symptoms. Physical Exam Physical Exam: General: Awake and alert Skin: Warm, dry, Head: Atraumatic Ears, nose, mouth and throat: airway patent Cardiovascular: Normal peripheral perfusion Respiratory: no respiratory distress Gastrointestinal: Non distended Musculoskeletal: No deformity, -No evidence of vascular compromise of right upper extremity Results & Data Results & Data Vital Signs (Past 12 Hours) Vital Signs Temp Pulse Pulse Resp BP BP Pulse Ox 06/23/24 23:31 06/23/24 20:00 06/23/24 19:19 36.8 C 72 16 126/82 94 06/23/24 16:00 61 15 141/80 H 94 06/23/24 16:00 36.8 C 06/23/24 15:00 82 16 127/74 95 06/23/24 14:00 73 16 108/69 92 06/23/24 13:00 84 18 99/75 L 92 06/23/24 12:00 80 16 107/69 92 06/23/24 12:00 37.0 C O2 Del Method 06/23/24 23:31 Room Air 06/23/24 20:00 Room Air 06/23/24 19:19 Room Air 06/23/24 16:00 Room Air 06/23/24 16:00 06/23/24 15:00 Room Air 06/23/24 14:00 Room Air 06/23/24 13:00 Room Air 06/23/24 12:00 Room Air 06/23/24 12:00 PG Care Time/CCT Total # of Minutes Spent Total Time Spent with Patient: Total time spent is greater than 50% in coordination of care (as documented) at patient's floor/unit and/or counseling patient: Coding Level of Care Code 20128 SUB INP/OBS CARE 3/50MIN Diagnoses DKA (diabetic ketoacidosis) E11.11 Diabetes mellitus complication detail: with coma Diabetes mellitus type: type 2 Influenza A J10.1 T2DM (type 2 diabetes mellitus) E11.9 Alcohol use disorder F19.90 (1) DKA (diabetic ketoacidosis) Diabetes mellitus complication detail: with coma Diabetes mellitus type: type 2 Qualified Code(s): E11.11 - Type 2 diabetes mellitus with ketoacidosis with coma
[2024-06-24] MEDS: INSULIN ASPART PER UNIT CHARGE SC SCH (00:11)
[2024-06-24 07:42] LABS: Hematocrit (blood only) 32.5 % (42.0-52.0); Hemoglobin 11.7 g/dl (14.0-18.0); Mean Corpuscular Hemoglobin 30.7 pg (25.0-34.0); Mean Corpuscular Volume 85.3 fL (80.0-100.0); Mean Platelet Volume 9.1 fL (9.4-12.4); Platelet Count 318 K/uL (130-400); RDW Coefficient of Variation 13.6 % (11.5-14.5); RDW Standard Deviation 42.5 fL (36.4-46.3); Red Blood Count 3.81 M/uL (4.70-6.10); White Blood Count 9.42 K/ul (4.8-10.8)
[2024-06-24 07:58] LABS: Albumin Level 2.7 gm/dl (3.4-5.0); Calcium 8.5 mg/dl (8.6-10.3); Creatinine Clr Calc Pharmacy 43.8 ml/min; Phosphorus 3.4 mg/dl (2.5-4.9)
[2024-06-24] MEDS: POTASSIUM CHLORIDE CRTAB 20 MEQ TABCR PO STA (12:03)
[2024-06-24] MEDS ORDERED: ALBUTEROL HFA 8 GM INHALER INH PRN (12:31)
[2024-06-24] MEDS: POTASSIUM CHLORIDE CRTAB 20 MEQ TABCR PO SCH (14:13)
[2024-06-24] MEDS: LANTUS PER UNIT CHARGE SC SCH (21:51)
--- NOTE | 2024-06-24 23:36 | Hospitalist Progress Note ---
Date of Service June 24, 2024 Assessment & Plan (1) DKA (diabetic ketoacidosis): (2) Influenza A: (3) T2DM (type 2 diabetes mellitus): (4) Alcohol use disorder: Plan 49-year-old male with history of type 2 diabetes recently rationing insulin due to cost, alcohol abuse with high risk for withdrawal who presents with acute respiratory failure due to flu A with possible superimposed pneumonia, suspected HHS, and potential early alcohol withdrawal with last drink 2 days prior due to illness. In the ER is profoundly acidotic, was initially observed for improvement following bicarb infusions however likely worsened and with additional concern for alcohol withdrawal, persistent acidosis, and respiratory failure was intubated and admitted to the ICU Acute respiratory failure Influenza A+, suspected superimposed pneumonia -Flu A positive. Tamiflu 75 mg x 1 then 30 twice daily if able to take p.o. or OG -For secondary pneumonia suspected due to x-ray opacities, leukocytosis with left shift cefepime/vancomycin. MRSA nare pending. acidosis is resolving JAMES, prerenal - Baseline creatinine 1.1. Creatinine now resolving at 2 resolviong metabolic acidosis Alcohol abuse Hemoglobin 14.7, no evidence of GI bleed. Alcohol is negative on admission Per collateral from family drinks 8 large can alcoholic beverages "hard Mountain Dew "like drinks, when drinking out with friends will drink up to an additional half 5th of liquor, otherwise 1/5 or handle last around a week. No recent alcohol free days High risk for withdrawal Patient subsequently on reevaluation was intubated, switched to propofol for sedation not showing signs of withdrawal currently HHS Type II diabetic, no history of HHS/DKA Insulin gtt. adjust per protocol, goal BSG decrease of no more than around 150-200/h Urine ketones are present, critical metabolic acidosis, pseudohyponatremia, potassium is 5.0 Per last note review patient had been on Ozempic however on talking to family he is not taking this. He switch back to [id number] Novolin 70/30 which he has been rationing out due to cost. anion gap closed. continue aggressive fluids. Right arterial IV stick Patient did have a right AC IV in place during resuscitation. During evaluation and resuscitation was noted to have pulsatile flow. On further evaluation pulsatile flow into syringe was confirmed consistent with serial IV. IV was subsequently removed with pressure applied for 5 minutes and then wrapped in a dressing. Medications discussed repeated through IV or IV fluids 2 doses of bicarb DVT prophylaxis: Heparin due to renal dysfunction CODE STATUS: Full code. Surrogate decision maker would be patient's mother. He has no spouse or children Disposition: ICU (2) Influenza A: (3) T2DM (type 2 diabetes mellitus): (4) Alcohol use disorder Admission and Anticipated Discharge Date Admission Date: June 19, 2024 Subjective 49 yo male reports no new symptoms. Patient states he is feeling stronger. Physical Exam Physical Exam: General: Awake and alert Skin: Warm, dry, Head: Atraumatic Ears, nose, mouth and throat: airway patent Cardiovascular: Normal peripheral perfusion Respiratory: no respiratory distress Gastrointestinal: Non distended Musculoskeletal: No deformity, -No evidence of vascular compromise of right upper extremity Results & Data Results & Data Vital Signs (Past 12 Hours) Vital Signs Temp Pulse Pulse Pulse Resp BP BP 06/24/24 22:38 63 06/24/24 20:00 06/24/24 19:00 36.8 C 65 20 135/81 06/24/24 16:00 37.1 C 81 17 114/74 06/24/24 15:38 36.9 C 36 L 21 136/80 Pulse Ox O2 Del Method 06/24/24 22:38 06/24/24 20:00 Room Air 06/24/24 19:00 96 Room Air 06/24/24 16:00 99 Room Air 06/24/24 15:38 95 Room Air PG Care Time/CCT Total # of Minutes Spent Total Time Spent with Patient: Total time spent is greater than 50% in coordination of care (as documented) at patient's floor/unit and/or counseling patient: Coding Level of Care Code 00548 SUB INP/OBS CARE 3/50MIN Diagnoses DKA (diabetic ketoacidosis) E11.11 Diabetes mellitus complication detail: with coma Diabetes mellitus type: type 2 Influenza A J10.1 T2DM (type 2 diabetes mellitus) E11.9 Alcohol use disorder F19.90 (1) DKA (diabetic ketoacidosis) Diabetes mellitus complication detail: with coma Diabetes mellitus type: type 2 Qualified Code(s): E11.11 - Type 2 diabetes mellitus with ketoacidosis with coma
[2024-06-25] MEDS: INSULIN ASPART PER UNIT CHARGE SC SCH (00:20)
[2024-06-25 07:25] LABS: Hematocrit (blood only) 31.3 % (42.0-52.0); Hemoglobin 11.2 g/dl (14.0-18.0); Mean Corpuscular Hemoglobin 31.2 pg (25.0-34.0); Mean Corpuscular Hgb Conc 35.8 g/dL (32.0-36.0); Mean Corpuscular Volume 87.2 fL (80.0-100.0); Mean Platelet Volume 9.1 fL (9.4-12.4); Platelet Count 357 K/uL (130-400); RDW Coefficient of Variation 13.4 % (11.5-14.5); RDW Standard Deviation 42.8 fL (36.4-46.3); Red Blood Count 3.59 M/uL (4.70-6.10); White Blood Count 11.84 K/ul (4.8-10.8)
[2024-06-25 07:50] LABS: BUN Creatinine Ratio 34.5 (10-20); Calcium 8.2 mg/dl (8.6-10.3); Creatinine Clr Calc Pharmacy 59.8 ml/min; Potassium 3.1 mmol/L (3.5-5.1)
--- NOTE | 2024-06-25 12:33 | Ultrasound Report ---
EXAM: US Right Upper Extremity Non-Vascular Limited INDICATION: Swelling and bruising TECHNIQUE: Sonographic images labeled right bicep point of interest and right antecubital fossa provided. COMPARISON: No relevant prior studies available. FINDINGS: No sonographic abnormality in the area of skin. No abnormal shadowing or fluid. IMPRESSION: No sonographic abnormality in the area of the right upper extremity scan. ACT 112: Negative or not required by law. Electronically signed by Guadalupe Powell 06-25-2024 12:29 PM
[2024-06-25] MEDS: POTASSIUM CHLORIDE CRTAB 20 MEQ TABCR PO STA (15:46)
[2024-06-25] MEDS: POTASSIUM CHLORIDE CRTAB 20 MEQ TABCR PO ONE (21:24)
--- NOTE | 2024-06-25 22:46 | Hospitalist Progress Note ---
Date of Service June 25, 2024 Assessment & Plan (1) DKA (diabetic ketoacidosis): (2) Influenza A: (3) T2DM (type 2 diabetes mellitus): (4) Alcohol use disorder: Plan 49-year-old male with history of type 2 diabetes recently rationing insulin due to cost, alcohol abuse with high risk for withdrawal who presents with acute respiratory failure due to flu A with possible superimposed pneumonia, suspected HHS, and potential early alcohol withdrawal with last drink 2 days prior due to illness. In the ER is profoundly acidotic, was initially observed for improvement following bicarb infusions however likely worsened and with additional concern for alcohol withdrawal, persistent acidosis, and respiratory failure was intubated and admitted to the ICU Acute respiratory failure Influenza A+, suspected superimposed pneumonia -Flu A positive. Tamiflu 75 mg x 1 then 30 twice daily if able to take p.o. or OG -For secondary pneumonia suspected due to x-ray opacities, leukocytosis with left shift cefepime/vancomycin. MRSA nare pending. acidosis is resolving JAMES, prerenal/ hypokalemia - Baseline creatinine 1.1. Creatinine now resolving at 2 resolviong metabolic acidosis Due to hypokalemia, patient will remain hospitalized as he has required 80- 100meq of potassium as day. This should balance out once his creatinine normalizes. Alcohol abuse Hemoglobin 14.7, no evidence of GI bleed. Alcohol is negative on admission Per collateral from family drinks 8 large can alcoholic beverages "hard Mountain Dew "like drinks, when drinking out with friends will drink up to an additional half 5th of liquor, otherwise 1/5 or handle last around a week. No recent alcohol free days High risk for withdrawal Patient subsequently on reevaluation was intubated, switched to propofol for sedation not showing signs of withdrawal currently HHS Type II diabetic, no history of HHS/DKA Insulin gtt. adjust per protocol, goal BSG decrease of no more than around 150-200/h Urine ketones are present, critical metabolic acidosis, pseudohyponatremia, potassium is 5.0 Per last note review patient had been on Ozempic however on talking to family he is not taking this. He switch back to [id number] Novolin 70/30 which he has been rationing out due to cost. anion gap closed. continue aggressive fluids. Right arterial IV stick Patient did have a right AC IV in place during resuscitation. During evaluation and resuscitation was noted to have pulsatile flow. On further evaluation pulsatile flow into syringe was confirmed consistent with serial IV. IV was subsequently removed with pressure applied for 5 minutes and then wrapped in a dressing. Medications discussed repeated through IV or IV fluids 2 doses of bicarb DVT prophylaxis: Heparin due to renal dysfunction CODE STATUS: Full code. Surrogate decision maker would be patient's mother. He has no spouse or children Disposition: discharge home (2) Influenza A: (3) T2DM (type 2 diabetes mellitus): (4) Alcohol use disorder Admission and Anticipated Discharge Date Admission Date: June 19, 2024 Subjective 49 yo male reports main complaint is pain in his right upper extremity. Physical Exam Physical Exam: General: Awake and alert Skin: Warm, dry, Head: Atraumatic Ears, nose, mouth and throat: airway patent Cardiovascular: Normal peripheral perfusion Respiratory: no respiratory distress Gastrointestinal: Non distended Musculoskeletal: No deformity, -No evidence of vascular compromise of right upper extremity Results & Data Results & Data Vital Signs (Past 12 Hours) Vital Signs Temp Pulse Pulse Resp BP BP Pulse Ox 06/25/24 20:00 06/25/24 19:25 37 C 89 18 104/69 96 06/25/24 15:24 36.9 C 67 18 115/75 97 06/25/24 15:11 66 06/25/24 11:38 36.9 C 82 18 114/71 95 O2 Del Method 06/25/24 20:00 Room Air 06/25/24 19:25 Room Air 06/25/24 15:24 Room Air 06/25/24 15:11 06/25/24 11:38 Room Air PG Care Time/CCT Total # of Minutes Spent Total Time Spent with Patient: Total time spent is greater than 50% in coordination of care (as documented) at patient's floor/unit and/or counseling patient: Coding Level of Care Code 77340 SUB INP/OBS CARE 3/50MIN Diagnoses DKA (diabetic ketoacidosis) E11.11 Diabetes mellitus complication detail: with coma Diabetes mellitus type: type 2 Influenza A J10.1 T2DM (type 2 diabetes mellitus) E11.9 Alcohol use disorder F19.90 (1) DKA (diabetic ketoacidosis) Diabetes mellitus complication detail: with coma Diabetes mellitus type: type 2 Qualified Code(s): E11.11 - Type 2 diabetes mellitus with ketoacidosis with coma
[2024-06-26 08:10] LABS: Hematocrit (blood only) 32.6 % (42.0-52.0); Hemoglobin 11.6 g/dl (14.0-18.0); Mean Corpuscular Hemoglobin 31.4 pg (25.0-34.0); Mean Corpuscular Hgb Conc 35.6 g/dL (32.0-36.0); Mean Corpuscular Volume 88.3 fL (80.0-100.0); Mean Platelet Volume 9.1 fL (9.4-12.4); Platelet Count 391 K/uL (130-400); RDW Coefficient of Variation 13.2 % (11.5-14.5); RDW Standard Deviation 42.6 fL (36.4-46.3); Red Blood Count 3.69 M/uL (4.70-6.10); White Blood Count 11.64 K/ul (4.8-10.8)
[2024-06-26] MEDS: ACETAMINOPHEN 325 MG TAB PO PRN (08:20)
--- NOTE | 2024-06-26 09:19 | Pharmacy Report ---
Pharmacy Glycemic Short Note 2 - Date of Service June 26, 2024 - Glycemic Short BSG Results (Last 24 hours): 06/25/24 06/25/24 06/25/24 11:26 16:27 20:21 POC Glucose 163 H 73 170 H 06/26/24 06/26/24 06/26/24 00:45 04:06 07:11 POC Glucose 113 H 115 H 161 H OUTPATIENT ANTIDIABETIC REGIMEN: * Semaglutide 0.5 mg SC weekly (per provider note- patient has not taken in many months * Insulin- no fill history/med rec available but per RN possibly takes 70/30. Provider note indicates patient had been rationing for several weeks due to cost HbA1c: 9.2% 06/20/24 ASSESSMENT: 06/26: * Blood sugars have been reasonably well-controlled over past 48 hours (ranging 73-170 mg/dL yesterday) * Will slightly loosen CF today in light of 73 mg/dL at dinner * Received 63 units of insulin yesterday (~50/50 basal/bolus split) * Fasting blood sugar of 161 mg/dL - basal dose increased yesterday 06/23: * BSGs yesterday [phone] mg/dL. Fasting 125 mg/dL this morning. Patient received 20 units of prandial/correctional and 28 units of basal. * Will schedule 13 units BID of basal, this is weight based stress of 2. SCr is downtrending. * Patient is now A&O and stable for downgrade out of ICU. Diet is being upgraded with dinner. Patient ate 45 grams of CHO with lunch. Will continue current novolog parameters but may need adjusted now that patient is eating. * Overnight checks 06/22: * BSGs yesterday were [phone] mg/dL and fasting was 179 mg/dL this morning. Patient received a total of 29units of insulin, 20 of which was basal. * Scr did down trend today but given it is still significantly elevated at 4.47 and patient still with no appreciable po intake, will conservatively increase total lantus dosing today. 06/21 * Patient transitioned off of insulin infusion yesterday with some rebound- received 7 unit IV dose and an additional 15 units of lantus yesterday with downward trend overnight * BSG this AM 136 mg/dL- will trial 13 units BID of basal (weight based stress of 2)- will need to be cautious d/t increasing renal function * Patient with limited intake although clears ordered- keeping BSG checks as q4H for now * Novolog parameters were tightened last night- will continue with same for now Background: * 49 yo male with T2DM presenting with respiratory failure in the setting of influenza A, JAMES, and HHS (noncompliance with home regimen). Patient also at risk for alcohol withdrawal as typically drinks ~8 alcoholic drinks a day and last drink was 2 days prior to admission. * Patient was intubated upon and admission but was successfully extubated this morning. Patient is still somewhat lethargic/confused per RN and has not yet been cleared for PO intake due to aspiration concerns. * Insulin infusion was started on admission and continued at very high rates (~18 units/hr) overnight. BSGs downtrended this morning and at that time, the insulin infusion and dextrose containing fluids were held per protocol. Plan was discussed on multidisciplinary rounds and as AG and CO2 normalized, will attempt to fully transition off the drip and start basal/bolus insulin. I anticipate this transition could be challenging given previously very high drip rate requirements prior to d/c, unknown outpatient insulin needs, and tenuous NPO status. Will utilize weight based/moderate stress dosing as a conservative starting point. PLAN FOR INPATIENT GLYCEMIC CONTROL: * Basal insulin * Lantus 15 units SQ BID * Bolus insulin * NovoLog per scale ACHS or Q4hrs while NPO * Goal Range: Low 110 mg/dL - High 140 mg/dL * Correction Factor: 25 mg/dL/unit * Nutritional / Prandial insulin per carb ratio of 1 unit per 5 grams CHO consumed
[2024-06-26 09:23] LABS: BUN Creatinine Ratio 29.6 (10-20); Calcium 8.4 mg/dl (8.6-10.3); Creatinine Clr Calc Pharmacy 67.6 ml/min; Potassium 4.2 mmol/L (3.5-5.1)
[2024-06-26 10:51] VITALS: TEMP 98.4
[2024-06-26 16:01] VITALS: PULSE 81; RESP 18; O2SAT 97
--- NOTE | 2024-06-26 17:32 | Discharge Summary ---
Discharge Summary Date of Service June 26, 2024 Principal Dx & Hospital Course #1 = Principal Diagnosis (1) DKA (diabetic ketoacidosis): (2) Influenza A: (3) Streptococcal pneumonia: (4) Alcohol use disorder: (5) Acute kidney injury: Plan 49-year-old male with history of type 2 diabetes, alcohol use disorder who presents with severe acute metabolic encephalopathy from DKA and EtOH withdrawal as well as acute respiratory failure with hypoxia due to flu A with superimposed pneumonia. He was intubated for airway protection on arrival for profound acidosis with a pH of 6.7, HCO3 of 6, and AG of 35. His glucose on arrival was over 1000 #Acute respiratory failure with hypoxia/VDRF/Influenza A/Strep pneumo PNA/Severe sepsis with Septic shock/Acute metabolic encephalopathy-Flu A positive on a dmission, sputum cx grew Strep pneumo. Was treated with IV ceftriaxone x 5 day course. Blood cxs no growth. He never received Tamiflu (likely inadvertently but not clear). He was on vasopressors and weaned off. Was on vent for 2 days and then extubated. Weaned to room air after extubated. Much improved overall. Encephalopathy profound from DKA and some from EtOH withdrawal-was treated with ativan and phenobarbital With mild cough on day of discharge #Diabetes mellitus/DKA-always diagnosed as type II but may be OLGA/ type I given DKA. He was not using his insulin because he wasn't eating much after he became sick with Influenza and PNA. Previously on ozempic in 2023 but has not used in a while. Was using NPH 70/30 bid but not consistently. Glucose> 1000 on admission with pH 6.7, AG 35, severe acidosis. Was started on insulin gtt and given IVFs, lytes replaced as needed. -Now stable on Lantus 30 units daily and Novolog-continue on discharge -Seen by natural resources extension educator and given education, has Valeri CGM -Recommend referral to Endocrinology as outpt for further eval and treatment #JAMES/Acute liver injury- - Baseline creatinine 1.1 and peaked at 4.5, secondary to ATN from septic shock, improved with BP support and IVFs. Nephrology consult appreciated Hypokalemia treated with replacement. 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 LFTs elevated and trended downward -f/u CMP in 1 week with PCP -ok to resume home statin on discharge #Alcohol use disorder with withdrawalAlcohol is negative on admission Per collateral from family drinks 8 large can alcoholic beverages and when drinking with friends will drink up to an additional half 5th of liquor, otherwise 1/5 or handle No recent alcohol free days. Treated as above, resolved Encourage cessation, declines counseling or rehab placement #Right upper arm arterial IV stick Patient did have a right AC IV in place during resuscitation. During evaluation and resuscitation was noted to have pulsatile flow. IV was subsequently removed with pressure applied for 5 minutes and then wrapped in a dressing. Had some bruising in biceps area and triceps area on day of discharge but no cord palpable, Doppler RUE neg and soft tissue US negative 06/25. Tylenol prn pain an dobserve for cellulitis signs/symptoms after discharge DVT prophylaxis: Heparin Disposition: discharge home Notes For Next Care Provider f/u CMP in 1 week Recommend referral to Endocrinology Medication Changes From Visit Added Lantus and Humalog Admission HPI Per Admitting Provider Barrett Sprague is a 49-year-old male with past medical history of type II DM, alcohol use disorder with 4-5 drinks per day generally complaint of on prior counseling visit as outpatient Leukocytosis 24.9 with left shift VBG pH less than 7, pCO2 52, HCO3 not able to be performed Bicarb 7 Anion gap [id number] 22 BSG greater than 700 Lactate 4.1 Total bilirubin normal, AST/ALT/alk phos 131/70/157 suspected shock liver Ammonia 128 High sensitive troponin 36.1 UA is not infected appearing, granular casts with profound volume contraction Flu positive Patient unable to give history due to mental status. Collateral collected from family. Was otherwise well until approximately 1 day ago when he developed chills, cough, and bodyaches. Patient is a diabetic and has been rationing his insulin for several weeks due to cost. No longer takes Ozempic, has not in many months. Also drinks round 8 large hard alcohol beverages a day (Mountain Dew hard to drink type beverages) and in addition to liquor. 1/5 to a handle of liquor might last around a week, but when out with a friend will drink around to half liquor a night "and still be going for more ". No alcohol free days and recent memory of family, although patient last drink was around 2 days ago due to feeling acutely ill. No history of heart disease or lung disease No known history of medication allergies Family is not aware of any recreational drug use Full code. Surrogate decision maker would be patient's mother. He has no living children or spouse Discharge Exam Constitutional WD/WN, vitals as above Eyes PERRL, conjunctivae normal, anicteric sclerae ENMT external ear and nose normal, oropharynx normal Respiratory normal respiratory effort, lungs clear to auscultation Cardiovascular RRR, no murmur, no edema Gastrointestinal (Abdomen) normal bowel sounds, soft, nontender, no hepatosplenomegaly Skin right upper arm with bruising on biceps and triceps region, no erythema, no palpable cord, no induration or fluctuance, +TTP Psychiatric A+Ox3, euthymic affect Discharge Plan Discharge Items Patient Disposition: Home - Self-Care Reason For Visit: PNA, FLU, HHS, AHRF Discharge Diagnosis: Influenza A Streptococcus pneumoniae pneumonia Ventilator dependent respiratory failure Acute kidney injury Acute liver injury Diabetic ketoacidosis/hyperosmolar hyperglycemic state Alcohol use disorder Condition on Discharge: Good Activity: Per Instructions section Lifting: Gradually increase as tolerated Bathing: No limitations Exercise/Sports: Gradually increase as tolerated Driving/Machine Use: No limitations Non-emergency contact: Primary Care Provider Call non-emergency contact if: you have any medication questions and your symptoms worsen Follow-up/Referrals: Benton Anaya MD [Physician] - (Please call to schedule a new patient appointment with endocrinology for your diabetes.) Alec Rosenberg DO [Primary Care Provider] - 07/03/24 11:30 am (Follow-up within 1 to 2 weeks.) Diet: Carb Count or DM1 Addtl Attending Provider Instructions: You were admitted with severe acidosis from elevated blood sugars as well as sepsis from pneumonia and influenza A. You were on a ventilator temporarily for respiratory support. You were treated with antibiotics for your pneumonia and had improvement. He also had kidney and liver injury which are improving. Please have blood work to check your liver enzymes and kidney function in 1 week with your PCP. For your diabetes, it is very important that you always take the long-acting and short acting insulin as prescribed to prevent acidosis in the future. It is recommended that you follow-up with an sack cleaning hand as you may in fact have type 1 diabetes. You may need to have special testing to further determine this. It is very important also that you abstain from or significantly cut back on your alcohol intake. For the area of injury to the artery in your upper arm, please keep an eye on this and let your doctor know if it becomes more swollen, painful, or becomes red. If you develop a fever, please return to the hospital. It was a pleasure taking care of you! Pending Studies at Discharge: No Stand-Alone Forms: My [facility], Work/School Release, Smoking Cessation Medications and DC Order Prescriptions: New folic acid 1 mg Tablet 1 mg PO QAM Qty: 30 0RF Rx Instructions: Orlo-qop-kvpubyt thiamine HCl (vitamin B1) 100 mg Tablet 100 mg PO QAM Qty: 30 0RF Rx Instructions: Ulkz-die-eyobdie insulin glargine [Lantus Solostar U-100 Insulin] 100 unit/mL (3 mL) insulin pen 30 unit subcut DAILY Qty: 15 0RF insulin lispro [Humalog KwikPen Insulin] 100 unit/mL insulin pen 8 unit subcut AC Qty: 15 0RF (DME) pen needle, diabetic [Pen Needle] 32 gauge x 5/32" needle See Rx Instructions .Route Qty: 100 0RF Rx Instructions: To inject up to 4 times a day (DME) OneTouch Ultra Test Strip See Rx Instructions .Route Qty: 100 0RF Rx Instructions: To test blood sugar up to 4 times a day Continued (DME) FreeStyle Valeri 3 Sensor Device See Rx Instructions .Route Qty: 2 3RF Rx Instructions: scan 3 times daily and as needed multivitamin Tablet 1 tab PO QAM Rx Instructions: otc unable to verify albuterol sulfate 90 mcg/actuation HFA aerosol inhaler 1 puff INHALATION DIRECTED PRN (Reason: sob) Rx Instructions: filled 06/18 30 day supply valacyclovir 500 mg tablet 500 mg PO UD PRN (Reason: Outbreak) Rx Instructions: last filled 10/07/23 TAKE 1 TABLET BY MOUTH TWICE A DAY NEEDED FOR OUT BREAK FOR 3 DAYS Changed atorvastatin 10 mg tablet 10 mg PO QAM Qty: 30 0RF Rx Instructions: 10 mg po daily. last filled 10/13/23 90 day supply Discontinued azithromycin 250 mg tablet 250 mg PO DIRECTED Rx Instructions: As directed on package. filled 06/18 5 day supply Ozempic 0.25 mg or 0.5 mg (2 mg/3 mL) pen injector 0.5 mg subcut UD Rx Instructions: 0.5 mg subcut wk. No fill history available Discharge Orders: Discharge Order (Routine); Ordered 06/26/24 Ordered By: Marlene Castro Admission Data Admit Date/Time: 06/19/24 13:54 Attending Provider: Marlene Castro Admit Provider: Rosendo Wang Primary Care Provider: Alec Rosenberg Other Providers: Rosendo Wang; Hao Garg; Shila James Other Interventions: Discharge Summary Assessment (RN) Last Done: 06/26/24 18:00 Hospital Stay Data Consultations 06/19/24 12:08 ED Decision to Admit Stat 06/19/24 15:33 Consult Chute Feeder Routine 06/21/24 09:03 Consult Nephrology Routine Diagnostic Imagining Performed 06/19/24 11:38 CT head/brain wo con Stat 06/20/24 10:03 US renal/blad retro comp Routine 06/21/24 07:01 US venous doppler UE RT Routine 06/25/24 10:14 US arm [US extremity non-vascular ltd] Urgent Pending Results Patient Have Any Pending Studies at Discharge: No Discharge Instructions Given to Patient (Per Discharging Provider) You were admitted with severe acidosis from elevated blood sugars as well as sepsis from pneumonia and influenza A. You were on a ventilator temporarily for respiratory support. You were treated with antibiotics for your pneumonia and had improvement. He also had kidney and liver injury which are improving. Please have blood work to check your liver enzymes and kidney function in 1 week with your PCP. For your diabetes, it is very important that you always take the long-acting and short acting insulin as prescribed to prevent acidosis in the future. It is recommended that you follow-up with an sack cleaning hand as you may in fact have type 1 diabetes. You may need to have special testing to further determine this. It is very important also that you abstain from or significantly cut back on your alcohol intake. For the area of injury to the artery in your upper arm, please keep an eye on this and let your doctor know if it becomes more swollen, painful, or becomes red. If you develop a fever, please return to the hospital. It was a pleasure taking care of you! Total Time Total Time Spent Total Time Spent (In Minutes): 40 min Total Time Includes: Examination of the Patient, Discharge Planning and Medication Reconciliation Coding Level of Care Code 00735 INP/OBS DISCH >30 MIN Diagnoses DKA (diabetic ketoacidosis) E11.11 Diabetes mellitus complication detail: with coma Diabetes mellitus type: type 2 Influenza A J10.1 Streptococcal pneumonia J15.4 Alcohol use disorder F19.90 Acute kidney injury N17.9
[2024-06-26 18:01] VITALS: BP 107/69
--- NOTE | 2024-06-28 07:29 | Coding Query ---
SEPSIS To promote full compliance with coding requirements relating to patient care, physician participation is requested in all cases of java analyst uncertainty. Please assist us with the question(s) below: In responding to this query, please exercise your independent professional judgement. The fact that a question is asked does not imply that any particular answer is desired or expected. We appreciate your clarification on this issue. Throughout the medical record, you have clearly documented a localized infection and your patient has clinical evidence of a generalized sepsis or severe sepsis. The term urosepsis is a nonspecific entity and is coded as an UTI. If the patient has sepsis, severe sepsis, from an urinary source or some other source, please clarify in your response below. The medical record reflects the following clinical findings: (With dates as appropriate) (Body temperature of >38.3 C(101 F) or <36 C(96.8F), pulse >90/minute, respirations >20/minute, WBC count >12,000 or <4,000, altered mental status, significant edema or positive fluid balance, hyperglycemia without diabetes, hypotension, metabolic acidosis (elev. lactate level, anion gap or reduced blood pH), shock, positive blood culture (enter organism) ____ ()Bacteremia (Nonspecific laboratory finding of bacteria in the blood) Specify Organism () Present on Admission () Not present on admission () Unable to clinically determine () Septicemia (Systemic disease associated with the presence of pathogenic microorganisms in the blood): Specify Organism () Present on Admission () Not present on admission () Unable to clinically determine () Sepsis Specify Organism Specify Associated Condition/Diagnosis () Present on Admission () Not present on admission () Unable to clinically determine () Severe Sepsis (Sepsis associated with acute organ dysfunction) Specify Organism Specify Associated Condition/Diagnosis () Present on Admission () Not present on admission () Unable to clinically determine (x) Septic Shock (Severe sepsis with acute circulatory failure, unexplained by other causes) (x) Present on Admission () Not present on admission () Unable to clinically determine () Other, patient has: MTDD
--- NOTE | 2024-06-29 11:35 | Procedure Note ---
Procedure Note Date of Service June 19, 2024 Procedure Date: noted above Procedure: Endotracheal intubation Pre-procedure Diagnosis: Severe acute encephalopathy, hypoxic respiratory failure Post-procedure Diagnosis: same as above Prior to Procedure: Informed Consent: emergent Attending Staff: Marion Garg DO The identity of the patient was confirmed and a bedside time out was performed. Description of Procedure: Patient was evaluated and required intubation for impending respiratory failure. The patient was prepared in the usual fashion. A video laryngoscope was used. A 8 mm inner diameter endotrachial tube was placed endotracheally. A grade 1 view was obtained. The endotracheal tube was noted to pass through the vocal cords. Chest rise was bilateral. Bilateral breath sounds were heard without air sounds in the abdomen. Mist was noted in the endotracheal tube. End-tidal CO2 measurement was positive. Chest x-ray shows proper endotracheal tube placement. Complications: None Findings: Not applicable Specimens: Not applicable Estimated blood loss: Zero [facility] [place] Codes (Charges) Resuscitation Resuscitation: 23246 Endotracheal Intubation, emergency Coding CPT Codes Resuscitation - Resuscitation: 74692 Endotracheal Intubation, emergency ([id number]) Additional Codes Date of Service (PG.SURGERY)
== END 2024-06-26 18:34 | disposition home or self-care (01) | DRG 871 ==
LOC: ED 10:54 → SUATTDRO 13:54 → 1E 13:54 → 2S 06-23 22:22